=== PATIENT | female | born 1960 | race African-American/Black ===

== ENCOUNTER 2020-04-11 12:13 | Inpatient (IN) | payer MEDICAID ==
[~2020-04-11] VITALS: Ht 170.2 cm; Wt 136.1 kg
[~2020-04-11 12:13] MED LIST: AMLODIPINE BESY10 MG ORAL; ASPIR 8181 MG ORAL; ATORVASTATIN CA20 MG ORAL; BACTRIM-DS1 EA ORAL; CLOTRIMAZOLE10 GM MC; FLAGYL500 MG ORAL; LEVOFLOXACIN500 MG ORAL; LISINOPRIL10 MG ORAL; LUMIGAN2.5 ML BOTH EYES; MELOXICAM15 MG PO; MOBIC15 MG ORAL; NAPROXEN250 MG ORAL; NAPROXEN500 M2 ORAL; OMEPRAZOLE20 M3 ORAL; TIMOPTIC 0.25%1 DROP BOTH EYES
[2020-04-11 12:29] VITALS: BP 160/80
[2020-04-11 13:10] LABS: BASOPHILS % (AUTO) 0.7 % (0.0-2.0); EOSINOPHILS % (AUTO) 1.6 % (0.0-3.0); HEMATOCRIT 39.3 % (37.0-47.0); HEMOGLOBIN 13.3 G/DL (12.0-16.0); MEAN CORPUSCULAR VOLUME 78 FL (80-99); MONOCYTES % (AUTO) 6.1 % (1.0-10.0); NEUTROPHILS % (AUTO) 64.6 % (45.0-75.0); PLATELET COUNT 313 K/UL (150-450); RED BLOOD COUNT 5.05 M/UL (4.20-5.40); WHITE BLOOD COUNT 12.4 K/UL (4.8-10.8)
[2020-04-11 13:22] LABS: ANION GAP 12 mmol/L (5-15); BLOOD UREA NITROGEN 8 mg/dL (7-18); CALCIUM 9.3 MG/DL (8.5-10.1); CARBON DIOXIDE 26 MMOL/L (21-32); CHLORIDE 100 MMOL/L (98-107); CREATININE 0.9 MG/DL (0.55-1.30); POTASSIUM 4.7 MMOL/L (3.5-5.1); SODIUM 137 MMOL/L (136-145)
[2020-04-11 13:26] LABS: ALANINE AMINOTRANSFERASE 27 U/L (12-78); ALBUMIN 3.1 G/DL (3.4-5.0); ALBUMIN/GLOBULIN RATIO 0.6 (1.0-2.7); ALKALINE PHOSPHATASE 63 U/L (46-116); ASPARTATE AMINO TRANSFERASE 37 U/L (15-37); BILIRUBIN,TOTAL 0.5 MG/DL (0.2-1.0)
[2020-04-11] MEDS ORDERED: Omnipaque-300 100ml vial INJ PRN (13:30)
[2020-04-11 13:50] LABS: APPEARANCE,URINE SLIGHTLY CLOUDY; BILIRUBIN, URINE NEGATIVE (NEGATIVE); GLUCOSE, URINE (UA) NEGATIVE (NEGATIVE); KETONES,URINE NEGATIVE (NEGATIVE); LEUKOCYTE ESTERASE ,URINE NEGATIVE (NEGATIVE); NITRITE,URINE NEGATIVE (NEGATIVE); PH,URINE 6 (4.5-8.0); PROTEIN,URINE NEGATIVE (NEGATIVE); UROBILINOGEN,URINE NORMAL MG/DL (0.0-1.0)
[2020-04-11 13:59] LABS: COLOR,URINE YELLOW
[2020-04-11] MEDS ORDERED: Vancomycin 1.5gm/NS Premix 275 ML IVPB SCH (14:00)
--- NOTE | 2020-04-11 14:09 | Consultation ---
History of Present Illness General Date patient seen: April 11, 2020 Reason for Hospitalization: Skin Rash/Abscess Present Illness HPI This is a very pleasant 59-year-old female well-known to me from prior admission March of last year who presented initially last year with a right breast abscess that was concerning for potential malignancy as well at the time. Patient was taken to the operating room incision and drainage and debridement was done tissues were sent for the pathology. At that time pathology was negative patient tolerated incision and drainage well dressings well care well follow-up outpatient and recovered well since then. She has been well for the past year until proximately 2 weeks ago when she developed some pain and discomfort in her right breast again. Similar to prior and progressive over the past 2 weeks. Went to [facility] today where she was evaluated diagnosed with an abscess had a needle drainage and discharged. Patient did not improve so she came to [facility] for evaluation. She was going to get better I was called to evaluate her in the ED where she was noted to have a large right breast cellulitis, tenderness, discomfort. leukocytosis. Allergies: Coded Allergies: No Known Allergies (Unverified , 04/07/19) COVID-19 Screening Contact w/high risk pt: No Recent Travel to affected area: No Experienced COVID-19 symptoms?: No Medication History Scheduled Amlodipine Besylate* (Amlodipine Besylate*), 10 MG ORAL DAILY, (Reported) Aspirin* (Aspir 81*), 81 MG ORAL DAILY, (Reported) Atorvastatin Calcium* (Atorvastatin Calcium*), 10 MG ORAL BEDTIME, (Reported) Bimatoprost (Lumigan), 1 DROP BOTH EYES DAILY, (Reported) Levofloxacin (Levofloxacin*), 750 MG ORAL DAILY, (Reported) Lisinopril* (Lisinopril*), 10 MG ORAL DAILY, (Reported) Meloxicam* (Mobic*), 15 MG ORAL DAILY, (Reported) Meloxicam* (Meloxicam*), 15 MG PO DAILY, (Reported) Metronidazole* (Flagyl*), 500 MG ORAL EVERY 8 HOURS, (Reported) Naproxen* (Naproxen*), 500 MG ORAL TWICE A DAY, (Reported) Naproxen* (Naprosyn*), 500 MG ORAL TWICE A DAY, (Reported) Omeprazole (Omeprazole), 20 MG ORAL DAILY, (Reported) Timolol Maleate (Timolol Maleate), 1 DROP BOTH EYES TWICE A DAY, (Reported) Trimethoprim/Sulfamethoxazole (Bactrim Ds Tablet), 1 TAB ORAL TWICE A DAY, ( Reported) Miscellaneous Medications Clotrimazole (Clotrimazole), 10 GM MC, (Reported) Patient History History Provided By: Patient Healthcare decision maker Resuscitation status Advanced Directive on File Past Medical/Surgical History Past Medical/Surgical History: (1) Cellulitis of right breast (2) Abscess of right breast Review of Systems Review of Symptoms General ROS: no weight loss or fever Psychological ROS: no depression or mood changes, no memory loss Ophthalmic ROS: no visual changes or eye irritation ENT ROS: no nasal congestion, hearing loss, dizziness Allergy and Immunology ROS: no allergic symptoms or urticaria Hematological and Lymphatic ROS: no swollen glands, unusual bleeding or bruising Endocrine ROS: no polyuria, polydipsia, weight changes, temperature intolerance Respiratory ROS: no cough, shortness of breath, or wheezing Cardiovascular ROS: no chest pain or dyspnea on exertion Gastrointestinal ROS: denies abdominal pain, bright red blood in stool. Musculoskeletal ROS: no myalgias or arthralgias Neurological ROS: no TIA or stroke symptoms Dermatological ROS: no new or changing skin lesions, rashes or pruritis Physical Exam Physical Exam General appearance: alert, cooperative, no distress, appears stated age Head: Normocephalic, without obvious abnormality, atraumatic Eyes: conjunctivae/corneas clear. PERRL, EOM's intact. Fundi benign Throat: Lips, mucosa, and tongue normal. Teeth and gums normal Neck: supple, symmetrical, trachea midline, no adenopathy, thyroid: not enlarged, symmetric, no tenderness/mass/nodules, no carotid bruit and no JVD Lungs: clear to auscultation bilaterally Heart: regular rate and rhythm, S1, S2 normal, no murmur, click, rub or gallop Abdomen: soft, non-tender. Bowel sounds normal. No masses, no organomegaly Extremities: extremities normal, atraumatic, no cyanosis or edema Pulses: 2+ and symmetric Skin: Skin right breast cellulitis Neurologic: Grossly normal Last 24 Hour Vital Signs Date Time Temp Pulse Resp B/P (MAP) Pulse Ox O2 Delivery O2 Flow Rate FiO2 04/11/20 12:29 98.4 80 18 160/80 98 Room Air 04/11/20 12:23 98.4 91 18 165/80 (108) 98 Room Air Laboratory Tests Test 04/11/20 12:48 04/11/20 12:55 White Blood Count 12.4 K/UL (4.8-10.8) H Red Blood Count 5.05 M/UL (4.20-5.40) Hemoglobin 13.3 G/DL (12.0-16.0) Hematocrit 39.3 % (37.0-47.0) Mean Corpuscular Volume 78 FL (80-99) L Mean Corpuscular Hemoglobin 26.4 PG (27.0-31.0) L Mean Corpuscular Hemoglobin Concent 33.9 G/DL (32.0-36.0) Red Cell Distribution Width 12.0 % (11.6-14.8) Platelet Count 313 K/UL (150-450) Mean Platelet Volume 6.6 FL (6.5-10.1) Neutrophils (%) (Auto) 64.6 % (45.0-75.0) Lymphocytes (%) (Auto) 27.0 % (20.0-45.0) Monocytes (%) (Auto) 6.1 % (1.0-10.0) Eosinophils (%) (Auto) 1.6 % (0.0-3.0) Basophils (%) (Auto) 0.7 % (0.0-2.0) Prothrombin Time 11.3 SEC (9.30-11.50) Prothromb Time International Ratio 1.0 (0.9-1.1) Activated Partial Thromboplast Time 28 SEC (23-33) Sodium Level 137 MMOL/L (136-145) Potassium Level 4.7 MMOL/L (3.5-5.1) Chloride Level 100 MMOL/L (98-107) Carbon Dioxide Level 26 MMOL/L (21-32) Anion Gap 12 mmol/L (5-15) Blood Urea Nitrogen 8 mg/dL (7-18) Creatinine 0.9 MG/DL (0.55-1.30) Estimat Glomerular Filtration Rate > 60 mL/min (>60) Glucose Level 134 MG/DL (74-106) H Lactic Acid Level Pending Calcium Level 9.3 MG/DL (8.5-10.1) Total Bilirubin 0.5 MG/DL (0.2-1.0) Aspartate Amino Transf (AST/SGOT) 37 U/L (15-37) Alanine Aminotransferase (ALT/SGPT) 27 U/L (12-78) Alkaline Phosphatase 63 U/L (46-116) Total Protein 8.0 G/DL (6.4-8.2) Albumin 3.1 G/DL (3.4-5.0) L Globulin 4.9 g/dL Albumin/Globulin Ratio 0.6 (1.0-2.7) L Urine Color Yellow Urine Appearance Slightly cloudy Urine pH 6 (4.5-8.0) Urine Specific Jud 1.015 (1.005-1.035) Urine Protein Negative (NEGATIVE) Urine Glucose (UA) Negative (NEGATIVE) Urine Ketones Negative (NEGATIVE) Urine Blood Negative (NEGATIVE) Urine Nitrite Negative (NEGATIVE) Urine Bilirubin Negative (NEGATIVE) Urine Urobilinogen Normal MG/DL (0.0-1.0) Urine Leukocyte Esterase Negative (NEGATIVE) Urine RBC Pending Urine WBC Pending Urine Squamous Epithelial Cells Pending Urine Bacteria Pending Height (Feet): 5 Height (Inches): 7.00 Weight (Pounds): 300 Medications Current Medications Medications (Trade) Dose Ordered Sig/Yoan Route PRN Reason Start Time Stop Time Status Last Admin Dose Admin Iohexol (OMNIPAQUE-300 100ml) 100 ml NOW PRN INJ Radiology Procedure 04/11/20 13:30 04/13/20 13:30 Vancomycin/Sodium Chloride 275 ml @ 137.5 mls/ hr Q24H IVPB 04/11/20 14:00 04/16/20 13:59 Assessment/Plan Problem List: (1) Abscess of right breast Assessment & Plan: This is a 5-year-old female with history of right breast abscess a year ago status post I&D who presented to [facility] for evaluation of similar events approximately a year later. She went to [place] this morning complaining of 2 weeks of right breast pain and cellulitis which time states she had an ultrasound which identified some fluid had a needle drainage given antibiotics oral discharge but did not improve significantly with [facility]. Currently no nausea vomiting fever chills but feels unwell and pain in her right breast. Currently no drainage. Leukocytosis identified. On evaluation dense right breast cellulitis prior incision in the 12 o'clock position of the breast well-healed with keloid scar no abscess or fluctuance currently identifiable on examination. I know this patient will take care of a year ago when she had similar event. It was very difficult for her to heal her breast infection prior and cellulitis initially formed into phlegmon then larger fluid collection that required surgical intervention. High probability she will form a similar event. Will admit for IV antibiotics and close monitoring potential incision and drainage if necessary of phlegmon and abscess formed. Lung discussion with patient about these findings. Discussed with PCP for admission plan. Of note patient had her last mammogram prior to the last incision and drainage in March 2019. That mammogram per patient's report was completely benign and negative though she has not been able to provide me with the report nor tell me exactly where was performed so I can obtain the report. Intraoperative pathology taken from the abscess cavity prior with good samples identified no malignant cells or etiology of potential malignancy. Though there is a possibility of malignant etiology there is also likely that patient is just developed another abscess and cellulitis. I did have discussion with the patient and strongly recommend that once improved and recovered from this despite surgical mention or not her medical therapy that she does need to have very clear evaluation for outpatient mammogram as indicated and recommended. Okay for diet admit to medicine IV antibiotics We will follow with recommendations thank you for let me participate in patient' s care ICD Codes: N61.1 - Abscess of the breast and nipple SNOMED: [id number] (2) Cellulitis of right breast ICD Codes: N61.0 - Mastitis without abscess SNOMED: [id number] Eleno Giang April 11, 2020 14:09
[2020-04-11] MEDS ORDERED: Mylanta II UD 30ml ORAL PRN (14:15)
[2020-04-11] MEDS ORDERED: HYDROcodone/Acetamin 5/325 tab ORAL PRN (14:15)
[2020-04-11] MEDS ORDERED: DiphenhydrAMINE 25mg Tab ORAL PRN (14:15)
[2020-04-11] MEDS ORDERED: Milk of Magnesia 30ml Ud ORAL PRN (14:15)
[2020-04-11] MEDS ORDERED: LORazepam 1mg tab ORAL PRN (14:15)
--- NOTE | 2020-04-11 14:26 | Diagnostic Imaging Report ---
Indication: Chest pain Technique: XRAY Chest 1v Comparison: 04/07/2019 Findings: Heart size and mediastinal contours are within normal limits for AP technique and stable compared to the prior exam. There is no focal airspace consolidation, pneumothorax or pleural effusion. There are degenerative changes in the spine. Osseous structures demonstrate no acute abnormality. Impression: No radiographic evidence of acute cardiopulmonary disease.
--- NOTE | 2020-04-11 14:45 | History and Physical ---
History of Present Illness General Date patient seen: April 11, 2020 Time patient seen: 14:00 Reason for Hospitalization: Skin Rash/Abscess Present Illness HPI 59-year-old female with HTN, HLD, morbid obesity, right breast abscess s/p operating room incision and drainage and debridement by Dr. Giang . She has been well for the past year until proximately 2 weeks ago when she developed some pain and discomfort in her right breast again. Similar to prior and progressive over the past 2 weeks. Went to [facility] today where she was diagnosed with an abscess had a needle drainage and discharged. Patient did not improve so she came to [facility] for evaluation. Patient denies any fever, chills, myalgia, cough, dyspnea or chest pain. In ED she was diagnosed with right breast cellulitis with possible residual abscess, referred for admission. Social Hx: Current cigarette smoker, 0.5 PPD Family Hx: No premature cad Allergies: Coded Allergies: No Known Allergies (Unverified , 04/07/19) COVID-19 Screening Contact w/high risk pt: No Recent Travel to affected area: No Experienced COVID-19 symptoms?: No COVID-19 symptoms experienced: Fever (T>100.4F or >38C), Shortness of Breath, Cough Medication History Scheduled Amlodipine Besylate* (Amlodipine Besylate*), 10 MG ORAL DAILY, (Reported) Aspirin* (Aspir 81*), 81 MG ORAL DAILY, (Reported) Atorvastatin Calcium* (Atorvastatin Calcium*), 10 MG ORAL BEDTIME, (Reported) Bimatoprost (Lumigan), 1 DROP BOTH EYES DAILY, (Reported) Levofloxacin (Levofloxacin*), 750 MG ORAL DAILY, (Reported) Lisinopril* (Lisinopril*), 10 MG ORAL DAILY, (Reported) Meloxicam* (Mobic*), 15 MG ORAL DAILY, (Reported) Meloxicam* (Meloxicam*), 15 MG PO DAILY, (Reported) Metronidazole* (Flagyl*), 500 MG ORAL EVERY 8 HOURS, (Reported) Naproxen* (Naproxen*), 500 MG ORAL TWICE A DAY, (Reported) Naproxen* (Naprosyn*), 500 MG ORAL TWICE A DAY, (Reported) Omeprazole (Omeprazole), 20 MG ORAL DAILY, (Reported) Timolol Maleate (Timolol Maleate), 1 DROP BOTH EYES TWICE A DAY, (Reported) Trimethoprim/Sulfamethoxazole (Bactrim Ds Tablet), 1 TAB ORAL TWICE A DAY, ( Reported) Miscellaneous Medications Clotrimazole (Clotrimazole), 10 GM MC, (Reported) Patient History History Provided By: Patient, Medical Record Healthcare decision maker Resuscitation status Advanced Directive on File Review of Systems Constitutional: Denies: chills, sweats, fever Eye: Denies: eye pain ENT: Denies: ear pain Respiratory: Denies: cough Cardiovascular: Denies: chest pain Gastrointestinal: Denies: abdominal pain Genitourinary: Denies: discharge Musculoskeletal: Denies: back pain Skin: Reports: rash - Right breast redness Neurological: Denies: headache Physical Exam General Appearance: no apparent distress, alert Lines, tubes and drains: central line, PICC Neck: normal alignment, supple Respiratory/Chest: lungs clear, normal breath sounds, no respiratory distress Breasts: other - Rigth breast erythema and warmth with induration 11-12 o'clock Cardiovascular/Chest: normal rate, regular rhythm Abdomen: non tender, soft Extremities: non-tender, normal inspection Skin Exam: other Last 24 Hour Vital Signs Date Time Temp Pulse Resp B/P (MAP) Pulse Ox O2 Delivery O2 Flow Rate FiO2 04/11/20 12:29 98.4 80 18 160/80 98 Room Air 04/11/20 12:23 98.4 91 18 165/80 (108) 98 Room Air Laboratory Tests Test 04/11/20 12:48 04/11/20 12:55 White Blood Count 12.4 K/UL (4.8-10.8) H Red Blood Count 5.05 M/UL (4.20-5.40) Hemoglobin 13.3 G/DL (12.0-16.0) Hematocrit 39.3 % (37.0-47.0) Mean Corpuscular Volume 78 FL (80-99) L Mean Corpuscular Hemoglobin 26.4 PG (27.0-31.0) L Mean Corpuscular Hemoglobin Concent 33.9 G/DL (32.0-36.0) Red Cell Distribution Width 12.0 % (11.6-14.8) Platelet Count 313 K/UL (150-450) Mean Platelet Volume 6.6 FL (6.5-10.1) Neutrophils (%) (Auto) 64.6 % (45.0-75.0) Lymphocytes (%) (Auto) 27.0 % (20.0-45.0) Monocytes (%) (Auto) 6.1 % (1.0-10.0) Eosinophils (%) (Auto) 1.6 % (0.0-3.0) Basophils (%) (Auto) 0.7 % (0.0-2.0) Prothrombin Time 11.3 SEC (9.30-11.50) Prothromb Time International Ratio 1.0 (0.9-1.1) Activated Partial Thromboplast Time 28 SEC (23-33) Sodium Level 137 MMOL/L (136-145) Potassium Level 4.7 MMOL/L (3.5-5.1) Chloride Level 100 MMOL/L (98-107) Carbon Dioxide Level 26 MMOL/L (21-32) Anion Gap 12 mmol/L (5-15) Blood Urea Nitrogen 8 mg/dL (7-18) Creatinine 0.9 MG/DL (0.55-1.30) Estimat Glomerular Filtration Rate > 60 mL/min (>60) Glucose Level 134 MG/DL (74-106) H Lactic Acid Level Pending Calcium Level 9.3 MG/DL (8.5-10.1) Total Bilirubin 0.5 MG/DL (0.2-1.0) Aspartate Amino Transf (AST/SGOT) 37 U/L (15-37) Alanine Aminotransferase (ALT/SGPT) 27 U/L (12-78) Alkaline Phosphatase 63 U/L (46-116) Total Protein 8.0 G/DL (6.4-8.2) Albumin 3.1 G/DL (3.4-5.0) L Globulin 4.9 g/dL Albumin/Globulin Ratio 0.6 (1.0-2.7) L Urine Color Yellow Urine Appearance Slightly cloudy Urine pH 6 (4.5-8.0) Urine Specific [place] 1.015 (1.005-1.035) Urine Protein Negative (NEGATIVE) Urine Glucose (UA) Negative (NEGATIVE) Urine Ketones Negative (NEGATIVE) Urine Blood Negative (NEGATIVE) Urine Nitrite Negative (NEGATIVE) Urine Bilirubin Negative (NEGATIVE) Urine Urobilinogen Normal MG/DL (0.0-1.0) Urine Leukocyte Esterase Negative (NEGATIVE) Urine RBC 0-2 /HPF (0 - 2) Urine WBC 0-2 /HPF (0 - 2) Urine Squamous Epithelial Cells Many /LPF (NONE/OCC) H Urine Bacteria Few /HPF (NONE) Height (Feet): 5 Height (Inches): 7.00 Weight (Pounds): 300 Medications Current Medications Medications (Trade) Dose Ordered Sig/Yoan Route PRN Reason Start Time Stop Time Status Last Admin Dose Admin Acetaminophen (Tylenol) 650 mg Q4H PRN ORAL Temp >100.5 04/11/20 14:15 05/11/20 14:14 UNV Acetaminophen/ Hydrocodone Bitart ([place] 5/325) 1 tab Q4H PRN ORAL Moderate Pain (Pain Scale 4-6) 04/11/20 14:15 04/18/20 14:14 UNV Al Hydroxide/Mg Hydroxide (Mylanta II) 30 ml Q6H PRN ORAL dyspepsia 04/11/20 14:15 05/11/20 14:14 UNV Bisacodyl (Dulcolax) 10 mg HSPRN PRN RECTAL Constipation 04/11/20 14:15 07/10/20 14:14 UNV Dextrose (Dextrose 50%) 25 ml Q30M PRN IV Hypoglycemia 04/11/20 14:15 07/10/20 14:14 UNV Dextrose (Dextrose 50%) 50 ml Q30M PRN IV Hypoglycemia 04/11/20 14:15 07/10/20 14:14 UNV Dextrose/Sodium Chloride 1,000 ml @ 75 mls/hr [id number] IV 04/11/20 15:10 05/11/20 15:09 UNV Diphenhydramine HCl (Benadryl) 25 mg Q6H PRN ORAL Itching/Pruritis 04/11/20 14:15 05/11/20 14:14 UNV Docusate Sodium (Colace) 100 mg EVERY 12 HOURS ORAL 04/11/20 21:00 05/11/20 20:59 UNV Iohexol (OMNIPAQUE-300 100ml) 100 ml NOW PRN INJ Radiology Procedure 04/11/20 13:30 04/13/20 13:30 Lorazepam (Ativan) 1 mg Q4H PRN ORAL For Anxiety 04/11/20 14:15 04/18/20 14:14 UNV Magnesium Hydroxide (Mom) 30 ml HSPRN PRN ORAL Constipation 04/11/20 14:15 05/11/20 14:14 UNV Ondansetron HCl (Zofran) 4 mg Q6H PRN IVP Nausea & Vomiting 04/11/20 14:15 05/11/20 14:14 UNV Piperacillin Sod/ Tazobactam Sod 3.375 gm/Sodium Chloride 110 ml @ 27.5 mls/hr EVERY 8 HOURS IVPB 04/11/20 22:00 04/16/20 21:59 UNV Temazepam (Restoril) 15 mg HSPRN PRN ORAL Insomnia 04/11/20 14:15 04/18/20 14:14 UNV Vancomycin HCl 1 gm/Dextrose 275 ml @ 183.708 mls/hr Q24H IVPB 04/11/20 14:15 04/16/20 14:14 UNV Vancomycin/Sodium Chloride 275 ml @ 137.5 mls/ hr Q24H IVPB 04/11/20 14:00 04/16/20 13:59 04/11/20 14:21 Assessment/Plan Diagnosis [place] I: 59 year old woman with HTN, HLD, morbid obesity, active smoker who presented with right breast warmth, erythema and induration. #Sepsis #Right breast cellulitis and abscess -admit to inpatient -appreciate surgery recs -broad spectrum antibiotics with vancomycin and Zosyn -monitor CBC and vitals -follow up wound and blood cultures -IV fluids -CT chest pending #HTN #HLD #Morbid obesity -continue amlodipine and Lipitor -Hold ASA in case she requires surgery #Cigarette smoker -smoking cessation advised -Mili ruffin I spent 72 minutes on this patient's case, and 38 minutes was dedicated to counseling and/or care coordination with consulting MDs, PCP, RN Aayush Rhoades MD April 11, 2020 14:45
[2020-04-11] MEDS: D5NS 1,000 ML IV SCH (15:10)
[2020-04-11 15:41] VITALS: BP 117/70
--- NOTE | 2020-04-11 16:51 | Emergency Room Report ---
History of Present Illness General Chief Complaint: Skin Rash/Abscess Source: Patient, Medical Record Present Illness HPI 59-year-old female with history of breast abscess here complaining of swelling in right breast and drainage as well as has had pain for 2 weeks. Patient was seen [facility] 1 year ago for similar symptoms, breast biopsy, mammogram within normal limit, no cancerous mass was found. Patient went to [place] earlier today and was told that it needs to be operated on however was discharged. Also minimal pus was drained denies any fever chills, shortness of breath. Patient reports that she came here to see Dr. Giang as he took care of her last year when she had a similar condition. Patient is stable. Obvious swelling noted on right breast on the lateral side. Some retraction of the nipple noted. No nipple discharge noted. 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 Patient History Last Menstrual Period: na Now: No Immunizations: UTD Reviewed Nursing Documentation: PMH: Agreed; PSxH: Agreed Nursing Documentation-PMH Past Medical History: No History, Except For Hx Hypertension: Yes Review of Systems All Other Systems: negative except mentioned in HPI Physical Exam Vital Signs Date Time Temp Pulse Resp B/P (MAP) Pulse Ox O2 Delivery O2 Flow Rate FiO2 04/11/20 12:23 98.4 91 18 165/80 (108) 98 Room Air Sp02 EP Interpretation: reviewed, normal General Appearance: no apparent distress, alert, GCS 15, non-toxic Head: normocephalic, atraumatic Eyes: bilateral eye normal inspection, bilateral eye PERRL ENT: hearing grossly normal, normal pharynx, no angioedema, normal voice Neck: full range of motion, supple/symm/no masses Respiratory: chest non-tender, lungs clear, normal breath sounds, no rhonchi, no retraction, speaking full sentences Cardiovascular #1: regular rate, rhythm, no edema, no murmur Gastrointestinal: non tender, soft Genitourinary: no CVA tenderness Musculoskeletal: back normal, inflammation - Right breast on the lateral side action of the nipple, no calf tenderness Neurologic: alert, motor strength/tone normal, oriented x3, sensory intact, responsive, speech normal Psychiatric: judgement/insight normal, memory normal, mood/affect normal, no suicidal/homicidal ideation Skin: other - Cellulitis right breast Lymphatic: no adenopathy Medical Decision Making PA Attestation All my diagnosis and treatment plans were reviewed ad discussed with my supervising physician Dr. Deras Diagnostic Impression: Primary Impression: Abscess of right breast ER Course 59-year-old female with history of breast abscess here complaining of swelling in right breast and drainage as well as has had pain for 2 weeks. Patient was seen [facility] 1 year ago for similar symptoms, breast biopsy, mammogram within normal limit, no cancerous mass was found. Patient went to [place] earlier today and was told that it needs to be operated on however was discharged. Also minimal pus was drained denies any fever chills, shortness of breath. Patient reports that she came here to see Dr. Giang as he took care of her last year when she had a similar condition. Patient is stable. Obvious swelling noted on right breast on the lateral side. Some retraction of the nipple noted. No nipple discharge noted. Ddx considered but are not limited to : Cellulitis, breast cancer,, superficial infection, abscess Vital signs: are WNL, pt. is afebrile H&PE are most consistent with: Breast abscess and cellulitis ORDERS:, PT/PTT, CBC, CMP, UA, lactic acid, CT chest with contrast, ED INTERVENTIONS: Lilaluizacarine Patient was admitted with diagnosis of breast abscess cellulitis to Dr. Gutierrez under supervision of Dr.: Braeden Giang also examined accepted the patient pt stable at time of admission Patient was evaluated in the context of the global COVID-19 pandemic, which necessitated consideration that the patient might be at risk for infection with the SARS-COV-2 virus that causes COVID-19. Institutional protocols and algorithms that pertain to the evaluation of patients at risk for COVID-19 are in a state of rapid change based on information relieved by multiple regulatory bodies including the CDC and the federal and state organizations. These policies and algorithms were followed during the patient's care in the ED. Chest X-Ray Diagnostic Results Chest X-Ray Diagnostic Results : Chest X-Ray Ordered: Yes # of Views/Limited/Complete: 1 View Indication: Other EP Interpretation: Yes PA Xray: Interpretation reviewed, by supervising MD, and agrees with findings. Interpretation: no consolidation, no effusion, no pneumothorax Impression: No acute disease Electronically Signed by: Amaris Min PA-C CT/MRI/US Diagnostic Results CT/MRI/US Diagnostic Results : Imaging Test Ordered: CT chest with contrast Impression Inflammatory changes possible abscess right breast Last Vital Signs Date Time Temp Pulse Resp B/P (MAP) Pulse Ox O2 Delivery O2 Flow Rate FiO2 04/11/20 15:41 98.8 74 19 117/70 98 Room Air Disposition: ADMITTED INPATIENT Condition: Stable Referrals: NON PHYSICIAN (PCP) Amaris Sheehan April 11, 2020 16:51
--- NOTE | 2020-04-11 16:53 | Diagnostic Imaging Report ---
EXAM: CT CT Chest w Contrast CLINICAL HISTORY: Right chest/breast pain. Swelling and redness. TECHNIQUE: Axial images obtained through the chest with contrast. All CT scans at this facility are performed using dose modulation techniques as appropriate to a performed exam including the following: automated exposure control with adjustment of the mA and/or kV according to patient size. RADIATION DOSE: CTDIvol: 231.8 mGy DLP: 1719 mGy-cm Dose information generated by the CT scanner is available in PACS. COMPARISON: None FINDINGS: The lungs are clear bilaterally. Cardiac and mediastinal structures are within normal limits. Please note that due to patient body habitus, the breasts are not completely included in the [id number]. In particular, the right breast which is the site of interest is only partially included. The partially included portion shows skin thickening and subcutaneous induration possibly representing focal inflammatory/infectious process. The apparent breast mass is not included in the [id number]. Inflammatory breast cancer cannot be excluded. There are prominent lymph nodes in the right axilla. Limited images through the upper abdomen is unremarkable. IMPRESSION: NO ACUTE CARDIOPULMONARY DISEASE. THE RIGHT BREAST IS INCOMPLETELY VISUALIZED IN THIS EXAM OF THE CHEST. THE PARTIALLY INCLUDED PORTION SHOWS SKIN THICKENING AND SOFT TISSUE INDURATION. THIS COULD REPRESENT FOCAL INFECTIOUS/INFLAMMATORY PROCESS BUT INFLAMMATORY CARCINOMA OF THE BREAST MAY PRESENT SIMILARLY. CT EVALUATION IS NOT OPTIMAL FOR EVALUATION OF BREAST DISEASE. CONSIDER CORRELATION WITH MAMMOGRAM AND BREAST ULTRASOUND. SLIGHTLY PROMINENT RIGHT AXILLARY LYMPH NODES PERHAPS REACTIVE.
--- NOTE | 2020-04-11 17:33 | Emergency Room Report ---
Physical Exam Vital Signs Date Time Temp Pulse Resp B/P (MAP) Pulse Ox O2 Delivery O2 Flow Rate FiO2 04/11/20 12:23 98.4 91 18 165/80 (108) 98 Room Air Medical Decision Making Diagnostic Impression: Primary Impression: Abscess of right breast ER Course Patient seen in the emergency room and evaluated by ANASTASIIA Shi. Patient is seen here for breast abscess and seen by general surgery. Patient will be admitted for further treatment and evaluation. Last Vital Signs Date Time Temp Pulse Resp B/P (MAP) Pulse Ox O2 Delivery O2 Flow Rate FiO2 04/11/20 15:41 98.8 74 19 117/70 98 Room Air Disposition: ADMITTED INPATIENT Condition: Stable Referrals: NON PHYSICIAN (PCP) Thalia Burch M.D. April 11, 2020 17:33
[2020-04-11 18:05] VITALS: BP 141/47
[2020-04-11 20:00] VITALS: BP 96/57
[2020-04-11] MEDS ORDERED: Docusate 100mg cap ORAL SCH (21:00)
[2020-04-11] MEDS: Piperacillin/Tazobactam 3.375 GM in NS 110 ML IVPB SCH (21:50)
[2020-04-12] VITALS: BP 130/86
[2020-04-12] MEDS ORDERED: Vancomycin 1.5gm/NS Premix 275 ML IVPB SCH (02:00)
[2020-04-12 04:00] VITALS: BP 112/67
[2020-04-12] MEDS: D5NS 1,000 ML IV SCH (04:37)
[2020-04-12] MEDS: Piperacillin/Tazobactam 3.375 GM in NS 110 ML IVPB SCH (06:24)
[2020-04-12 07:29] LABS: BASOPHILS % (AUTO) 1.6 % (0.0-2.0); EOSINOPHILS % (AUTO) 2.8 % (0.0-3.0); HEMATOCRIT 37.9 % (37.0-47.0); HEMOGLOBIN 13.1 G/DL (12.0-16.0); LYMPHOCYTES % (AUTO) 31.1 % (20.0-45.0); MEAN CORPUSCULAR VOLUME 77 FL (80-99); NEUTROPHILS % (AUTO) 54.5 % (45.0-75.0); PLATELET COUNT 304 K/UL (150-450); RED CELL DISTRIBUTION WIDTH 11.7 % (11.6-14.8); WHITE BLOOD COUNT 8.4 K/UL (4.8-10.8)
[2020-04-12 08:10] LABS: ALANINE AMINOTRANSFERASE 27 U/L (12-78); ALBUMIN 3.1 G/DL (3.4-5.0); ALBUMIN/GLOBULIN RATIO 0.7 (1.0-2.7); ALKALINE PHOSPHATASE 63 U/L (46-116); ANION GAP 10 mmol/L (5-15); ASPARTATE AMINO TRANSFERASE 12 U/L (15-37); BILIRUBIN,TOTAL 0.4 MG/DL (0.2-1.0); BLOOD UREA NITROGEN 6 mg/dL (7-18); CALCIUM 9.1 MG/DL (8.5-10.1); CARBON DIOXIDE 27 MMOL/L (21-32); CHLORIDE 104 MMOL/L (98-107); CHOLESTEROL 154 MG/DL (< 200); HDL CHOLESTEROL 38 MG/DL (40-60); POTASSIUM 3.9 MMOL/L (3.5-5.1); SODIUM 141 MMOL/L (136-145); TRIGLYCERIDES 86 MG/DL (30-150)
--- NOTE | 2020-04-22 10:42 | Discharge Summary ---
Discharge Summary Hospital Course Date of Admission April 11, 2020 at 14:56 Date of Discharge April 12, 2020 at 07:45 Admitting Diagnosis BREAST ABCESS AND CELLULITIS HPI Araceli Craig is a 59 year old female who was admitted on April 11, 2020 at 14:56 for Breast Abcess And Cellulitis Consultations Surgery Procedures None Hospital Course Patient admitted on 04/11 with right breast cellulitis, possible abscess, started on broad spectrum antibiotics with possible need for I&D. Patient signed out AMA by RN on 04/12 at 7AM prior to my arrival to the hospital and my ability to discuss the risks of leaving when not cleared by the medical team Discharge Discharge Vital Signs As per EMR Discharge Disposition Patient left against medical advice Discharge Diagnoses: (1) Abscess of right breast Aayush Rhoades MD Apr 22, 2020 10:42
== END 2020-04-12 07:45 | disposition left against medical advice (07) | DRG 385 ==
LOC: EMR 12:47 → 4E 14:56 → EDBEDREQ 15:19
DX: N61.1 Abscess of the breast and nipple (principal); I10 Essential (primary) hypertension; E78.5 Hyperlipidemia, unspecified; E66.01 Morbid (severe) obesity due to excess calories; Z68.42 Body mass index [BMI] 45.0-49.9, adult; F17.200 Nicotine dependence, unspecified, uncomplicated; Z79.82 Long term (current) use of aspirin
CPT/HCPCS: 36415; 71045; 71260; 80053; 80061; 81001; 83036; 83605; 83880; 84443; 85025; 85610; 85730; 96365; 99285

== ENCOUNTER 2020-04-12 10:15 | Inpatient (IN) | payer MEDICAID ==
[~2020-04-12] VITALS: Ht 170.2 cm; Wt 136.1 kg
[2020-04-12 10:34] VITALS: BP 144/95
--- NOTE | 2020-04-12 10:40 | NUR ---
ED Nurse Note: Patient walked in to ER from home due to right breast tenderness and pain x 1 week. Denies breast discharge. Patient left AMA today morning from [facility] unit. Patient presented calm, cooperative, AAO x4, VSS at this time.
[2020-04-12] MEDS ORDERED: Vancomycin 1.5 GM in NS 275 ML IVPB ONE (10:45)
--- NOTE | 2020-04-12 10:51 | Emergency Room Report ---
History of Present Illness General Chief Complaint: Pain Source: Patient (Pedro Peña MD) Present Illness HPI 59-year-old female presents for abscess to right breast. States that she was seen here yesterday and was subsequently admitted. States that she left AMA but is now here to be admitted. Patient will not explain why she left AMA but agrees to be admitted at this time on will not leave again. Denies fevers or chills. Denies chest pain or shortness of breath. No other aggravating relieving factors. Denies any other associated symptoms (Pedro Peña MD) HPI This is a 59 yo F who presents to ER w/ right breast abscess; patient returns after just leaving AMA yesterday. Patient is not septic appearing and denies fever and chills. (Brenda Morales D.O.) Allergies: Coded Allergies: No Known Allergies (Unverified , 04/07/19) COVID-19 Screening Contact w/high risk pt: No Recent Travel to affected area: No Experienced COVID-19 symptoms?: No COVID-19 symptoms experienced: Fever (T>100.4F or >38C), Shortness of Breath, Cough COVID-19 Testing performed CLASSER: No (Pdero Peña MD) Patient History Past Medical History: HTN Past Surgical History: none Pertinent Family History: none Social History: Denies: smoking, alcohol use, drug use Now: No Immunizations: UTD Reviewed Nursing Documentation: PMH: Agreed; PSxH: Agreed (Pedro Peña MD) Nursing Documentation-PMH Past Medical History: No History, Except For Hx Cardiac Problems: Yes Hx Hypertension: Yes - high cholesterol Hx Cancer: No Hx Gastrointestinal Problems: No Hx Neurological Problems: No (Pedro Peña MD) Review of Systems All Other Systems: negative except mentioned in HPI (Pedro Peña MD) Physical Exam Vital Signs Date Time Temp Pulse Resp B/P (MAP) Pulse Ox O2 Delivery O2 Flow Rate FiO2 04/12/20 10:22 98.1 78 16 144/95 (111) 94 Room Air Sp02 EP Interpretation: reviewed, normal General Appearance: no apparent distress, alert, GCS 15, non-toxic, obese Head: normocephalic, atraumatic Eyes: bilateral eye normal inspection, bilateral eye PERRL ENT: hearing grossly normal, normal pharynx, no angioedema, normal voice Neck: full range of motion, supple/symm/no masses Respiratory: chest non-tender, lungs clear, normal breath sounds, speaking full sentences Cardiovascular #1: regular rate, rhythm, no edema Cardiovascular #2: 2+ carotid (R), 2+ carotid (L), 2+ radial (R), 2+ radial (L) , 2+ dorsalis pedis (R), 2+ dorsalis pedis (L) Gastrointestinal: normal bowel sounds, non tender, soft, non-distended, no guarding, no rebound Rectal: deferred Genitourinary: normal inspection, no CVA tenderness Musculoskeletal: back normal, normal range of motion, gait/station normal, non- tender Neurologic: alert, motor strength/tone normal, oriented x3, sensory intact, responsive, speech normal Psychiatric: judgement/insight normal, memory normal, mood/affect normal, no suicidal/homicidal ideation Reflexes: 3+ bicep (R), 3+ bicep (L), 3+ tricep (R), 3+ tricep (L), 3+ knee (R) , 3+ knee (L) Skin: other - erythema/induration R breast. no fluctuance or discharge Lymphatic: no adenopathy (Pedro Peña MD) Medical Decision Making Diagnostic Impression: Primary Impression: Cellulitis of right breast ER Course Hospital Course 59-year-old female presents to ED with pain R breast. admitted here yesterday and left AMA Differential diagnoses include: Cellulitis, abscess, rash. Clinical course Patient placed on stretcher. After initial history and physical I ordered labs , blood Cx labs reviewed - no leukocytosis, Hb/Hct stable, no electrolyte abnormalities. antibiotics given Dr Giang aware that patient has returned and he is at bedside to evaluate patient Case discussed with Dr Weber and he agreed to accept the patient to his service for further care and support Diagnosis - cellulitis of R breast Patient admitted to floor in serious condition Labs Test 04/12/20 11:15 White Blood Count 9.3 K/UL (4.8-10.8) Red Blood Count 4.99 M/UL (4.20-5.40) Hemoglobin 13.1 G/DL (12.0-16.0) Hematocrit 38.7 % (37.0-47.0) Mean Corpuscular Volume 78 FL (80-99) Mean Corpuscular Hemoglobin 26.3 PG (27.0-31.0) Mean Corpuscular Hemoglobin Concent 33.9 G/DL (32.0-36.0) Red Cell Distribution Width 11.8 % (11.6-14.8) Platelet Count 313 K/UL (150-450) Mean Platelet Volume 6.4 FL (6.5-10.1) Neutrophils (%) (Auto) 55.2 % (45.0-75.0) Lymphocytes (%) (Auto) 33.2 % (20.0-45.0) Monocytes (%) (Auto) 8.4 % (1.0-10.0) Eosinophils (%) (Auto) 2.2 % (0.0-3.0) Basophils (%) (Auto) 1.0 % (0.0-2.0) Urine Color Pale yellow Urine Appearance Clear Urine pH 6.5 (4.5-8.0) Urine Specific [place] 1.010 (1.005-1.035) Urine Protein Negative (NEGATIVE) Urine Glucose (UA) Negative (NEGATIVE) Urine Ketones Negative (NEGATIVE) Urine Blood Negative (NEGATIVE) Urine Nitrite Negative (NEGATIVE) Urine Bilirubin Negative (NEGATIVE) Urine Urobilinogen Normal MG/DL (0.0-1.0) Urine Leukocyte Esterase Negative (NEGATIVE) Sodium Level 140 MMOL/L (136-145) Potassium Level 4.2 MMOL/L (3.5-5.1) Chloride Level 103 MMOL/L (98-107) Carbon Dioxide Level 28 MMOL/L (21-32) Anion Gap 9 mmol/L (5-15) Blood Urea Nitrogen 9 mg/dL (7-18) Creatinine 0.8 MG/DL (0.55-1.30) Estimat Glomerular Filtration Rate > 60 mL/min (>60) Glucose Level 96 MG/DL (74-106) Lactic Acid Level 0.80 mmol/L (0.4-2.0) Calcium Level 9.3 MG/DL (8.5-10.1) Total Bilirubin 0.4 MG/DL (0.2-1.0) Aspartate Amino Transf (AST/SGOT) 18 U/L (15-37) Alanine Aminotransferase (ALT/SGPT) 22 U/L (12-78) Alkaline Phosphatase 65 U/L (46-116) Total Protein 7.9 G/DL (6.4-8.2) Albumin 3.2 G/DL (3.4-5.0) Globulin 4.7 g/dL Albumin/Globulin Ratio 0.7 (1.0-2.7) (Pedro Peña MD) Last Vital Signs Date Time Temp Pulse Resp B/P (MAP) Pulse Ox O2 Delivery O2 Flow Rate FiO2 04/12/20 10:34 98.1 16 144/95 94 Room Air 04/12/20 10:22 78 Status: improved (Pedro Peña MD) Disposition: ADMITTED INPATIENT Condition: Serious Referrals: NON PHYSICIAN (PCP) Pedro Peña MD April 12, 2020 10:51 Brenda Morales D.O. April 12, 2020 12:19
--- NOTE | 2020-04-12 11:10 | NUR ---
ED Nurse Note: IV access established on left wrist 20 ga, blood and urine specimen were collected, sent down
[2020-04-12 11:31] LABS: EOSINOPHILS % (AUTO) 2.2 % (0.0-3.0); HEMATOCRIT 38.7 % (37.0-47.0); HEMOGLOBIN 13.1 G/DL (12.0-16.0); LYMPHOCYTES % (AUTO) 33.2 % (20.0-45.0); MEAN CORPUSCULAR VOLUME 78 FL (80-99); MONOCYTES % (AUTO) 8.4 % (1.0-10.0); NEUTROPHILS % (AUTO) 55.2 % (45.0-75.0); PLATELET COUNT 313 K/UL (150-450); RED BLOOD COUNT 4.99 M/UL (4.20-5.40); RED CELL DISTRIBUTION WIDTH 11.8 % (11.6-14.8); WHITE BLOOD COUNT 9.3 K/UL (4.8-10.8)
[2020-04-12 11:35] LABS: APPEARANCE,URINE CLEAR; BILIRUBIN, URINE NEGATIVE (NEGATIVE); COLOR,URINE PALE YELLOW; GLUCOSE, URINE (UA) NEGATIVE (NEGATIVE); KETONES,URINE NEGATIVE (NEGATIVE); LEUKOCYTE ESTERASE ,URINE NEGATIVE (NEGATIVE); NITRITE,URINE NEGATIVE (NEGATIVE); PH,URINE 6.5 (4.5-8.0); PROTEIN,URINE NEGATIVE (NEGATIVE); UROBILINOGEN,URINE NORMAL MG/DL (0.0-1.0)
[2020-04-12 11:49] LABS: ANION GAP 9 mmol/L (5-15); BLOOD UREA NITROGEN 9 mg/dL (7-18); CALCIUM 9.3 MG/DL (8.5-10.1); CARBON DIOXIDE 28 MMOL/L (21-32); CHLORIDE 103 MMOL/L (98-107); CREATININE 0.8 MG/DL (0.55-1.30); POTASSIUM 4.2 MMOL/L (3.5-5.1); SODIUM 140 MMOL/L (136-145)
--- NOTE | 2020-04-12 11:50 | NUR ---
ED Nurse Note: sandwich and juice were provided
[2020-04-12 11:54] LABS: ALANINE AMINOTRANSFERASE 22 U/L (12-78); ALBUMIN 3.2 G/DL (3.4-5.0); ALBUMIN/GLOBULIN RATIO 0.7 (1.0-2.7); ALKALINE PHOSPHATASE 65 U/L (46-116); ASPARTATE AMINO TRANSFERASE 18 U/L (15-37); BILIRUBIN,TOTAL 0.4 MG/DL (0.2-1.0)
[2020-04-12 12:11] VITALS: BP 142/94
--- NOTE | 2020-04-12 12:25 | History & Physical ---
History of Present Illness General Reason for Hospitalization: Pain Present Illness HPI This is a 59 yo F who presents to ER, after leaving AMA just yesterday, w/ a CC of breast pain; previous imaging, both CT and US showed concern for right breast abscess vs carcinoma. However, patient has a hx of Breast Abscess, and states her last mammogram was a couple years ago prior to I &D and was told it was WNL. Patient will be evaluated by surgery. She is not septic appearing, Labs mostly unremarkable. PMH of HTN and HLD.She denies fevers and other complaints at this time, including shortness of breath and chest pain. Patient states symptoms have been present for 3-4 days. PMH: HTN, HLD, Right Breast Abscess PSH: S/P I & D of right breast SH: THC + FH: Autoimmune Dx Allergies: Coded Allergies: No Known Allergies (Unverified , 04/07/19) COVID-19 Screening Contact w/high risk pt: No Recent Travel to affected area: No Experienced COVID-19 symptoms?: No COVID-19 symptoms experienced: Fever (T>100.4F or >38C), Shortness of Breath, Cough Medication History Scheduled Amlodipine Besylate* (Amlodipine Besylate*), 10 MG ORAL DAILY, (Reported) Aspirin* (Aspir 81*), 81 MG ORAL DAILY, (Reported) Atorvastatin Calcium* (Atorvastatin Calcium*), 10 MG ORAL BEDTIME, (Reported) Bimatoprost (Lumigan), 1 DROP BOTH EYES DAILY, (Reported) Levofloxacin (Levofloxacin*), 750 MG ORAL DAILY, (Reported) Lisinopril* (Lisinopril*), 10 MG ORAL DAILY, (Reported) Meloxicam* (Mobic*), 15 MG ORAL DAILY, (Reported) Meloxicam* (Meloxicam*), 15 MG PO DAILY, (Reported) Metronidazole* (Flagyl*), 500 MG ORAL EVERY 8 HOURS, (Reported) Naproxen* (Naproxen*), 500 MG ORAL TWICE A DAY, (Reported) Naproxen* (Naprosyn*), 500 MG ORAL TWICE A DAY, (Reported) Omeprazole (Omeprazole), 20 MG ORAL DAILY, (Reported) Timolol Maleate (Timolol Maleate), 1 DROP BOTH EYES TWICE A DAY, (Reported) Trimethoprim/Sulfamethoxazole (Bactrim Ds Tablet), 1 TAB ORAL TWICE A DAY, ( Reported) Miscellaneous Medications Clotrimazole (Clotrimazole), 10 GM , (Reported) Patient History Healthcare decision maker Resuscitation status Advanced Directive on File Review of Systems Review of Symptoms General ROS: no weight loss or fever Psychological ROS: no depression or mood changes, no memory loss Ophthalmic ROS: no visual changes or eye irritation ENT ROS: no nasal congestion, hearing loss, dizziness Allergy and Immunology ROS: no allergic symptoms or urticaria Hematological and Lymphatic ROS: no swollen glands, unusual bleeding or bruising Endocrine ROS: no polyuria, polydipsia, weight changes, temperature intolerance Respiratory ROS: no cough, shortness of breath, or wheezing Cardiovascular ROS: no chest pain or dyspnea on exertion Gastrointestinal ROS: denies abdominal pain, bright red blood in stool. Musculoskeletal ROS: no myalgias or arthralgias Neurological ROS: no TIA or stroke symptoms Dermatological ROS: Right breast pain , induration, redness Physical Exam Physical Exam General appearance: alert, cooperative, no distress, appears stated age Head: Normocephalic, without obvious abnormality, atraumatic Eyes: conjunctivae/corneas clear. PERRL, EOM's intact. Fundi benign Throat: Lips, mucosa, and tongue normal. Teeth and gums normal Neck: supple, symmetrical, trachea midline, no adenopathy, thyroid: not enlarged, symmetric, no tenderness/mass/nodules, no carotid bruit and no JVD Lungs: clear to auscultation bilaterally Heart: regular rate and rhythm, S1, S2 normal, no murmur, click, rub or gallop Abdomen: soft, non-tender. Bowel sounds normal. No masses, no organomegaly Extremities: extremities normal, atraumatic, no cyanosis or edema Pulses: 2+ and symmetric Skin: Right breast induration w/ redness and erythema, no purulent drainage noted Neurologic: Grossly normal Last 24 Hour Vital Signs Date Time Temp Pulse Resp B/P (MAP) Pulse Ox O2 Delivery O2 Flow Rate FiO2 04/12/20 12:11 98.1 78 16 142/94 94 Room Air 04/12/20 10:34 98.1 16 144/95 94 Room Air 04/12/20 10:22 98.1 78 16 144/95 (111) 94 Room Air Laboratory Tests Test 04/12/20 11:15 White Blood Count 9.3 K/UL (4.8-10.8) Red Blood Count 4.99 M/UL (4.20-5.40) Hemoglobin 13.1 G/DL (12.0-16.0) Hematocrit 38.7 % (37.0-47.0) Mean Corpuscular Volume 78 FL (80-99) L Mean Corpuscular Hemoglobin 26.3 PG (27.0-31.0) L Mean Corpuscular Hemoglobin Concent 33.9 G/DL (32.0-36.0) Red Cell Distribution Width 11.8 % (11.6-14.8) Platelet Count 313 K/UL (150-450) Mean Platelet Volume 6.4 FL (6.5-10.1) L Neutrophils (%) (Auto) 55.2 % (45.0-75.0) Lymphocytes (%) (Auto) 33.2 % (20.0-45.0) Monocytes (%) (Auto) 8.4 % (1.0-10.0) Eosinophils (%) (Auto) 2.2 % (0.0-3.0) Basophils (%) (Auto) 1.0 % (0.0-2.0) Urine Color Pale yellow Urine Appearance Clear Urine pH 6.5 (4.5-8.0) Urine Specific [place] 1.010 (1.005-1.035) Urine Protein Negative (NEGATIVE) Urine Glucose (UA) Negative (NEGATIVE) Urine Ketones Negative (NEGATIVE) Urine Blood Negative (NEGATIVE) Urine Nitrite Negative (NEGATIVE) Urine Bilirubin Negative (NEGATIVE) Urine Urobilinogen Normal MG/DL (0.0-1.0) Urine Leukocyte Esterase Negative (NEGATIVE) Sodium Level 140 MMOL/L (136-145) Potassium Level 4.2 MMOL/L (3.5-5.1) Chloride Level 103 MMOL/L (98-107) Carbon Dioxide Level 28 MMOL/L (21-32) Anion Gap 9 mmol/L (5-15) Blood Urea Nitrogen 9 mg/dL (7-18) Creatinine 0.8 MG/DL (0.55-1.30) Estimat Glomerular Filtration Rate > 60 mL/min (>60) Glucose Level 96 MG/DL (74-106) Lactic Acid Level 0.80 mmol/L (0.4-2.0) Calcium Level 9.3 MG/DL (8.5-10.1) Total Bilirubin 0.4 MG/DL (0.2-1.0) Aspartate Amino Transf (AST/SGOT) 18 U/L (15-37) Alanine Aminotransferase (ALT/SGPT) 22 U/L (12-78) Alkaline Phosphatase 65 U/L (46-116) Total Protein 7.9 G/DL (6.4-8.2) Albumin 3.2 G/DL (3.4-5.0) L Globulin 4.7 g/dL Albumin/Globulin Ratio 0.7 (1.0-2.7) L Height (Feet): 5 Height (Inches): 7.00 Weight (Pounds): 300 Medications Current Medications Medications (Trade) Dose Ordered Sig/Yoan Route PRN Reason Start Time Stop Time Status Last Admin Dose Admin Vancomycin HCl 1.5 gm/Sodium Chloride 275 ml @ 137.5 mls/ hr ONCE ONCE IVPB 04/12/20 10:45 04/12/20 12:44 04/12/20 11:30 Assessment/Plan Assessment/Plan: Assessment #Breast Abscess; appreciate surgery, patient w/ hx of I&D from similar issues, states last mammogram a couple years ago, Breast US noted #HTN #HLD Plan Await surgery recs, anticipate conservative management Vancomycin IV empirically Resume home meds , norvasc and atorvastatin Pain control, supportive measures DVT ppx Diet MIPS Hospital declaration INPATIENT level of care is warranted for this patient because patient is a 89 year old with who presents with suspicion of . I have a high level of concern because . Patient is at high risk for . Plan of care/treatment include . Patient care is expected to be greater than 2 midnights. OBSERVATION level of care is warranted for this patient. Patient is a 89 year old with who presents with . Patient will be admitted for 1 midnight, but if additional night(s) is/are necessary, patient will be converted to inpatient status for the entire hospitalization Disposition: Once the patient is stable to leave the hospital, I anticipate the patient will likely be discharged to the following environment: Estimated discharge date: I spent 70 minutes on this patient's case, and minutes was dedicated to counseling and/or care coordination. MIPS ([employer]-based Incentive Payment System) Applicable CPT: 55695, 14989 CHECK ALL THAT ARE MET: Measure #5 (CHF): All ages. Prescribe DAVID/ARB upon discharge for patients with left ventricular systolic dysfunction. If not, the reason is clearly documented in the medical chart. Measure #8 (CHF): All ages. Prescribe a beta sofia upon discharge for patients with left ventricular systolic dysfunction. If not, the reason is clearly documented in the medical chart. Measure #47 Advance care plan or surrogate decision maker documented in the medical record. Measure #130 The provider has documented, updated, or reviewed the patients current medication list and has documented it in the patients note. Measure #374 (All): Send report to referring provider. Measure #407(Sepsis due to MSSA bacteremia): Age 18+ Patient treated with a beta-lactam antibiotic (Nafcillin, Oxacillin or Cefazolin) as definitive therapy. MEDICAL COMPLEXITY High complexity medical decision making (need 2/3 categories) Problem - need 4 points Acute/new problem with new plan for workup (4 points, 1 max) Acute/new problem without additional workup (3 points, 1 max) Unstable chronic problem actively being managed (2 point each, 2 max) Stable chronic problem actively being managed (1 point each, 2 max) Self-limited/transient process (constipation, muscle ache, etc) (1 point each , 2 max) Data - need 4 points Reviewed labs/imaging studies (1 points, 2 max) Independent review of imaging (EKG, xrays, etc) (2 points, 2 max) Discussed case with consult/other MD/RN (2 points, 2 max) High Risk - qualify if have one of the following: Severe exacerbation of acute problem, acute mental status change, IV narcotics , monitoring drug levels (vancomycin, INR, tacrolimus etc) Brenda Morales D.O. April 12, 2020 12:25
--- NOTE | 2020-04-12 12:30 | NUR ---
NURSE NOTES: Report received from ED Nurse Janae. Received patient in [facility] from ED. Pt is AAO x 4, ambulatory, with c/o tenderness and pain to R breast. Pt has L wrist 20g pIV placed in ED this AM. Pt is a re-admit as patient left unit this morning AMA. VSS. Pt with no apparent distress at this time on RA. Skin intact with discoloration to R lower and lateral breast. MD notified of admission. Admission orders received. Will continue to monitor pt and initiate POC.
--- NOTE | 2020-04-12 12:31 | NUR ---
NURSE NOTES: Patient refused RN to check her belongings. ER did belonging check and patient verbalized that she has everything. Will follow up later again.
--- NOTE | 2020-04-12 12:40 | NUR ---
ED Nurse Note: Patient was admited to [facility], due to right breast celullitis. Patient was transfered to the unit via gurney, with all belongings. Patient AAO x4, VSS at this time.
[2020-04-12 13:00] VITALS: BP 122/69
[2020-04-12] MEDS ORDERED: Morphine Sulfate 2mg/ml Inj(IV/IM USE ONLY) IVP PRN (13:15)
--- NOTE | 2020-04-12 14:40 | NUR ---
NURSE NOTES: Received urine drug test from Dr. Morales. Lab will add on to collected urine from earlier.
--- NOTE | 2020-04-12 15:00 | NUR ---
NURSE NOTES: Received report from [facility],Urine drug screen came back positive with THC with no new order. Per Dr. Andrew murcia to give morphine PRN.
--- NOTE | 2020-04-12 15:10 | NUR ---
NURSE NOTES: RN asked patient if RN and patient can check her belongings but patient refused stating " It is not gonna happen." Security was called and patient threw her bags on the floor stating " Put them back where they were." Patient refused x3.
[2020-04-12 16:00] VITALS: BP 117/57
[2020-04-12] MEDS: TIMOLOL MALEATE 0.25% BOTH EYES SCH (18:45)
--- NOTE | 2020-04-12 19:20 | NUR ---
NURSE NOTES: RECEIVED PATIENT FROM JACOBY NICOLE AND JACOBY MOORE. PATIENT IS AWAKE, AAOX4, ON ROOM AIR, DENIES PAIN, NO ACUTE DISTRESS NOTED. IV ON LEFT HAND INTACT AND PATENT. ERYTHEMA AND SWELLING NOTED ON RIGHT BREAST. PATIENT IS ABLE TO AMBULATE, STEADY GAIT. BED IS LOCKED AND LOW, BED ALARMS ACTIVE, SIDE RAILS UPX2, AND CALL LIGHT IS WITHIN REACH. WILL CONTINUE TO MONITOR.
--- NOTE | 2020-04-12 19:28 | NUR ---
HAND-OFF: Report given to Donna RN and endorsed plan of care.
[2020-04-12 20:00] VITALS: BP 148/71
[2020-04-12] MEDS: Latanoprost 0.005% Opth 2.5ml Soln BOTH EYES SCH (21:09)
[2020-04-12] MEDS: Vancomycin 1gm/D5W 275ml IVPB SCH ×2 (21:10)
[2020-04-13] VITALS: BP 130/77
[2020-04-13 04:00] VITALS: BP 124/70
[2020-04-13 06:40] LABS: BASOPHILS % (AUTO) 1.2 % (0.0-2.0); HEMATOCRIT 39.7 % (37.0-47.0); HEMOGLOBIN 13.6 G/DL (12.0-16.0); LYMPHOCYTES % (AUTO) 41.3 % (20.0-45.0); MEAN CORPUSCULAR VOLUME 78 FL (80-99); MONOCYTES % (AUTO) 8.4 % (1.0-10.0); NEUTROPHILS % (AUTO) 45.1 % (45.0-75.0); PLATELET COUNT 328 K/UL (150-450); RED BLOOD COUNT 5.08 M/UL (4.20-5.40); RED CELL DISTRIBUTION WIDTH 11.7 % (11.6-14.8)
[2020-04-13 06:52] LABS: ALANINE AMINOTRANSFERASE 27 U/L (12-78); ALBUMIN 3.2 G/DL (3.4-5.0); ALBUMIN/GLOBULIN RATIO 0.6 (1.0-2.7); ALKALINE PHOSPHATASE 66 U/L (46-116); ANION GAP 7 mmol/L (5-15); ASPARTATE AMINO TRANSFERASE 15 U/L (15-37); BILIRUBIN,TOTAL 0.4 MG/DL (0.2-1.0); BLOOD UREA NITROGEN 10 mg/dL (7-18); CALCIUM 9.5 MG/DL (8.5-10.1); CARBON DIOXIDE 31 MMOL/L (21-32); CHLORIDE 103 MMOL/L (98-107); PHOSPHORUS 4.2 MG/DL (2.5-4.9); POTASSIUM 4.2 MMOL/L (3.5-5.1); SODIUM 141 MMOL/L (136-145)
--- NOTE | 2020-04-13 07:51 | NUR ---
NURSE NOTES: Patient awake, alert x4; on room air, no sing of distress and shortness of breath; no sing of chest pain; IV Left-hand flushes well; Right Breast red and swollen; side rails up x2, breaks engaged, bed at lowest position; call light within reach; will keep monitoring.
[2020-04-13 08:00] VITALS: BP 169/110
--- NOTE | 2020-04-13 08:01 | NUR ---
HAND-OFF: Report given to JACOBY Brown.
[2020-04-13] MEDS: Aspirin EC 81mg tab ORAL SCH (08:50)
[2020-04-13] MEDS: Meloxicam 15 MG TAB ORAL SCH (08:53)
[2020-04-13] MEDS: Lisinopril 10mg tab ORAL SCH (08:53)
[2020-04-13] MEDS: TIMOLOL MALEATE 0.25% BOTH EYES SCH ×3 (08:54→17:05)
[2020-04-13] MEDS: Vancomycin 1gm/D5W 275ml IVPB SCH ×2 (09:51)
[2020-04-13 12:00] VITALS: BP 154/103
--- NOTE | 2020-04-13 12:10 | NUR ---
NURSE NOTES: After the Vancomycin antibiotic done, patient pulled her IV line out; patient doesn't let me try to get another IV line on her; patient said I will get another IV line when I hung her next antibiotic; Charge nurse, Du is aware;
--- NOTE | 2020-04-13 12:51 | Internal Med Progress Note ---
Subjective Date of Service: April 13, 2020 Physician Name Brenda Morales Attending Physician Jackie Gore MD Current Medications Medications (Trade) Dose Ordered Sig/Yoan Route PRN Reason Start Time Stop Time Status Last Admin Dose Admin Acetaminophen (Tylenol) 650 mg Q4H PRN ORAL Temp >100.5/Mild pain 1-3 04/12/20 13:15 05/12/20 13:14 04/13/20 08:52 Amlodipine Besylate (Norvasc) 10 mg DAILY ORAL 04/13/20 09:00 05/13/20 08:59 04/13/20 08:53 Aspirin (Ecotrin) 81 mg DAILY ORAL 04/13/20 09:00 05/28/20 08:59 04/13/20 08:50 Atorvastatin Calcium (Lipitor) 10 mg BEDTIME ORAL 04/12/20 21:00 07/11/20 20:59 04/12/20 21:09 Latanoprost (Xalatan) 1 drop BEDTIME BOTH EYES 04/12/20 21:00 05/12/20 20:59 04/12/20 21:09 Lisinopril (ZestriL) 10 mg DAILY ORAL 04/13/20 09:00 05/13/20 08:59 04/13/20 08:53 Meloxicam (Mobic) 15 mg DAILY ORAL 04/13/20 09:00 05/13/20 08:59 04/13/20 08:53 Morphine Sulfate (Morphine Sulfate) 1 mg Q4H PRN IVP For Pain 4-10 04/12/20 13:15 04/19/20 13:14 Ondansetron HCl (Zofran) 4 mg Q6H PRN IVP Nausea & Vomiting 04/12/20 13:15 05/12/20 13:14 Timolol Maleate (timoloL maleate 0.25% Op Soln) 1 drop TWICE A DAY BOTH EYES 04/12/20 18:00 05/12/20 17:59 04/13/20 08:54 Vancomycin HCl (Vanco rx to dose) 1 ea DAILY PRN MISC Per rx protocol 04/12/20 13:15 05/12/20 13:14 Vancomycin HCl 1 gm/Dextrose 275 ml @ 183.708 mls/hr Q12H IVPB 04/12/20 22:00 04/17/20 21:59 04/13/20 09:51 Allergies: Coded Allergies: No Known Allergies (Unverified , 04/07/19) Subjective Patient is doing well; states redness and induration are improving. Continue Vancomycin IV and f/u with Surgery Objective Last Vital Signs Date Time Temp Pulse Resp B/P (MAP) Pulse Ox O2 Delivery O2 Flow Rate FiO2 04/13/20 12:00 96.6 61 20 154/103 (120) 98 04/13/20 09:00 Room Air General Appearance: WD/WN, no apparent distress EENT: PERRL/EOMI Cardiovascular: normal rate, regular rhythm Respiratory/Chest: normal breath sounds, no respiratory distress, no accessory muscle use Abdomen: soft Neurologic: federal appellate clerk II-XII grossly normal Skin: other - right breast cellulitis improving Laboratory Tests Test 04/13/20 05:30 White Blood Count 7.0 K/UL (4.8-10.8) Red Blood Count 5.08 M/UL (4.20-5.40) Hemoglobin 13.6 G/DL (12.0-16.0) Hematocrit 39.7 % (37.0-47.0) Mean Corpuscular Volume 78 FL (80-99) L Mean Corpuscular Hemoglobin 26.8 PG (27.0-31.0) L Mean Corpuscular Hemoglobin Concent 34.3 G/DL (32.0-36.0) Red Cell Distribution Width 11.7 % (11.6-14.8) Platelet Count 328 K/UL (150-450) Mean Platelet Volume 5.9 FL (6.5-10.1) L Neutrophils (%) (Auto) 45.1 % (45.0-75.0) Lymphocytes (%) (Auto) 41.3 % (20.0-45.0) Monocytes (%) (Auto) 8.4 % (1.0-10.0) Eosinophils (%) (Auto) 4.0 % (0.0-3.0) H Basophils (%) (Auto) 1.2 % (0.0-2.0) Sodium Level 141 MMOL/L (136-145) Potassium Level 4.2 MMOL/L (3.5-5.1) Chloride Level 103 MMOL/L (98-107) Carbon Dioxide Level 31 MMOL/L (21-32) Anion Gap 7 mmol/L (5-15) Blood Urea Nitrogen 10 mg/dL (7-18) Creatinine 1.0 MG/DL (0.55-1.30) Estimat Glomerular Filtration Rate > 60 mL/min (>60) Glucose Level 102 MG/DL (74-106) Calcium Level 9.5 MG/DL (8.5-10.1) Phosphorus Level 4.2 MG/DL (2.5-4.9) Magnesium Level 1.9 MG/DL (1.8-2.4) Total Bilirubin 0.4 MG/DL (0.2-1.0) Aspartate Amino Transf (AST/SGOT) 15 U/L (15-37) Alanine Aminotransferase (ALT/SGPT) 27 U/L (12-78) Alkaline Phosphatase 66 U/L (46-116) Total Protein 8.2 G/DL (6.4-8.2) Albumin 3.2 G/DL (3.4-5.0) L Globulin 5.0 g/dL Albumin/Globulin Ratio 0.6 (1.0-2.7) L Intake and Output 04/12/20 04/13/20 19:00 07:00 Intake Total 675.0 ml 367.416 ml Balance 675.0 ml 367.416 ml Intake Oral 400 ml IV Total 275.0 ml 367.416 ml # Voids 1 3 # Bowel Movements 1 Assessment/Plan Assessment/Plan Assessment #Breast Abscess; appreciate surgery, patient w/ hx of I&D from similar issues, states last mammogram a couple years ago, Breast US noted #HTN #HLD Plan Await surgery recs, anticipate conservative management Vancomycin IV empirically Resume home meds , norvasc and atorvastatin Pain control, supportive measures DVT ppx Diet 04/14: Continue IV AB; anticipate d/c in next one to two days Brenda Morales D.O. April 13, 2020 12:51
--- NOTE | 2020-04-13 14:34 | Consultation ---
History of Present Illness General Date patient seen: April 13, 2020 Reason for Hospitalization: Pain Present Illness HPI 59-year-old female presents for cellulitis/abscess to right breast. She was just recently admitted but left AMA. States that she left AMA because she felt uncomfortable but is now back and wanted to be admitted given cellulitis not improving. Patient will not explain why she left AMA but agrees to be admitted at this time on will not leave again. Denies fevers or chills. Denies chest pain or shortness of breath. No other aggravating relieving factors. Denies any other associated symptoms continues to have cellulitis of right breast. See my prior consult's initial admission was evaluated asked to reevaluate upon readmission Allergies: Coded Allergies: No Known Allergies (Unverified , 04/07/19) COVID-19 Screening Contact w/high risk pt: No Recent Travel to affected area: No Experienced COVID-19 symptoms?: No COVID-19 symptoms experienced: Fever (T>100.4F or >38C), Shortness of Breath, Cough Medication History Scheduled Amlodipine Besylate* (Amlodipine Besylate*), 10 MG ORAL DAILY, (Reported) Aspirin* (Aspir 81*), 81 MG ORAL DAILY, (Reported) Atorvastatin Calcium* (Atorvastatin Calcium*), 10 MG ORAL BEDTIME, (Reported) Bimatoprost (Lumigan), 1 DROP BOTH EYES DAILY, (Reported) Levofloxacin (Levofloxacin*), 750 MG ORAL DAILY, (Reported) Lisinopril* (Lisinopril*), 10 MG ORAL DAILY, (Reported) Meloxicam* (Mobic*), 15 MG ORAL DAILY, (Reported) Meloxicam* (Meloxicam*), 15 MG PO DAILY, (Reported) Metronidazole* (Flagyl*), 500 MG ORAL EVERY 8 HOURS, (Reported) Naproxen* (Naproxen*), 500 MG ORAL TWICE A DAY, (Reported) Naproxen* (Naprosyn*), 500 MG ORAL TWICE A DAY, (Reported) Omeprazole (Omeprazole), 20 MG ORAL DAILY, (Reported) Timolol Maleate (Timolol Maleate), 1 DROP BOTH EYES TWICE A DAY, (Reported) Trimethoprim/Sulfamethoxazole (Bactrim Ds Tablet), 1 TAB ORAL TWICE A DAY, ( Reported) Miscellaneous Medications Clotrimazole (Clotrimazole), 10 GM , (Reported) Patient History History Provided By: Patient, Medical Record, PMD Healthcare decision maker Resuscitation status Advanced Directive on File Past Medical/Surgical History Past Medical/Surgical History: (1) Edema (2) Abscess of right breast (3) Cellulitis of right breast Review of Systems Review of Symptoms General ROS: no weight loss or fever Psychological ROS: no depression or mood changes, no memory loss Ophthalmic ROS: no visual changes or eye irritation ENT ROS: no nasal congestion, hearing loss, dizziness Allergy and Immunology ROS: no allergic symptoms or urticaria Hematological and Lymphatic ROS: no swollen glands, unusual bleeding or bruising Endocrine ROS: no polyuria, polydipsia, weight changes, temperature intolerance Respiratory ROS: no cough, shortness of breath, or wheezing Cardiovascular ROS: no chest pain or dyspnea on exertion Gastrointestinal ROS: denies abdominal pain, bright red blood in stool. Musculoskeletal ROS: no myalgias or arthralgias Neurological ROS: no TIA or stroke symptoms Dermatological ROS: no new or changing skin lesions, rashes or pruritis Physical Exam Physical Exam General appearance: alert, cooperative, no distress, appears stated age Head: Normocephalic, without obvious abnormality, atraumatic Eyes: conjunctivae/corneas clear. PERRL, EOM's intact. Fundi benign Throat: Lips, mucosa, and tongue normal. Teeth and gums normal Neck: supple, symmetrical, trachea midline, no adenopathy, thyroid: not enlarged, symmetric, no tenderness/mass/nodules, no carotid bruit and no JVD Lungs: clear to auscultation bilaterally Heart: regular rate and rhythm, S1, S2 normal, no murmur, click, rub or gallop Abdomen: soft, non-tender. Bowel sounds normal. No masses, no organomegaly Extremities: extremities normal, atraumatic, no cyanosis or edema Pulses: 2+ and symmetric Skin: Skin color, texture, turgor normal. No rashes or lesions Neurologic: Grossly normal Last 24 Hour Vital Signs Date Time Temp Pulse Resp B/P (MAP) Pulse Ox O2 Delivery O2 Flow Rate FiO2 04/13/20 12:00 96.6 61 20 154/103 (120) 98 04/13/20 09:22 97.8 04/13/20 09:00 Room Air 04/13/20 08:53 169/116 5/24/20 08:53 68 169/116 04/13/20 08:00 97.2 68 18 169/110 (129) 95 04/13/20 04:00 97.8 69 18 124/70 (88) 96 04/13/20 00:00 97.7 60 19 130/77 (94) 98 04/12/20 21:00 Room Air 04/12/20 20:00 97.8 72 20 148/71 (96) 95 04/12/20 16:00 98.1 78 18 117/57 (77) 100 Intake and Output 04/12/20 04/13/20 19:00 07:00 Intake Total 675.0 ml 367.416 ml Balance 675.0 ml 367.416 ml Intake Oral 400 ml IV Total 275.0 ml 367.416 ml # Voids 1 3 # Bowel Movements 1 Laboratory Tests Test 04/13/20 05:30 White Blood Count 7.0 K/UL (4.8-10.8) Red Blood Count 5.08 M/UL (4.20-5.40) Hemoglobin 13.6 G/DL (12.0-16.0) Hematocrit 39.7 % (37.0-47.0) Mean Corpuscular Volume 78 FL (80-99) L Mean Corpuscular Hemoglobin 26.8 PG (27.0-31.0) L Mean Corpuscular Hemoglobin Concent 34.3 G/DL (32.0-36.0) Red Cell Distribution Width 11.7 % (11.6-14.8) Platelet Count 328 K/UL (150-450) Mean Platelet Volume 5.9 FL (6.5-10.1) L Neutrophils (%) (Auto) 45.1 % (45.0-75.0) Lymphocytes (%) (Auto) 41.3 % (20.0-45.0) Monocytes (%) (Auto) 8.4 % (1.0-10.0) Eosinophils (%) (Auto) 4.0 % (0.0-3.0) H Basophils (%) (Auto) 1.2 % (0.0-2.0) Sodium Level 141 MMOL/L (136-145) Potassium Level 4.2 MMOL/L (3.5-5.1) Chloride Level 103 MMOL/L (98-107) Carbon Dioxide Level 31 MMOL/L (21-32) Anion Gap 7 mmol/L (5-15) Blood Urea Nitrogen 10 mg/dL (7-18) Creatinine 1.0 MG/DL (0.55-1.30) Estimat Glomerular Filtration Rate > 60 mL/min (>60) Glucose Level 102 MG/DL (74-106) Calcium Level 9.5 MG/DL (8.5-10.1) Phosphorus Level 4.2 MG/DL (2.5-4.9) Magnesium Level 1.9 MG/DL (1.8-2.4) Total Bilirubin 0.4 MG/DL (0.2-1.0) Aspartate Amino Transf (AST/SGOT) 15 U/L (15-37) Alanine Aminotransferase (ALT/SGPT) 27 U/L (12-78) Alkaline Phosphatase 66 U/L (46-116) Total Protein 8.2 G/DL (6.4-8.2) Albumin 3.2 G/DL (3.4-5.0) L Globulin 5.0 g/dL Albumin/Globulin Ratio 0.6 (1.0-2.7) L Height (Feet): 5 Height (Inches): 7.00 Weight (Pounds): 300 Medications Current Medications Medications (Trade) Dose Ordered Sig/Yoan Route PRN Reason Start Time Stop Time Status Last Admin Dose Admin Acetaminophen (Tylenol) 650 mg Q4H PRN ORAL Temp >100.5/Mild pain 1-3 04/12/20 13:15 05/12/20 13:14 04/13/20 08:52 Amlodipine Besylate (Norvasc) 10 mg DAILY ORAL 04/13/20 09:00 05/13/20 08:59 04/13/20 08:53 Aspirin (Ecotrin) 81 mg DAILY ORAL 04/13/20 09:00 05/28/20 08:59 04/13/20 08:50 Atorvastatin Calcium (Lipitor) 10 mg BEDTIME ORAL 04/12/20 21:00 07/11/20 20:59 04/12/20 21:09 Latanoprost (Xalatan) 1 drop BEDTIME BOTH EYES 04/12/20 21:00 05/12/20 20:59 04/12/20 21:09 Lisinopril (ZestriL) 10 mg DAILY ORAL 04/13/20 09:00 05/13/20 08:59 04/13/20 08:53 Meloxicam (Mobic) 15 mg DAILY ORAL 04/13/20 09:00 05/13/20 08:59 04/13/20 08:53 Morphine Sulfate (Morphine Sulfate) 1 mg Q4H PRN IVP For Pain 4-10 04/12/20 13:15 04/19/20 13:14 Ondansetron HCl (Zofran) 4 mg Q6H PRN IVP Nausea & Vomiting 04/12/20 13:15 05/12/20 13:14 Timolol Maleate (timoloL maleate 0.25% Op Soln) 1 drop TWICE A DAY BOTH EYES 04/12/20 18:00 05/12/20 17:59 04/13/20 08:54 Vancomycin HCl (Vanco rx to dose) 1 ea DAILY PRN MISC Per rx protocol 04/12/20 13:15 05/12/20 13:14 Vancomycin HCl 1 gm/Dextrose 275 ml @ 183.708 mls/hr Q12H IVPB 04/12/20 22:00 04/17/20 21:59 04/13/20 09:51 Assessment/Plan Problem List: (1) Edema ICD Codes: R60.9 - Edema, unspecified SNOMED: 231528210, 550874346 (2) Abscess of right breast ICD Codes: N61.1 - Abscess of the breast and nipple SNOMED: 66383383 (3) Cellulitis of right breast Assessment & Plan: Right breast cellulitis improving with IV antibiotics. Initial examination on prior admission concerning for phlegmon possible abscess formation currently cellulitis improving phlegmon decreased no fluctuance identified does not seem new forming abscess did prior have abscess that was drained at [place] [facility] now improving Recommend continue IV antibiotics until cellulitis slightly improved more and then transition to oral antibiotics for discharge Okay for diet We will follow with examination and recommendations thank you for let me participate in patient's care ICD Codes: N61.0 - Mastitis without abscess SNOMED: [id number] Eleno Giang April 13, 2020 14:34
[2020-04-13 16:00] VITALS: BP 147/74
--- NOTE | 2020-04-13 19:13 | NUR ---
HAND-OFF: Report given to JACOBY Mcarthur.
--- NOTE | 2020-04-13 19:27 | NUR ---
NURSE NOTES: RECEIVED PATIENT FROM JACOBY ALFORD. PATIENT IS AWAKE, AAOX4, ON ROOM AIR, DENIES PAIN, NO ACUTE DISTRESS NOTED. NO IV ACCESS, D/C PER PATIENT. WILL INSERT NEW IV. ERYTHEMA AND SWELLING NOTED ON RIGHT BREAST. PATIENT IS ABLE TO AMBULATE, STEADY GAIT. BED IS LOCKED AND LOW, BED ALARMS ACTIVE, SIDE RAILS UPX2, AND CALL LIGHT IS WITHIN REACH. WILL CONTINUE TO MONITOR.
[2020-04-13 20:00] VITALS: BP 147/98
[2020-04-13] MEDS: Latanoprost 0.005% Opth 2.5ml Soln BOTH EYES SCH (22:38)
[2020-04-13] MEDS ORDERED: Vancomycin 1.25gm/NS Premix IVPB SCH (23:00)
[2020-04-14] VITALS: BP 142/76
--- NOTE | 2020-04-14 02:04 | NUR ---
NURSE NOTES: PIV D/C PER PATIENT. REFUSED FOR RN TO REINSERT IV. RN REINFORCED TEACHING THE IMPORTANCE TO HAVING PIV ACCESS FOR EMERGENCY EVENTS, WELL FOR IV ANTIBIOTICS. GREENHOUSE TECHNICIAN ALSO SPOKE TO PATIENT. PATIENT STILL REFUSED. PATIENT INSISTED TO HAVE RN AND GREENHOUSE TECHNICIAN LEAVE HER ROOM AND "NOT TO COME BACK".
[2020-04-14 06:30] LABS: HEMATOCRIT 40.3 % (37.0-47.0); HEMOGLOBIN 13.5 G/DL (12.0-16.0); MEAN CORPUSCULAR VOLUME 78 FL (80-99); PLATELET COUNT 371 K/UL (150-450); RED BLOOD COUNT 5.17 M/UL (4.20-5.40); RED CELL DISTRIBUTION WIDTH 11.9 % (11.6-14.8); WHITE BLOOD COUNT 6.2 K/UL (4.8-10.8)
--- NOTE | 2020-04-14 06:50 | NUR ---
NURSE NOTES: REINSERTED IV ON RIGHT WRIST 24G.
[2020-04-14 07:02] LABS: ALANINE AMINOTRANSFERASE 28 U/L (12-78); ALBUMIN 3.1 G/DL (3.4-5.0); ALBUMIN/GLOBULIN RATIO 0.6 (1.0-2.7); ALKALINE PHOSPHATASE 62 U/L (46-116); ANION GAP 9 mmol/L (5-15); ASPARTATE AMINO TRANSFERASE 20 U/L (15-37); BILIRUBIN,TOTAL 0.3 MG/DL (0.2-1.0); BLOOD UREA NITROGEN 10 mg/dL (7-18); CALCIUM 9.5 MG/DL (8.5-10.1); CARBON DIOXIDE 28 MMOL/L (21-32); CHLORIDE 103 MMOL/L (98-107); CREATININE 0.8 MG/DL (0.55-1.30); PHOSPHORUS 4.6 MG/DL (2.5-4.9); POTASSIUM 4.4 MMOL/L (3.5-5.1); SODIUM 140 MMOL/L (136-145)
--- NOTE | 2020-04-14 07:08 | NUR ---
HAND-OFF: Report given to JACOBY Brown.
--- NOTE | 2020-04-14 07:28 | NUR ---
NURSE NOTES: Patient awake, alert x4; on room air, no sing of distress and shortness of breath; no sing of chest pain;IV Right-Wrist, Vanco running; side rails up x2, breaks engaged, bed at lowest position, call light within reach; patient is eating breakfast; patient gave RN more foods order; RN placed the order to dietary; waiting for food; will keep monitoring.
[2020-04-14 08:00] VITALS: BP 142/80
[2020-04-14] MEDS: TIMOLOL MALEATE 0.25% BOTH EYES SCH (08:41)
[2020-04-14] MEDS: Aspirin EC 81mg tab ORAL SCH (08:41)
[2020-04-14 08:42] VITALS: BP 142/80
[2020-04-14] MEDS: Meloxicam 15 MG TAB ORAL SCH (08:42)
[2020-04-14] MEDS: Lisinopril 10mg tab ORAL SCH (08:42)
--- NOTE | 2020-04-14 10:01 | NUR ---
NURSE NOTES: Patient wanna be discharge today; MD Giang cleared patient for discharge with oral antibiotics; I called MD Gore and left a message regarding this matter; waiting call back.
--- NOTE | 2020-04-14 11:08 | NUR ---
NURSE NOTES: PT WANTS TO LEAVE [facility], PAGED AND RECEIVED A CALL BACK FROM DR MICHELLE TUBBS , PER JUST PUT THE PREFERRED PHARMACY IN THE COMPUTER AND PT CAN LEAVE Addendum: 04/14/20 at 1113 by ANDI ARTHUR RN [facility] [phone]
--- NOTE | 2020-04-14 11:10 | NUR ---
NURSE NOTES: MD Morales came to the floor doing rounds; I communicated MD Morales that patient wanna be discharge today; MD Morales said get the preferred pharmacy of patient and will discharge patient this afternoon; patient insisted to leave at this time; Charge nurse Arias communicated MD Morales regarding the matter; patient refused to sign AMA and also doesn't wanna waiting the discharge from MD Morales. IV access removed; patient signed belonging lists and also patient given back her own medication which was kept at the pharmacy during her stay here in the hospital.
--- NOTE | 2020-04-14 11:20 | NUR ---
NURSE NOTES: PT REFUSED MULTIPLE TIMES TO WAIT FOR DC ORDER AND DC INSTRUCTIONS FROM PRIMARY RN , REFUSED TO SIGN AMA
--- NOTE | 2020-04-14 11:24 | Surgery Progress Note ---
Surgery Progress Note Subjective Symptoms: improved, tolerating diet, voiding well, passing flatus, pain decreased Objective Last 24 Hour Vital Signs Date Time Temp Pulse Resp B/P (MAP) Pulse Ox O2 Delivery O2 Flow Rate FiO2 04/14/20 09:00 Room Air 04/14/20 08:42 142/80 04/14/20 08:42 73 142/80 04/14/20 08:00 97.0 73 19 142/80 (100) 94 04/14/20 00:00 97.7 54 18 142/76 (98) 97 04/13/20 21:00 Room Air 04/13/20 20:00 97.0 70 16 147/98 (114) 96 04/13/20 16:00 97.0 71 18 147/74 (98) 98 04/13/20 12:00 96.6 61 20 154/103 (120) 98 I&O Intake and Output 04/13/20 04/14/20 19:00 07:00 Intake Total 767.416 ml 366.666 ml Balance 767.416 ml 366.666 ml Intake Oral 400 ml IV Total 367.416 ml 366.666 ml # Voids 2 1 # Bowel Movements 1 Dressing: dry Wound: clean, dry Cardiovascular: RSR Respiratory: clear Abdomen: soft, non-tender, present bowel sounds Extremities: no edema, no tenderness, no cyanosis Laboratory Tests Test 04/13/20 21:01 04/14/20 06:00 Vancomycin Level Trough 8.9 ug/mL (5.0-12.0) White Blood Count 6.2 K/UL (4.8-10.8) Red Blood Count 5.17 M/UL (4.20-5.40) Hemoglobin 13.5 G/DL (12.0-16.0) Hematocrit 40.3 % (37.0-47.0) Mean Corpuscular Volume 78 FL (80-99) L Mean Corpuscular Hemoglobin 26.2 PG (27.0-31.0) L Mean Corpuscular Hemoglobin Concent 33.6 G/DL (32.0-36.0) Red Cell Distribution Width 11.9 % (11.6-14.8) Platelet Count 371 K/UL (150-450) Mean Platelet Volume 6.6 FL (6.5-10.1) Neutrophils (%) (Auto) % (45.0-75.0) Lymphocytes (%) (Auto) % (20.0-45.0) Monocytes (%) (Auto) % (1.0-10.0) Eosinophils (%) (Auto) % (0.0-3.0) Basophils (%) (Auto) % (0.0-2.0) Differential Total Cells Counted 100 Neutrophils % (Manual) 30 % (45-75) L Lymphocytes % (Manual) 58 % (20-45) H Monocytes % (Manual) 7 % (1-10) Eosinophils % (Manual) 5 % (0-3) H Basophils % (Manual) 0 % (0-2) Band Neutrophils 0 % (0-8) Platelet Estimate Adequate Platelet Morphology Normal Microcytosis 1+ Sodium Level 140 MMOL/L (136-145) Potassium Level 4.4 MMOL/L (3.5-5.1) Chloride Level 103 MMOL/L (98-107) Carbon Dioxide Level 28 MMOL/L (21-32) Anion Gap 9 mmol/L (5-15) Blood Urea Nitrogen 10 mg/dL (7-18) Creatinine 0.8 MG/DL (0.55-1.30) Estimat Glomerular Filtration Rate > 60 mL/min (>60) Glucose Level 111 MG/DL (74-106) H Calcium Level 9.5 MG/DL (8.5-10.1) Phosphorus Level 4.6 MG/DL (2.5-4.9) Magnesium Level 1.8 MG/DL (1.8-2.4) Total Bilirubin 0.3 MG/DL (0.2-1.0) Aspartate Amino Transf (AST/SGOT) 20 U/L (15-37) Alanine Aminotransferase (ALT/SGPT) 28 U/L (12-78) Alkaline Phosphatase 62 U/L (46-116) Total Protein 8.0 G/DL (6.4-8.2) Albumin 3.1 G/DL (3.4-5.0) L Globulin 4.9 g/dL Albumin/Globulin Ratio 0.6 (1.0-2.7) L Plan Problems: (1) Edema (2) Abscess of right breast (3) Cellulitis of right breast Assessment & Plan: Right breast cellulitis improving with IV antibiotics. Initial examination on prior admission concerning for phlegmon possible abscess formation currently cellulitis improving phlegmon decreased no fluctuance identified does not seem new forming abscess did prior have abscess that was drained at [place] [facility] now improving Recommend continue IV antibiotics until cellulitis slightly improved more and then transition to oral antibiotics for discharge Okay for diet We will follow with examination and recommendations thank you for let me participate in patient's care improved no n/v/f/c comfortable cellulitis improved d/c plan on oral abx I do long discussion with the patient regards her findings care care plan. Patient cellulitis significantly improved on IV antibiotics and cannot be discharged safely on oral antibiotics. Patient instructed to return if worsening condition. No fluctuance identified. No abscess currently for drainage. Cellulitis improving. I explained to the patient that once cellulitis is improved recommend repeat mammogram if she is due for 1. Furthermore I expressed to her the necessity of establishing primary care physician for further follow-up and evaluation within her network to ensure resolution of the cellulitis. Patient expressed she will follow-up with her primary care physician and a surgeon outpatient in her network if necessary. Thank you thank you Eleno Giang April 14, 2020 11:24
--- NOTE | 2020-04-14 18:51 | Discharge Summary ---
Discharge Summary Hospital Course Date of Admission April 12, 2020 at 11:33 Date of Discharge April 14, 2020 at 11:22 Admitting Diagnosis breast abscess HPI Araceli Craig is a 59 year old female who was admitted on April 12, 2020 at 11:33 for Breast Abscess. She was given IV AB and monitored for a few days. This is an ongoing issue for patient. Hospital Course Assessment #Breast Abscess; appreciate surgery, patient w/ hx of I&D from similar issues, states last mammogram a couple years ago, Breast US noted #HTN #HLD Plan Await surgery recs, anticipate conservative management Vancomycin IV empirically Resume home meds , norvasc and atorvastatin Pain control, supportive measures DVT ppx Diet 04/14: Patient was cleared for discharged, but then left the hospital before scripts transmitted. Will attempt to call into pharmacy Discharge Discharge Vital Signs Last Vital Signs Date Time Temp Pulse Resp B/P (MAP) Pulse Ox O2 Delivery O2 Flow Rate FiO2 04/14/20 09:00 Room Air 04/14/20 08:42 142/80 04/14/20 08:42 73 04/14/20 08:00 97.0 19 94 Discharge Disposition Patient was discharged to Brenda Morales D.O. April 14, 2020 18:51
--- NOTE | 2020-04-15 16:36 | NUR ---
*-* INSURANCE*-* ALL CLINICALS HAVE BEEN FAXED TO: [employer] REF# [id number] F: [phone] Addendum: 04/16/20 at 1529 by CISCO MARTE CM *-* RE-FAXED FAX MACHINE HAS FAX CUED BUT DID NOT FAX IT DEPARTMENT CANCELLED ALL FAXES REFAXED 04/16
--- NOTE | 2020-04-16 15:27 | NUR ---
*-* INSURANCE*-* ALL CLINICALS HAVE BEEN FAXED TO: [employer] REF# [id number] F: [phone] *-* CLINICALS HAD TO BE RE-FAXED: FAX MACHINE HAD FAXED CUED BUT DID NOT SEND IT DEPARTMENT CANCELLED ALL FAXES RE-FAXED 04/16 *-*
== END 2020-04-14 11:22 | disposition left against medical advice (07) | DRG 385 ==
LOC: EMR 10:45 → 4E 11:33 → EDBEDREQ 11:54
DX: N61.1 Abscess of the breast and nipple (principal); I10 Essential (primary) hypertension; E78.5 Hyperlipidemia, unspecified; N61.0 Mastitis without abscess
CPT/HCPCS: 36415; 80053; 80202; 80307; 81003; 83605; 83735; 84100; 85007; 85025; 87040; 96365; 99285

== ENCOUNTER 2020-09-17 11:37 | Emergency (ER) | payer MEDICAID ==
[~2020-09-17] VITALS: Ht 170.2 cm; Wt 140.6 kg
[2020-09-17 11:55] VITALS: BP 195/99
[2020-09-17 12:44] LABS: BASOPHILS % (AUTO) 1.4 % (0.0-2.0); EOSINOPHILS % (AUTO) 1.5 % (0.0-3.0); HEMATOCRIT 44.4 % (37.0-47.0); HEMOGLOBIN 14.5 G/DL (12.0-16.0); MEAN CORPUSCULAR VOLUME 81 FL (80-99); PLATELET COUNT 326 K/UL (150-450); RED BLOOD COUNT 5.47 M/UL (4.20-5.40); RED CELL DISTRIBUTION WIDTH 14.2 % (11.6-14.8); WHITE BLOOD COUNT 7.7 K/UL (4.8-10.8)
[2020-09-17 12:49] LABS: ANION GAP 9 mmol/L (5-15); BLOOD UREA NITROGEN 12 mg/dL (7-18); CALCIUM 9.3 MG/DL (8.5-10.1); CARBON DIOXIDE 29 MMOL/L (21-32); CHLORIDE 100 MMOL/L (98-107); CREATININE 0.9 MG/DL (0.55-1.30); POTASSIUM 3.9 MMOL/L (3.5-5.1); SODIUM 138 MMOL/L (136-145)
[2020-09-17 12:54] LABS: ALANINE AMINOTRANSFERASE 23 U/L (12-78); ALBUMIN 3.6 G/DL (3.4-5.0); ALBUMIN/GLOBULIN RATIO 0.7 (1.0-2.7); ALKALINE PHOSPHATASE 78 U/L (46-116); ASPARTATE AMINO TRANSFERASE 13 U/L (15-37); BILIRUBIN,TOTAL 0.3 MG/DL (0.2-1.0)
[2020-09-17 13:31] VITALS: BP 186/96
--- NOTE | 2020-09-17 14:57 | Emergency Room Report ---
History of Present Illness General Chief Complaint: Hypertension Source: Patient Present Illness HPI 59-year-old female presents to ED for evaluation. States she checked her blood pressure today and it was high. States systolic was greater than 200. Denies chest pain or shortness of breath. States she felt somewhat lightheaded at the time. States she takes 2 BP meds and she is compliant with the medications. States that she normally does not check her blood pressure on a regular basis. Denies alcohol or drug use. No other aggravating relieving factors. 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 Patient History Past Medical History: HTN Past Surgical History: none Pertinent Family History: none Social History: Denies: smoking, alcohol use, drug use Now: No Immunizations: UTD Reviewed Nursing Documentation: PMH: Agreed; PSxH: Agreed Nursing Documentation-PMH Hx Cardiac Problems: Yes Hx Hypertension: Yes - high cholesterol Hx Cancer: No Hx Gastrointestinal Problems: No Hx Neurological Problems: No Review of Systems All Other Systems: negative except mentioned in HPI Physical Exam Vital Signs Date Time Temp Pulse Resp B/P (MAP) Pulse Ox O2 Delivery O2 Flow Rate FiO2 09/17/20 11:45 97.9 76 20 195/99 (131) 95 Room Air Sp02 EP Interpretation: reviewed, normal General Appearance: no apparent distress, alert, GCS 15, non-toxic, obese Head: normocephalic, atraumatic Eyes: bilateral eye normal inspection, bilateral eye PERRL ENT: hearing grossly normal, normal pharynx, no angioedema, normal voice Neck: full range of motion, supple/symm/no masses Respiratory: chest non-tender, lungs clear, normal breath sounds, speaking full sentences Cardiovascular #1: regular rate, rhythm, no edema Cardiovascular #2: 2+ carotid (R), 2+ carotid (L), 2+ radial (R), 2+ radial (L), 2+ dorsalis pedis (R), 2+ dorsalis pedis (L) Gastrointestinal: normal bowel sounds, non tender, soft, non-distended, no guarding, no rebound Rectal: deferred Genitourinary: normal inspection, no CVA tenderness Musculoskeletal: back normal, normal range of motion, gait/station normal, non- tender Neurologic: alert, motor strength/tone normal, oriented x3, sensory intact, responsive, speech normal Psychiatric: judgement/insight normal, memory normal, mood/affect normal, no suicidal/homicidal ideation Reflexes: 3+ bicep (R), 3+ bicep (L), 3+ tricep (R), 3+ tricep (L), 3+ knee (R), 3+ knee (L) Lymphatic: no adenopathy Procedures Critical Care Time Critical Care Time i. I feel this is a highly complex case requiring extensive working including EKG/Rhythm strip, Xray/CT/US, Blood/urine lab work, repeat exams while in ED, and administration of strong opiates/narcotics for pain control, admission to hospital or close patient follow up. Total time: 30 min bedside evaluation and treatment excludes procedures (EKG). Reason for critical care: Elevated hypertension Possible complications: hypotension, hypertension, CO, shock, arrhythmias, metabolic acidosis, end organ damage, respiratory failure. Interventions: Labs, EKG, chest x-ray, cardiac monitoring, clonidine, reassessment of vitals Course: Patient presenting for elevated BP. Labs unremarkable. EKG normal sinus rhythm. No focal deficits. Given clonidine with BP improved Consultations: nursing staff, EMS, family Performed by: Dr Peña Tolerated well condition = improved j. because of unstable vital signs this patient had a condition that could potentially threaten life or limb. I feel this is a critical patient who required my full attention while patient was considered critical. Total Critical Care Time excluding procedures was greater than 35 minutes Medical Decision Making Diagnostic Impression: Primary Impression: Hypertension Qualified Codes: I10 - Essential (primary) hypertension ER Course Hospital Course 59-year-old female presents ED complaining of elevated BP, c/o dizziness Differential diagnoses include: hypertensive urgency, hypertensive emergency, arrythmia, CO/ACS Clinical course Patient placed on stretcher. After initial history and physical I ordered labs, EKG, chest x-ray. labs reviewed- all electrolytes normal, troponins negative, no leukocytosis, hemoglobin/hematocrit stable EKG - NSR no acute ischemic changes interpreted by me Chest x-ray-no cardiomegaly, no rib fracture, no pneumothorax, no acute process patient has no focal deficits. No signs of endorgan damage. Discussed findings with patient. We gave clonidine in ED. States she has received this medication in the past. Safe for discharge with close outpatient follow-up. States she has a PMD I. I feel this is a highly complex case requiring extensive working including EKG/Rhythm strip, Xray/CT/US, Blood/urine lab work, repeat exams while in ED, and administration of strong opiates/narcotics for pain control, admission to hospital or close patient follow up. Diagnosis - hypertension Stable and discharged to home. Instructed to followup with PMD. Return to ED if symptoms recur or worsen Labs Test 09/17/20 12:20 White Blood Count 7.7 K/UL (4.8-10.8) Red Blood Count 5.47 M/UL (4.20-5.40) Hemoglobin 14.5 G/DL (12.0-16.0) Hematocrit 44.4 % (37.0-47.0) Mean Corpuscular Volume 81 FL (80-99) Mean Corpuscular Hemoglobin 26.6 PG (27.0-31.0) Mean Corpuscular Hemoglobin Concent 32.7 G/DL (32.0-36.0) Red Cell Distribution Width 14.2 % (11.6-14.8) Platelet Count 326 K/UL (150-450) Mean Platelet Volume 7.7 FL (6.5-10.1) Neutrophils (%) (Auto) 48.0 % (45.0-75.0) Lymphocytes (%) (Auto) 42.0 % (20.0-45.0) Monocytes (%) (Auto) 7.0 % (1.0-10.0) Eosinophils (%) (Auto) 1.5 % (0.0-3.0) Basophils (%) (Auto) 1.4 % (0.0-2.0) Sodium Level 138 MMOL/L (136-145) Potassium Level 3.9 MMOL/L (3.5-5.1) Chloride Level 100 MMOL/L (98-107) Carbon Dioxide Level 29 MMOL/L (21-32) Anion Gap 9 mmol/L (5-15) Blood Urea Nitrogen 12 mg/dL (7-18) Creatinine 0.9 MG/DL (0.55-1.30) Estimat Glomerular Filtration Rate > 60 mL/min (>60) Glucose Level 106 MG/DL (74-106) Calcium Level 9.3 MG/DL (8.5-10.1) Total Bilirubin 0.3 MG/DL (0.2-1.0) Aspartate Amino Transf (AST/SGOT) 13 U/L (15-37) Alanine Aminotransferase (ALT/SGPT) 23 U/L (12-78) Alkaline Phosphatase 78 U/L (46-116) Troponin I 0.000 ng/mL (0.000-0.056) Total Protein 8.5 G/DL (6.4-8.2) Albumin 3.6 G/DL (3.4-5.0) Globulin 4.9 g/dL Albumin/Globulin Ratio 0.7 (1.0-2.7) EKG Diagnostic Results Troponin ordered: Yes Rate: bradycardiac Rhythm: NSR ST Segments: no acute changes ASA given to the pt in ED: No Rhythm Strip Diag. Results EP Interpretation: yes Rhythm: NSR, no PVC's, no ectopy Chest X-Ray Diagnostic Results Chest X-Ray Diagnostic Results : Chest X-Ray Ordered: Yes # of Views/Limited/Complete: 1 View Indication: Other EP Interpretation: Yes Interpretation: no consolidation, no effusion, no pneumothorax, no acute cardiopulmonary disease Impression: No acute disease Electronically Signed by: Electronically signed by Pedro Peña MD Last Vital Signs Date Time Temp Pulse Resp B/P (MAP) Pulse Ox O2 Delivery O2 Flow Rate FiO2 09/17/20 13:31 97.9 20 186/96 95 Room Air 09/17/20 11:55 76 Status: improved Disposition: HOME, SELF-CARE Condition: Stable Referrals: [facility] (PCP) Patient Instructions: Hypertension, [id number] Additional Instructions: keep a record of your blood pressure daily. followup with your PMD if your blood pressure remains consistently elevated Pedro Peña MD Sep 17, 2020 14:57
--- NOTE | 2020-09-17 15:49 | Diagnostic Imaging Report ---
Indication: Chest pain Technique: One view of the chest Comparison: 04/11/2020 Findings: Lungs and pleural spaces are clear. Heart size is normal. No significant change Impression: No acute process
== END 2020-09-17 13:32 | disposition home or self-care (01) ==
LOC: EMR 12:20 → CANBEDREQ 13:09 → EMR 13:32
DX: I10 Essential (primary) hypertension (principal); R00.1 Bradycardia, unspecified; E78.00 Pure hypercholesterolemia, unspecified; R07.9 Chest pain, unspecified
CPT/HCPCS: 36415; 71045; 80053; 84484; 85025; 93005; 96360; J7030; Z7502; 99284

== ENCOUNTER 2020-09-29 06:45 | Emergency (ER) | payer MEDICAID ==
[~2020-09-29] VITALS: Ht 170.2 cm; Wt 136.1 kg
[2020-09-29 06:57] VITALS: BP 117/78
--- NOTE | 2020-09-29 06:58 | NUR ---
Note luis antonio in EDM - 09/29/20 at 0704 by [email or web address] Nurse Note: PT walked in c/o abscess on LT breast since few days. Pt stated abscess is warm, red, painful to touch. No drainage but noted puss.
--- NOTE | 2020-09-29 07:03 | NUR ---
Nurse Note: PT walked in c/o abscess on RT breast since few days. Pt stated abscess is warm, red, painful to touch. No drainage but noted puss.
[2020-09-29] MEDS ORDERED: AUGMENTIN 875-1 EAC1 ORAL (07:11)
[2020-09-29] MEDS ORDERED: Augmentin 875mg Tab ORAL ONE (07:15)
--- NOTE | 2020-09-29 07:22 | NUR ---
AMA: SEE AMA FORM. 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 RUIZD educated pt on risks and possible outcomes. Pt verbalized understanding. Pt is alert and orientedx4, ambulatory. AMA form completed. Pt took all belongings. No access.
--- NOTE | 2020-09-29 08:09 | Emergency Room Report ---
History of Present Illness General Chief Complaint: Skin Rash/Abscess Source: Patient Present Illness HPI 59-year-old female presents with redness pain to right breast for 2 days. States she has some cellulitis. Pain is dull, 5 out of 10, nonradiating. States she noticed some discharge. Denies fevers or chills. States she is had similar infection in the past which required surgery. No other aggravating relieving factors. Denies any other associated symptoms Allergies: Coded Allergies: No Known Allergies (Unverified , 04/07/19) COVID-19 Screening Contact w/high risk pt: No Recent Travel to affected area: No Experienced COVID-19 symptoms?: No COVID-19 symptoms experienced: Fever (T>100.4F or >38C), Shortness of Breath, Cough COVID-19 Testing performed FUR DESIGNER: No Patient History Past Medical History: CAD Past Surgical History: none Pertinent Family History: none Social History: Denies: smoking, alcohol use, drug use Now: No Immunizations: UTD Reviewed Nursing Documentation: PMH: Agreed; PSxH: Agreed Nursing Documentation-PMH Hx Cardiac Problems: Yes Hx Hypertension: Yes - high cholesterol Hx Cancer: No Hx Gastrointestinal Problems: No 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 Review of Systems All Other Systems: negative except mentioned in HPI Physical Exam Vital Signs Date Time Temp Pulse Resp B/P (MAP) Pulse Ox O2 Delivery O2 Flow Rate FiO2 09/29/20 06:50 98.4 83 16 117/78 (91) 98 Room Air Sp02 EP Interpretation: reviewed, normal General Appearance: no apparent distress, alert, GCS 15, non-toxic, obese Head: normocephalic, atraumatic Eyes: bilateral eye normal inspection, bilateral eye PERRL ENT: hearing grossly normal, normal pharynx, no angioedema, normal voice Neck: full range of motion, supple/symm/no masses Respiratory: chest non-tender, lungs clear, normal breath sounds, speaking full sentences Cardiovascular #1: regular rate, rhythm, no edema Cardiovascular #2: 2+ carotid (R), 2+ carotid (L), 2+ radial (R), 2+ radial (L), 2+ dorsalis pedis (R), 2+ dorsalis pedis (L) Gastrointestinal: normal bowel sounds, non tender, soft, non-distended, no guarding, no rebound Rectal: deferred Genitourinary: normal inspection, no CVA tenderness Musculoskeletal: back normal, normal range of motion, gait/station normal, non- tender Neurologic: alert, motor strength/tone normal, oriented x3, sensory intact, responsive, speech normal Psychiatric: judgement/insight normal, memory normal, mood/affect normal, no suicidal/homicidal ideation Reflexes: 3+ bicep (R), 3+ bicep (L), 3+ tricep (R), 3+ tricep (L), 3+ knee (R), 3+ knee (L) Skin: other - 5 x 3 cm area of induration and erythema to right breast. Discharge noted Lymphatic: no adenopathy Medical Decision Making Diagnostic Impression: Primary Impression: Cellulitis of right breast ER Course Hospital Course 59-year-old female presents to ED with redness, swelling to right breast Differential diagnoses include: Cellulitis, dermatitis, insect bite, abscess Clinical course Patient placed on stretcher. After initial history, physical exam reveals a female in no acute distress. On exam there is fluctuance/erythema to the right breast. There is discharge noted. Afebrile, nontoxic-appearing. I discussed findings with Dr. Giang and this presents similar to previous instance where patient required IV antibiotics and operative repair. I discussed this with the patient and she states she cannot stay in the hospital today. Patient states she wishes to go home. Understands the risks of leaving. Patient has competency to make her own decisions. Signed AMA form. States she will return tomorrow. Given Augmentin in ED. I will prescribe Augmentin. Diagnosis -cellulitis of right breast Patient left AMA Last Vital Signs Date Time Temp Pulse Resp B/P (MAP) Pulse Ox O2 Delivery O2 Flow Rate FiO2 09/29/20 06:57 98.4 83 16 117/78 98 Room Air Status: unchanged Disposition: AGAINST MEDICAL ADVICE Condition: Stable Scripts Amoxicillin/Potassium Clav 875-125* (AUGMENTIN 875-125 TABLET*) 1 Each Tablet 1 TAB ORAL TWICE A DAY, #14 TAB Prov: Pedro Peña MD 09/29/20 Referrals: [facility] (PCP) Patient Instructions: Abscess Pedro Peña MD Sep 29, 2020 08:09
[2020-09-30] MEDS ORDERED: HYDROCHLOROTH12.5 MG ORAL (08:05)
[2020-09-30] MEDS ORDERED: HYDROCHLOROTHIA50 MG ORAL (08:05)
[2020-09-30] MEDS ORDERED: LOSARTAN POTASS25 MG ORAL (08:05)
[2020-09-30] MEDS ORDERED: PAXIL20 MG ORAL (08:05)
== END 2020-09-29 07:22 | disposition left against medical advice (07) ==
LOC: EMR 07:10
DX: N61.0 Mastitis without abscess (principal); I25.10 Atherosclerotic heart disease of native coronary artery without angina pectoris; I10 Essential (primary) hypertension; E78.00 Pure hypercholesterolemia, unspecified
CPT/HCPCS: 99282

== ENCOUNTER 2020-09-30 07:45 | Inpatient (IN) | payer MEDICAID ==
[~2020-09-30] VITALS: Ht 170.2 cm; Wt 136.1 kg
[~2020-09-30 07:45] MED LIST changes: +AUGMENTIN 875-1 EAC1 ORAL
[2020-09-30 08:03] VITALS: BP 165/76
[2020-09-30] MEDS ORDERED: HYDROCHLOROTHIA50 MG ORAL (08:05)
[2020-09-30] MEDS ORDERED: LOSARTAN POTASS25 MG ORAL (08:05)
[2020-09-30] MEDS ORDERED: PAXIL20 MG ORAL (08:05)
[2020-09-30] MEDS ORDERED: HYDROCHLOROTH12.5 MG ORAL (08:05)
--- NOTE | 2020-09-30 08:05 | NUR ---
ED Nurse Note: Pt ambulated to ED from home d/t R breast abscess that has been going on for 2-3 days. Per pt, she had a recent surgery with dr ross on the same breast d/t to an abscess then another abscess showed up after a few days. Pt is AOx4, calm and cooperative to care, VSS, on RA, afebrile on triage.
[2020-09-30 08:43] LABS: APPEARANCE,URINE CLEAR; BILIRUBIN, URINE NEGATIVE (NEGATIVE); COLOR,URINE PALE YELLOW; GLUCOSE, URINE (UA) NEGATIVE (NEGATIVE); KETONES,URINE NEGATIVE (NEGATIVE); LEUKOCYTE ESTERASE ,URINE NEGATIVE (NEGATIVE); NITRITE,URINE NEGATIVE (NEGATIVE); PH,URINE 6.5 (4.5-8.0); PROTEIN,URINE NEGATIVE (NEGATIVE); UROBILINOGEN,URINE NORMAL MG/DL (0.0-1.0)
[2020-09-30 08:47] LABS: BASOPHILS % (AUTO) 1.5 % (0.0-2.0); EOSINOPHILS % (AUTO) 3.2 % (0.0-3.0); HEMATOCRIT 47.7 % (37.0-47.0); HEMOGLOBIN 15.3 G/DL (12.0-16.0); LYMPHOCYTES % (AUTO) 39.8 % (20.0-45.0); MEAN CORPUSCULAR VOLUME 84 FL (80-99); MONOCYTES % (AUTO) 9.5 % (1.0-10.0); PLATELET COUNT 285 K/UL (150-450); WHITE BLOOD COUNT 5.1 K/UL (4.8-10.8)
[2020-09-30 08:54] LABS: ANION GAP 9 mmol/L (5-15); BLOOD UREA NITROGEN 16 mg/dL (7-18); CALCIUM 9.4 MG/DL (8.5-10.1); CARBON DIOXIDE 25 MMOL/L (21-32); CHLORIDE 100 MMOL/L (98-107); CREATININE 0.9 MG/DL (0.55-1.30); SODIUM 134 MMOL/L (136-145)
[2020-09-30 08:59] LABS: ALANINE AMINOTRANSFERASE 35 U/L (12-78); ALBUMIN 3.6 G/DL (3.4-5.0); ALBUMIN/GLOBULIN RATIO 0.8 (1.0-2.7); ALKALINE PHOSPHATASE 75 U/L (46-116); ASPARTATE AMINO TRANSFERASE 21 U/L (15-37); BILIRUBIN,TOTAL 0.2 MG/DL (0.2-1.0)
[2020-09-30] MEDS ORDERED: Piperacillin/Tazobactam 3.375 GM in NS 110 ML IVPB ONE (09:30)
--- NOTE | 2020-09-30 10:20 | NUR ---
ED Nurse Note: Report given to JACOBY Roberts in Med Surg unit.
--- NOTE | 2020-09-30 10:28 | NUR ---
ED Nurse Note: Pt was transferred to med surg unit under the care of dr. capone. Pt was transferred on stable condition, all belongings was sent to pt. pt's family aware of pt mosesnsfer
--- NOTE | 2020-09-30 10:40 | NUR ---
NURSE NOTES: patient was admitted from ER placed to room 402-2 via urney under DX of right breast abscess. A&Ox4, verbally responsive. no respiratory distress noted on room air. pain on right breast only when being touched. IV on left hand patent and flushed. right breast swollen, yana, tender to touch. hx of cellulitis on right breast. no decubitus noted. peripheral pulse present all extremities. active bm sound. slightly wheezing lung sound. checked and counted belongings with patient. ambulatory steady gait. educated patient call for help. bed in the lowest position and locked. call light within reach.
--- NOTE | 2020-09-30 10:50 | NUR ---
NURSE NOTES: called office for admission orders.
--- NOTE | 2020-09-30 11:30 | NUR ---
NURSE NOTES: Dr. Giang saw the patient. I&D on the bedside. got wound cx x2 from right breast
--- NOTE | 2020-09-30 11:42 | Emergency Room Report ---
History of Present Illness General Chief Complaint: Skin Rash/Abscess Source: Patient Present Illness HPI 59-year-old female presents for cellulitis to the right breast. Started a few days ago. States she is noticed some discharge. Was seen here yesterday by myself. Patient was to be admitted but patient could not stay and left AGAINST MEDICAL ADVICE. Patient came back today stating that she is now able to be admitted. Patient had this similar infection previously and required IV antibiotics and surgical repair. Denies fevers or chills. Denies pain. No other aggravating relieving factors. 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 Patient History Past Medical History: HTN Past Surgical History: other - Right breast surgery Pertinent Family History: none Social History: Denies: smoking, alcohol use, drug use Last Menstrual Period: na Now: No Immunizations: UTD Reviewed Nursing Documentation: PMH: Agreed; PSxH: Agreed Nursing Documentation-PMH Past Medical History: No History, Except For Hx Cardiac Problems: Yes - right breast surgery D/T cellulitis Hx Hypertension: Yes - high cholesterol Hx Cancer: No Hx Gastrointestinal Problems: No 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 Review of Systems All Other Systems: negative except mentioned in HPI Physical Exam Vital Signs Date Time Temp Pulse Resp B/P (MAP) Pulse Ox O2 Delivery O2 Flow Rate FiO2 09/30/20 07:53 98.2 79 20 165/76 (105) 94 Room Air Sp02 EP Interpretation: reviewed, normal General Appearance: no apparent distress, alert, GCS 15, non-toxic Head: normocephalic, atraumatic Eyes: bilateral eye normal inspection, bilateral eye PERRL ENT: hearing grossly normal, normal pharynx, no angioedema, normal voice Neck: full range of motion, supple/symm/no masses Respiratory: chest non-tender, lungs clear, normal breath sounds, speaking full sentences Cardiovascular #1: regular rate, rhythm, no edema Cardiovascular #2: 2+ carotid (R), 2+ carotid (L), 2+ radial (R), 2+ radial (L), 2+ dorsalis pedis (R), 2+ dorsalis pedis (L) Gastrointestinal: normal bowel sounds, non tender, soft, non-distended, no guarding, no rebound Rectal: deferred Genitourinary: normal inspection, no CVA tenderness Musculoskeletal: back normal, normal range of motion, gait/station normal, non- tender Neurologic: alert, motor strength/tone normal, oriented x3, sensory intact, responsive, speech normal Psychiatric: judgement/insight normal, memory normal, mood/affect normal, no suicidal/homicidal ideation Reflexes: 3+ bicep (R), 3+ bicep (L), 3+ tricep (R), 3+ tricep (L), 3+ knee (R), 3+ knee (L) Skin: other - Erythema and induration to right breast. Fluctuance noted Lymphatic: no adenopathy Medical Decision Making Diagnostic Impression: Primary Impression: Abscess of right breast Additional Impression: Cellulitis of right breast ER Course Hospital Course 59-year-old female presents to ED with redness, swelling to right breast Differential diagnoses include: Cellulitis, abscess, rash. Clinical course Patient placed on stretcher. After initial history and physical I ordered labs, blood Cx, chest x-ray labs reviewed - no leukocytosis, Hb/Hct stable, no electrolyte abnormalities. X-ray no acute process Surgery consulted antibiotics given. Case discussed with Dr Weber and he agreed to accept the patient to his service for further care and support Diagnosis -abscess of right breast, cellulitis of right breast Patient admitted to floor in serious condition Laboratory Tests Test 09/30/20 08:20 White Blood Count 5.1 K/UL (4.8-10.8) Red Blood Count 5.70 M/UL (4.20-5.40) H Hemoglobin 15.3 G/DL (12.0-16.0) Hematocrit 47.7 % (37.0-47.0) H Mean Corpuscular Volume 84 FL (80-99) Mean Corpuscular Hemoglobin 26.8 PG (27.0-31.0) L Mean Corpuscular Hemoglobin Concent 32.0 G/DL (32.0-36.0) Red Cell Distribution Width 14.0 % (11.6-14.8) Platelet Count 285 K/UL (150-450) Mean Platelet Volume 8.5 FL (6.5-10.1) Neutrophils (%) (Auto) 46.0 % (45.0-75.0) Lymphocytes (%) (Auto) 39.8 % (20.0-45.0) Monocytes (%) (Auto) 9.5 % (1.0-10.0) Eosinophils (%) (Auto) 3.2 % (0.0-3.0) H Basophils (%) (Auto) 1.5 % (0.0-2.0) Prothrombin Time 10.9 SEC (9.30-11.50) Prothromb Time International Ratio 1.0 (0.9-1.1) Activated Partial Thromboplast Time 26 SEC (23-33) Urine Color Pale yellow Urine Appearance Clear Urine pH 6.5 (4.5-8.0) Urine Specific [place] 1.010 (1.005-1.035) Urine Protein Negative (NEGATIVE) Urine Glucose (UA) Negative (NEGATIVE) Urine Ketones Negative (NEGATIVE) Urine Blood Negative (NEGATIVE) Urine Nitrite Negative (NEGATIVE) Urine Bilirubin Negative (NEGATIVE) Urine Urobilinogen Normal MG/DL (0.0-1.0) Urine Leukocyte Esterase Negative (NEGATIVE) Sodium Level 134 MMOL/L (136-145) L Potassium Level 4.0 MMOL/L (3.5-5.1) Chloride Level 100 MMOL/L (98-107) Carbon Dioxide Level 25 MMOL/L (21-32) Anion Gap 9 mmol/L (5-15) Blood Urea Nitrogen 16 mg/dL (7-18) Creatinine 0.9 MG/DL (0.55-1.30) Estimat Glomerular Filtration Rate > 60 mL/min (>60) Glucose Level 137 MG/DL (74-106) H Lactic Acid Level 1.70 mmol/L (0.4-2.0) Calcium Level 9.4 MG/DL (8.5-10.1) Total Bilirubin 0.2 MG/DL (0.2-1.0) Aspartate Amino Transf (AST/SGOT) 21 U/L (15-37) Alanine Aminotransferase (ALT/SGPT) 35 U/L (12-78) Alkaline Phosphatase 75 U/L (46-116) Total Protein 8.3 G/DL (6.4-8.2) H Albumin 3.6 G/DL (3.4-5.0) Globulin 4.7 g/dL Albumin/Globulin Ratio 0.8 (1.0-2.7) L Chest X-Ray Diagnostic Results Chest X-Ray Diagnostic Results : Chest X-Ray Ordered: Yes # of Views/Limited/Complete: 1 View Indication: Other - Preoperative EP Interpretation: Yes Interpretation: no consolidation, no effusion, no pneumothorax, no acute cardiopulmonary disease Impression: No acute disease Electronically Signed by: Electronically signed by Pedro Peña MD Last Vital Signs Date Time Temp Pulse Resp B/P (MAP) Pulse Ox O2 Delivery O2 Flow Rate FiO2 09/30/20 10:27 98.2 82 21 158/72 99 Room Air Status: improved Disposition: ADMITTED INPATIENT Condition: Serious Referrals: [facility] (PCP) Pedro Peña MD Sep 30, 2020 11:42
--- NOTE | 2020-09-30 11:47 | Consultation ---
History of Present Illness General Date patient seen: Sep 30, 2020 Reason for Hospitalization: Skin Rash/Abscess Present Illness HPI This is a very pleasant 59-year-old female well-known to me from prior admissions and surgery where initially presented with a breast abscess status po st I&D March 2019 with debridement and biopsy given concerns for potential inflammatory breast cancer at that time. Biopsies were negative for malignancy abscess was treated with local wound care after I&D and she is recovered well since. Occasionally presents with cellulitis or abscess in a different portion of the right breast. Presented to [facility] complaining of acutely worsening right breast abscess without drainage and a dark black spot. Given her history she was admitted for further care and management as well as IV antibiotics. Surgery called to eval and assist with care. Patient seen, patient evaluated chart reviewed. Case was discussed with the ED physician. Given her history and recommended patient be admitted for antibiotic therapy until cultures can result as she is high risk for resistant bacteria. Furthermore patient does have a primary care physician in the [place] outpatient clinic Dr. Queen where she had received a mammogram in 2019 and states that her physician told her no concerning lesions identified. Allergies: Coded Allergies: No Known Allergies (Unverified , 04/07/19) COVID-19 Screening Contact w/high risk pt: No Recent Travel to affected area: No Experienced COVID-19 symptoms?: No Medication History Scheduled Amlodipine Besylate* (Amlodipine Besylate*), 10 MG ORAL DAILY, (Reported) Amoxicillin/Potassium Clav 875-125* (Augmentin 875-125 Tablet*), 1 TAB ORAL TWICE A DAY Aspirin* (Aspir 81*), 81 MG ORAL DAILY, (Reported) Atorvastatin Calcium* (Atorvastatin Calcium*), 10 MG ORAL BEDTIME, (Reported) Bimatoprost (Lumigan), 1 DROP BOTH EYES DAILY, (Reported) Hydrochlorothiazide* (Hydrochlorothiazide*), 12.5 MG ORAL DAILY, (Reported) Hydrochlorothiazide* (Hydrochlorothiazide*), 50 MG ORAL DAILY, (Reported) Levofloxacin (Levofloxacin*), 750 MG ORAL DAILY, (Reported) Lisinopril* (Lisinopril*), 10 MG ORAL DAILY, (Reported) Losartan Potassium* (Losartan Potassium*), MG ORAL DAILY, (Reported) Meloxicam* (Mobic*), 15 MG ORAL DAILY, (Reported) Meloxicam* (Meloxicam*), 15 MG PO DAILY, (Reported) Metronidazole* (Flagyl*), 500 MG ORAL EVERY 8 HOURS, (Reported) Naproxen* (Naproxen*), 500 MG ORAL TWICE A DAY, (Reported) Naproxen* (Naprosyn*), 500 MG ORAL TWICE A DAY, (Reported) Omeprazole (Omeprazole), 20 MG ORAL DAILY, (Reported) Paroxetine Hcl* (Paxil*), 20 MG ORAL DAILY, (Reported) Timolol Maleate (Timolol Maleate), 1 DROP BOTH EYES TWICE A DAY, (Reported) Trimethoprim/Sulfamethoxazole (Bactrim Ds Tablet), 1 TAB ORAL TWICE A DAY, (Reported) Miscellaneous Medications Clotrimazole (Clotrimazole), 10 GM MC, (Reported) Patient History History Provided By: Patient, Medical Record, PMD Healthcare decision maker Resuscitation status Advanced Directive on File Past Medical/Surgical History Past Medical/Surgical History: (1) Edema (2) Hypertension (3) Abscess of right breast (4) Cellulitis of right breast Review of Systems Review of Symptoms General ROS: no weight loss or fever Psychological ROS: no depression or mood changes, no memory loss Ophthalmic ROS: no visual changes or eye irritation ENT ROS: no nasal congestion, hearing loss, dizziness Allergy and Immunology ROS: no allergic symptoms or urticaria Hematological and Lymphatic ROS: no swollen glands, unusual bleeding or bruising Endocrine ROS: no polyuria, polydipsia, weight changes, temperature intolerance Respiratory ROS: no cough, shortness of breath, or wheezing Cardiovascular ROS: no chest pain or dyspnea on exertion Gastrointestinal ROS: denies abdominal pain, bright red blood in stool. Musculoskeletal ROS: no myalgias or arthralgias Neurological ROS: no TIA or stroke symptoms Dermatological ROS: no new or changing skin lesions, rashes or pruritis Physical Exam Physical Exam General appearance: alert, cooperative, no distress, appears stated age Head: Normocephalic, without obvious abnormality, atraumatic Eyes: conjunctivae/corneas clear. PERRL, EOM's intact. Fundi benign Throat: Lips, mucosa, and tongue normal. Teeth and gums normal Neck: supple, symmetrical, trachea midline, no adenopathy, thyroid: not enlarged, symmetric, no tenderness/mass/nodules, no carotid bruit and no JVD Lungs: clear to auscultation bilaterally Heart: regular rate and rhythm, S1, S2 normal, no murmur, click, rub or gallop Abdomen: soft, non-tender. Bowel sounds normal. No masses, no organomegaly Extremities: extremities normal, atraumatic, no cyanosis or edema Pulses: 2+ and symmetric Skin: Skin right breast with 2 abscess Neurologic: Grossly normal Last 24 Hour Vital Signs Date Time Temp Pulse Resp B/P (MAP) Pulse Ox O2 Delivery O2 Flow Rate FiO2 09/30/20 10:27 98.2 82 21 158/72 99 Room Air 09/30/20 08:03 98.2 20 165/76 94 Room Air 09/30/20 07:53 98.2 79 20 165/76 (105) 94 Room Air Laboratory Tests Test 09/30/20 08:20 White Blood Count 5.1 K/UL (4.8-10.8) Red Blood Count 5.70 M/UL (4.20-5.40) H Hemoglobin 15.3 G/DL (12.0-16.0) Hematocrit 47.7 % (37.0-47.0) H Mean Corpuscular Volume 84 FL (80-99) Mean Corpuscular Hemoglobin 26.8 PG (27.0-31.0) L Mean Corpuscular Hemoglobin Concent 32.0 G/DL (32.0-36.0) Red Cell Distribution Width 14.0 % (11.6-14.8) Platelet Count 285 K/UL (150-450) Mean Platelet Volume 8.5 FL (6.5-10.1) Neutrophils (%) (Auto) 46.0 % (45.0-75.0) Lymphocytes (%) (Auto) 39.8 % (20.0-45.0) Monocytes (%) (Auto) 9.5 % (1.0-10.0) Eosinophils (%) (Auto) 3.2 % (0.0-3.0) H Basophils (%) (Auto) 1.5 % (0.0-2.0) Prothrombin Time 10.9 SEC (9.30-11.50) Prothromb Time International Ratio 1.0 (0.9-1.1) Activated Partial Thromboplast Time 26 SEC (23-33) Urine Color Pale yellow Urine Appearance Clear Urine pH 6.5 (4.5-8.0) Urine Specific [place] 1.010 (1.005-1.035) Urine Protein Negative (NEGATIVE) Urine Glucose (UA) Negative (NEGATIVE) Urine Ketones Negative (NEGATIVE) Urine Blood Negative (NEGATIVE) Urine Nitrite Negative (NEGATIVE) Urine Bilirubin Negative (NEGATIVE) Urine Urobilinogen Normal MG/DL (0.0-1.0) Urine Leukocyte Esterase Negative (NEGATIVE) Sodium Level 134 MMOL/L (136-145) L Potassium Level 4.0 MMOL/L (3.5-5.1) Chloride Level 100 MMOL/L (98-107) Carbon Dioxide Level 25 MMOL/L (21-32) Anion Gap 9 mmol/L (5-15) Blood Urea Nitrogen 16 mg/dL (7-18) Creatinine 0.9 MG/DL (0.55-1.30) Estimat Glomerular Filtration Rate > 60 mL/min (>60) Glucose Level 137 MG/DL (74-106) H Lactic Acid Level 1.70 mmol/L (0.4-2.0) Calcium Level 9.4 MG/DL (8.5-10.1) Total Bilirubin 0.2 MG/DL (0.2-1.0) Aspartate Amino Transf (AST/SGOT) 21 U/L (15-37) Alanine Aminotransferase (ALT/SGPT) 35 U/L (12-78) Alkaline Phosphatase 75 U/L (46-116) Total Protein 8.3 G/DL (6.4-8.2) H Albumin 3.6 G/DL (3.4-5.0) Globulin 4.7 g/dL Albumin/Globulin Ratio 0.8 (1.0-2.7) L Height (Feet): 5 Height (Inches): 7.00 Weight (Pounds): 300 Assessment/Plan Problem List: (1) Abscess of right breast Assessment & Plan: 59-year-old female with 2 right breast abscess identified on examination. States began a few days ago now worsening. On the right breast approximately 3:00 there is a 4 cm x 3 cm fluctuant area with a 2 mm necrotic apex. Furthermore at the 6 to 7 o'clock position there is a 2 cm x 2 cm fluctuant area as well. Both areas of erythema tender but without current drainage. Consent was obtained with the patient and with her permission the right breast was cleansed prepped and draped. Using surgical instruments both abscesses were drained. Cultures were taken. Approximately 20 cc of purulent serosanguineous fluid was evacuated. Wound was irrigated with normal saline. Packing dressings were applied. Patient taught procedure well. IV antibiotics until cultures resulted and will transition to oral for discharge Local wound care with gauze packing and dressing. I will change first dressing myself tomorrow Okay for diet Pain medication ID consult Cardiology consult to ensure right sided chest pain is non cardiac and related to breast abscess Thank you will follow recommendations ICD Codes: N61.1 - Abscess of the breast and nipple SNOMED: 71826028 (2) Cellulitis of right breast ICD Codes: N61.0 - Mastitis without abscess SNOMED: 71556597 (3) Edema ICD Codes: R60.9 - Edema, unspecified SNOMED: 534382550, 303254320 (4) Hypertension ICD Codes: I10 - Essential (primary) hypertension SNOMED: 32733122 Eleno Giang Sep 30, 2020 11:47
--- NOTE | 2020-09-30 11:54 | Operative Note - PDOC ---
Operative Note Operative Note Date of Operation/Procedure: Sep 30, 2020 Pre-op Diagnosis: Right breast abscess x2 Procedure: Incision and drainage of right breast abscess x2 Post-op Diagnosis: Right breast abscess 3 o'clock position 4 cm x 3 cm x 2 cm deep Right breast abscess 6 o'clock position 2 cm x 2 cm x 1 cm deep Surgeon: Eleno Giang MD Specimen: yes Complications: none Condition: stable Estimated Blood Loss: minimal Drains: none Implant(s) used?: No Indications for Procedure 59-year-old female with breast abscess draining. Incision and drainage indicated recommended. 2 abscesses identified on examination. Please refer to consult note. Consent obtained. Description of Procedure Patient was made comfortable the bedside. The right breast was prepped draped and sent surgical fashion. Both abscesses were identified. Using surgical instruments incision was made and the abscess was drained. Purulent serosanguineous fluid was evacuated from both and sent for microbiology. Normal saline sterile irrigation performed packing and dressings applied patient taught procedure well. Eleno Giang Sep 30, 2020 11:54
[2020-09-30] MEDS ORDERED: Milk of Magnesia 30ml Ud ORAL PRN (12:00)
[2020-09-30] MEDS ORDERED: Mylanta II UD 30ml ORAL PRN (12:00)
[2020-09-30] MEDS ORDERED: LORazepam 1mg tab ORAL PRN (12:00)
--- NOTE | 2020-09-30 12:17 | Cardiac Electrophysiology PN ---
Subjective Subjective [id number] Objective Last 24 Hour Vital Signs Date Time Temp Pulse Resp B/P (MAP) Pulse Ox O2 Delivery O2 Flow Rate FiO2 09/30/20 10:27 98.2 82 21 158/72 99 Room Air 09/30/20 08:03 98.2 20 165/76 94 Room Air 09/30/20 07:53 98.2 79 20 165/76 (105) 94 Room Air Laboratory Tests Test 09/30/20 08:20 White Blood Count 5.1 K/UL (4.8-10.8) Red Blood Count 5.70 M/UL (4.20-5.40) H Hemoglobin 15.3 G/DL (12.0-16.0) Hematocrit 47.7 % (37.0-47.0) H Mean Corpuscular Volume 84 FL (80-99) Mean Corpuscular Hemoglobin 26.8 PG (27.0-31.0) L Mean Corpuscular Hemoglobin Concent 32.0 G/DL (32.0-36.0) Red Cell Distribution Width 14.0 % (11.6-14.8) Platelet Count 285 K/UL (150-450) Mean Platelet Volume 8.5 FL (6.5-10.1) Neutrophils (%) (Auto) 46.0 % (45.0-75.0) Lymphocytes (%) (Auto) 39.8 % (20.0-45.0) Monocytes (%) (Auto) 9.5 % (1.0-10.0) Eosinophils (%) (Auto) 3.2 % (0.0-3.0) H Basophils (%) (Auto) 1.5 % (0.0-2.0) Prothrombin Time 10.9 SEC (9.30-11.50) Prothromb Time International Ratio 1.0 (0.9-1.1) Activated Partial Thromboplast Time 26 SEC (23-33) Urine Color Pale yellow Urine Appearance Clear Urine pH 6.5 (4.5-8.0) Urine Specific [place] 1.010 (1.005-1.035) Urine Protein Negative (NEGATIVE) Urine Glucose (UA) Negative (NEGATIVE) Urine Ketones Negative (NEGATIVE) Urine Blood Negative (NEGATIVE) Urine Nitrite Negative (NEGATIVE) Urine Bilirubin Negative (NEGATIVE) Urine Urobilinogen Normal MG/DL (0.0-1.0) Urine Leukocyte Esterase Negative (NEGATIVE) Sodium Level 134 MMOL/L (136-145) L Potassium Level 4.0 MMOL/L (3.5-5.1) Chloride Level 100 MMOL/L (98-107) Carbon Dioxide Level 25 MMOL/L (21-32) Anion Gap 9 mmol/L (5-15) Blood Urea Nitrogen 16 mg/dL (7-18) Creatinine 0.9 MG/DL (0.55-1.30) Estimat Glomerular Filtration Rate > 60 mL/min (>60) Glucose Level 137 MG/DL (74-106) H Lactic Acid Level 1.70 mmol/L (0.4-2.0) Calcium Level 9.4 MG/DL (8.5-10.1) Total Bilirubin 0.2 MG/DL (0.2-1.0) Aspartate Amino Transf (AST/SGOT) 21 U/L (15-37) Alanine Aminotransferase (ALT/SGPT) 35 U/L (12-78) Alkaline Phosphatase 75 U/L (46-116) Total Protein 8.3 G/DL (6.4-8.2) H Albumin 3.6 G/DL (3.4-5.0) Globulin 4.7 g/dL Albumin/Globulin Ratio 0.8 (1.0-2.7) Abhilash Horan MD Sep 30, 2020 12:17
[2020-09-30] MEDS ORDERED: Piperacillin/Tazobactam 3.375 GM in NS 110 ML IVPB SCH (14:00)
--- NOTE | 2020-09-30 14:02 | Diagnostic Imaging Report ---
Indication: Cough Technique: One view of the chest Comparison: 09/17/2020 Findings: Lungs and pleural spaces are clear. Heart size is normal. No significant change Impression: No acute process
[2020-09-30 16:00] VITALS: BP 126/80
--- NOTE | 2020-09-30 16:00 | Consultation ---
DATE OF CONSULTATION: 09/30/2020 CARDIOLOGY CONSULTATION REFERRING PHYSICIAN: Eleno Giang M.D. REASON FOR CONSULTATION: Management of hypertension and chest pain. HISTORY OF PRESENT ILLNESS: The patient is a 59-year-old lady with a history of hypertension and morbid obesity, with history of breast abscess, status post I and D in March 2019, debridement and biopsy that was suggestive of potential inflammatory breast cancer at that time, even though the biopsies eventually were negative for malignancy. The patient presented to the emergency room with right-sided breast pain and cellulitis that started a few days earlier and noticed some drainage. The patient was evaluated by Dr. Giang today and underwent incision and drainage of right breast abscess that showed 2 abscesses at 3 o'clock as well as at 6 o'clock. Cardiology consultation was obtained for postoperative blood pressure management as well as chest pain. REVIEW OF SYSTEMS: Review of systems was negative other than what was mentioned in history of present illness. PAST MEDICAL HISTORY: As mentioned above. FAMILY HISTORY: Noncontributory. SOCIAL HISTORY: Lives at home. Does not smoke or drink alcohol. PHYSICAL EXAMINATION: VITAL SIGNS: Blood pressure of 158/72, was 165/76, pulse 82, respirations 18, and temperature 98.2. HEAD AND NECK: No JVD. LUNGS: Clear. CARDIOVASCULAR: Regular S1 and S2 with no gallop or murmur. ABDOMEN: Soft and obese. EXTREMITIES: No pitting edema. BREASTS: The right breast is covered with dressing. LABORATORY AND DIAGNOSTIC DATA: Her labs show white count 5.5, hemoglobin 15.2, hematocrit 47.7, platelet count 285. Sodium 134, potassium 4.0, BUN 6, and creatinine 0.6. INR is 1. ASSESSMENT AND PLAN: 1. History of hypertension. I will add p.r.n. clonidine to her medical regimen. Also add lisinopril 10 mg daily as her creatinine is normal. 2. Chest pain. We will completely rule out NH protocol, likely due to breast abscess. We will get an echocardiogram for further evaluation and management as well. 3. Right breast abscess, status post I and D by Dr. Giang. Biopsy result is pending. Thank you very much for allowing me to participate in the care of this patient. Please do not hesitate to contact me for any questions regarding my evaluation. Abhilash Tilley M.D. DR: JOSH JOB#: [id number] CC:
[2020-09-30] MEDS: HYDROcodone/Acetamin 5/325 tab ORAL PRN (16:40)
--- NOTE | 2020-09-30 17:41 | Cardiology Report ---
APPROVED REPORT EXAM: Two-dimensional and M-mode echocardiogram with Doppler and color Doppler. INDICATION Chest Pain M-Mode DIMENSIONS IVSd1.3 (0.7-1.1cm)Left Atrium (MM)4.3 (1.6-4.0cm) LVDd4.6 (3.5-5.6cm)Aortic Root2.8 (2.0-3.7cm) PWd1.4 (0.7-1.1cm)Aortic Cusp Exc.2.2 (1.5-2.0cm) IVSs1.3 cm LVDs2.5 (2.5-4.0cm) PWs1.6 cm <Conclusion> Technically difficult study due to pts body habitus Normal left ventricular chamber size, systolic function and wall motion to extent visualized. Left ventricular ejection fraction estimated to be 60-65 %. Mild left ventricular hypertrophy by 2-D. No evidence of pericardial effusion. All other cardiac chamber sizes are within normal limits. Calcification of aortic valve with normal cusp excursion. Thickened mitral valve leaflets with normal excursion. Mitral annulus and aortic root calcification. Pulmonic valve not well visualized. Normal tricuspid valve structure. IVC measured at size 2.2 without physiologic collapse suggestive of increased RA pressure. Atrial seeptla aneurysm noted A color flow and spectral Doppler study was performed and revealed: No aortic insufficiency. Trace mitral regurgitation. Mitral diastolic velocities suggest reduced left ventricular relaxation c/w mild LV diastolic dysfunction (Grade I ). Trace tricuspid regurgitation. Tricuspid systolic velocities suggests peak right ventricular systolic pressure of 15 mmHg.
--- NOTE | 2020-09-30 19:00 | NUR ---
NURSE NOTES: Received report from JACOBY Sharif. AAO x 4, on room air, ambulatory. Dressing on R breast d/c/i. IV site intact and patent. Denies pain at this time. No acute distress noted. Bed locked, lowest position, alarm on, side rails up, call light within reach. Will continue to monitor.
--- NOTE | 2020-09-30 19:07 | Infectious Diseases Prog Note ---
Assessment/Plan Assessment/Plan Full consult dictated: A) 1) right breast abscess/cellulitis 2) s/p I/D 3) pmh noted P) 1) vancomycin and cefepime 2) f/u on cultures 3) thank you Subjective Allergies: Coded Allergies: No Known Allergies (Unverified , 04/07/19) Objective Last 24 Hour Vital Signs Date Time Temp Pulse Resp B/P (MAP) Pulse Ox O2 Delivery O2 Flow Rate FiO2 09/30/20 16:00 98.1 51 18 126/80 (95) 96 09/30/20 11:12 Room Air 09/30/20 10:27 98.2 82 21 158/72 99 Room Air 09/30/20 08:03 98.2 20 165/76 94 Room Air 09/30/20 07:53 98.2 79 20 165/76 (105) 94 Room Air Height (Feet): 5 Height (Inches): 7.00 Weight (Pounds): 300 Laboratory Tests Test 09/30/20 08:20 White Blood Count 5.1 K/UL (4.8-10.8) Red Blood Count 5.70 M/UL (4.20-5.40) H Hemoglobin 15.3 G/DL (12.0-16.0) Hematocrit 47.7 % (37.0-47.0) H Mean Corpuscular Volume 84 FL (80-99) Mean Corpuscular Hemoglobin 26.8 PG (27.0-31.0) L Mean Corpuscular Hemoglobin Concent 32.0 G/DL (32.0-36.0) Red Cell Distribution Width 14.0 % (11.6-14.8) Platelet Count 285 K/UL (150-450) Mean Platelet Volume 8.5 FL (6.5-10.1) Neutrophils (%) (Auto) 46.0 % (45.0-75.0) Lymphocytes (%) (Auto) 39.8 % (20.0-45.0) Monocytes (%) (Auto) 9.5 % (1.0-10.0) Eosinophils (%) (Auto) 3.2 % (0.0-3.0) H Basophils (%) (Auto) 1.5 % (0.0-2.0) Prothrombin Time 10.9 SEC (9.30-11.50) Prothromb Time International Ratio 1.0 (0.9-1.1) Activated Partial Thromboplast Time 26 SEC (23-33) Urine Color Pale yellow Urine Appearance Clear Urine pH 6.5 (4.5-8.0) Urine Specific [place] 1.010 (1.005-1.035) Urine Protein Negative (NEGATIVE) Urine Glucose (UA) Negative (NEGATIVE) Urine Ketones Negative (NEGATIVE) Urine Blood Negative (NEGATIVE) Urine Nitrite Negative (NEGATIVE) Urine Bilirubin Negative (NEGATIVE) Urine Urobilinogen Normal MG/DL (0.0-1.0) Urine Leukocyte Esterase Negative (NEGATIVE) Sodium Level 134 MMOL/L (136-145) L Potassium Level 4.0 MMOL/L (3.5-5.1) Chloride Level 100 MMOL/L (98-107) Carbon Dioxide Level 25 MMOL/L (21-32) Anion Gap 9 mmol/L (5-15) Blood Urea Nitrogen 16 mg/dL (7-18) Creatinine 0.9 MG/DL (0.55-1.30) Estimat Glomerular Filtration Rate > 60 mL/min (>60) Glucose Level 137 MG/DL (74-106) H Lactic Acid Level 1.70 mmol/L (0.4-2.0) Calcium Level 9.4 MG/DL (8.5-10.1) Total Bilirubin 0.2 MG/DL (0.2-1.0) Aspartate Amino Transf (AST/SGOT) 21 U/L (15-37) Alanine Aminotransferase (ALT/SGPT) 35 U/L (12-78) Alkaline Phosphatase 75 U/L (46-116) Total Protein 8.3 G/DL (6.4-8.2) H Albumin 3.6 G/DL (3.4-5.0) Globulin 4.7 g/dL Albumin/Globulin Ratio 0.8 (1.0-2.7) L Current Medications Medications (Trade) Dose Ordered Sig/Yoan Route PRN Reason Start Time Stop Time Status Last Admin Dose Admin Acetaminophen (Tylenol) 650 mg Q4H PRN ORAL Temp >100.5 09/30/20 12:00 10/30/20 11:59 Acetaminophen/ Hydrocodone Bitart ([place] 5/325) 1 tab Q4H PRN ORAL Moderate Pain (Pain Scale 4-6) 09/30/20 12:00 10/07/20 11:59 09/30/20 16:40 Al Hydroxide/Mg Hydroxide (Mylanta II) 30 ml Q6H PRN ORAL dyspepsia 09/30/20 12:00 10/30/20 11:59 Bisacodyl (Dulcolax) 10 mg HSPRN PRN RECTAL Constipation 09/30/20 12:00 12/29/20 11:59 Clonidine HCl (Catapres Tab) 0.1 mg Q4H PRN ORAL sbp>170 mmHg 09/30/20 12:30 12/29/20 12:29 Dextrose (Dextrose 50%) 25 ml Q30M PRN IV Hypoglycemia 09/30/20 12:00 12/29/20 11:59 Dextrose (Dextrose 50%) 50 ml Q30M PRN IV Hypoglycemia 09/30/20 12:00 12/29/20 11:59 Diphenhydramine HCl (Benadryl) 25 mg Q6H PRN ORAL Itching/Pruritis 09/30/20 12:00 10/30/20 11:59 Docusate Sodium (Colace) 100 mg EVERY 12 HOURS ORAL 09/30/20 21:00 10/30/20 20:59 Famotidine (Pepcid) 40 mg DAILY ORAL 10/01/20 09:00 12/30/20 08:59 Heparin Sodium (Porcine) (Heparin 5000 units/ml) 5,000 units EVERY 12 HOURS SUBQ 09/30/20 21:00 11/14/20 20:59 Lisinopril (ZestriL) 10 mg DAILY ORAL 10/01/20 09:00 10/31/20 08:59 Lorazepam (Ativan) 1 mg Q4H PRN ORAL For Anxiety 09/30/20 12:00 10/07/20 11:59 Magnesium Hydroxide (Mom) 30 ml HSPRN PRN ORAL Constipation 09/30/20 12:00 10/30/20 11:59 Ondansetron HCl (Zofran) 4 mg Q6H PRN IVP Nausea & Vomiting 09/30/20 12:00 10/30/20 11:59 Piperacillin Sod/ Tazobactam Sod 3.375 gm/Sodium Chloride 110 ml @ 27.5 mls/hr EVERY 8 HOURS IVPB 09/30/20 14:00 10/05/20 13:59 09/30/20 15:19 Sodium Chloride 1,000 ml @ 75 mls/hr [id number] IVLG 09/30/20 13:00 10/30/20 12:59 09/30/20 15:19 Temazepam (Restoril) 15 mg HSPRN PRN ORAL Insomnia 09/30/20 21:00 10/07/20 20:59 Jimmie Rider MD Sep 30, 2020 19:07
--- NOTE | 2020-09-30 19:16 | NUR ---
NURSE HAND-OFF: Important Events on Shift:new admission. started IV ATB for abscess on right breast. Patient Status: stable Diet: regular Pending Orders: n/a Pending Results/Labs:cx wound gram stain Pending MD notification:n/a Latest Vital Signs: Temperature 98.1 , Pulse 51 , B/P 126 /80 , Respiratory Rate 18 , O2 SAT 96 , Room Air, O2 Flow Rate . Vital Sign Comment: stable Latest Jackson Fall Score: 35 Fall Risk: Medium Risk Safety Measures: Call light Within Reach, Bed Alarm , Side Rails Side Rails x2, Bed position Low and Locked. Fall Precautions: Yellow Socks Report given to JACOBY Faustin.
[2020-09-30 20:00] VITALS: BP 124/75
[2020-09-30] MEDS: Docusate 100mg cap ORAL SCH (20:13)
[2020-09-30] MEDS: Heparin 5000 units/ml inj SUBQ SCH (20:14)
[2020-09-30] MEDS: Vancomycin 1 GM in NS 275 ML IVPB SCH (21:15)
--- NOTE | 2020-09-30 21:45 | Consultation ---
DATE OF CONSULTATION: 09/30/2020 INFECTIOUS DISEASE CONSULTATION CONSULTING PHYSICIAN: Jimmie Rider M.D. ATTENDING PHYSICIAN: Jackie Gore M.D. REFERRING PHYSICIAN: Jackie Gore M.D. and Eleno Giang M.D. REASON FOR CONSULTATION: Right breast abscess, cellulitis. REASON FOR ADMISSION: Right breast abscess, cellulitis. HISTORY OF PRESENT ILLNESS: This is a very pleasant 59-year-old female who comes in to [facility] with right breast abscess and cellulitis. The patient is status post I and D done by Surgery today. The patient's cultures are pending. The patient has had symptoms of the right breast since last week. Infectious Disease consultation was requested for antibiotic management. The patient was placed on vancomycin and cefepime. Case was discussed with Dr. Giang. The patient is again status post I and D of the right breast abscess, cellulitis and cultures are pending. REVIEW OF SYSTEMS: Main issue is right breast pain. She denies any fever, chills. CARDIAC: No chest pain. GASTROINTESTINAL: No nausea, vomiting, or diarrhea. GENITOURINARY: No urinary frequency. There is no dysuria. PULMONARY: No shortness of breath or cough. SKIN: No rash. No headache or neck stiffness as mentioned. PAST MEDICAL HISTORY: The patient has a past medical history of following. The patient has a past medical history of hypertension and also edema. I think she looks like she had right breast abscess in 2019. She had history of right breast surgery also. ALLERGIES: No known drug allergies. No antibiotic allergies. SOCIAL HISTORY: Negative for smoking, alcohol, or drug abuse. FAMILY HISTORY: Noncontributory. MEDICATIONS: Upon reviewing the MAR, she is on the following medications. She is on lisinopril, famotidine, vancomycin, cefepime, temazepam, docusate, heparin. She was on Zosyn, I discontinued. She is on clonidine. She is on hydrocodone. She is on diphenhydramine, lorazepam, Zofran, magnesium hydroxide, and acetaminophen. Outside medications noted and reconciliated. PHYSICAL EXAMINATION: VITAL SIGNS: Temperature is 98.1, pulse rate 51, respiratory rate 18, blood pressure 126/80, saturation 96% on room air. GENERAL: Alert and responsive, in no acute distress. HEAD AND NECK: Oral exam, no thrush. Eye exam, no icterus. Normocephalic. Neck is supple. No JVD. She is oriented x3. HEART: Regular. No gallop or murmur. ABDOMEN: Soft. Positive bowel sounds. Nontender. LUNGS: Clear bilaterally. No rhonchi or rales. SKIN: No rash. MUSCULOSKELETAL: No effusions. Legs are without cellulitis. PERIPHERAL VASCULAR: No cyanosis or gangrene. LINES: Line sites without phlebitis. : No [place]. BREASTS: Right breast exam was done with the RN at the bedside. She has drainage in 2 sites of the right breast and one larger sites was packed after the I and D. She has surrounding cellulitis also. NEUROLOGIC: Intact. Alert and oriented. LABORATORY AND DIAGNOSTIC DATA: Laboratory data as follows. Creatinine 0.9. White count 5.1, hemoglobin 15.3. UA is negative. Right breast drainage culture is pending. Chest x-ray showed no acute process. ASSESSMENT AND PLAN: 1. The patient has right breast abscess and cellulitis. The patient is status post incision and drainage done by Surgery, Dr. Giang today. Cultures are pending. Most likely, pathogens would be Staph aureus including MRSA and Streptococcus species. Rule out Gram-negative. The patient's antibiotics, we will continue with vanco and cefepime. Vanco for MRSA and Staph aureus coverage and Streptococcus coverage and cefepime for Gram-negative coverage. Continue vanco and cefepime for right breast abscess, status post I and D right breast cellulitis. 2. Hypertension. Blood pressure treatment per primary care team. 3. History of right breast surgery. 4. Edema. 5. No known allergies. 6. Social history is negative. 7. Family history is noncontributory. 8. MAR is noted. 9. Case was discussed with RN. 10. Continue treatment per primary consultants. 11. Case was discussed with Dr. Giang and the patient and the RN. Jimmie Rider M.D. DR: AMIE JOB#: [id number] CC:
[2020-10-01] VITALS: BP 132/76
--- NOTE | 2020-10-01 00:12 | History and Physical ---
History of Present Illness General Date patient seen: Sep 30, 2020 Time patient seen: 12:35 Reason for Hospitalization: Skin Rash/Abscess Present Illness HPI Araceli Craig is a pleasant 59 yo F with history of cellulitis of right breast, HTN, history of breast abscess status post I&D March 2019 with debridement and biopsy given concerns for potential inflammatory breast cancer at that time. Biopsies were negative for malignancy at the time. Today patient comes again with apparent infection of right breast causing pain. No other rashes or painful areas per patient. Surgery Dr. Giang performed bedside I&D today, drained 2 abscesses. Patient is currently on antibiotics. She was admitted for concern for resistant organisms causing infection so cultures can be monitored. Allergies: Coded Allergies: No Known Allergies (Unverified , 04/07/19) COVID-19 Screening Contact w/high risk pt: No Recent Travel to affected area: No Experienced COVID-19 symptoms?: No Medication History Scheduled Amlodipine Besylate* (Amlodipine Besylate*), 10 MG ORAL DAILY, (Reported) Amoxicillin/Potassium Clav 875-125* (Augmentin 875-125 Tablet*), 1 TAB ORAL TWICE A DAY Aspirin* (Aspir 81*), 81 MG ORAL DAILY, (Reported) Atorvastatin Calcium* (Atorvastatin Calcium*), 10 MG ORAL BEDTIME, (Reported) Bimatoprost (Lumigan), 1 DROP BOTH EYES DAILY, (Reported) Hydrochlorothiazide* (Hydrochlorothiazide*), 12.5 MG ORAL DAILY, (Reported) Hydrochlorothiazide* (Hydrochlorothiazide*), 50 MG ORAL DAILY, (Reported) Levofloxacin (Levofloxacin*), 750 MG ORAL DAILY, (Reported) Lisinopril* (Lisinopril*), 10 MG ORAL DAILY, (Reported) Losartan Potassium* (Losartan Potassium*), MG ORAL DAILY, (Reported) Meloxicam* (Mobic*), 15 MG ORAL DAILY, (Reported) Meloxicam* (Meloxicam*), 15 MG PO DAILY, (Reported) Metronidazole* (Flagyl*), 500 MG ORAL EVERY 8 HOURS, (Reported) Naproxen* (Naproxen*), 500 MG ORAL TWICE A DAY, (Reported) Naproxen* (Naprosyn*), 500 MG ORAL TWICE A DAY, (Reported) Omeprazole (Omeprazole), 20 MG ORAL DAILY, (Reported) Paroxetine Hcl* (Paxil*), 20 MG ORAL DAILY, (Reported) Timolol Maleate (Timolol Maleate), 1 DROP BOTH EYES TWICE A DAY, (Reported) Trimethoprim/Sulfamethoxazole (Bactrim Ds Tablet), 1 TAB ORAL TWICE A DAY, (Reported) Miscellaneous Medications Clotrimazole (Clotrimazole), 10 GM MC, (Reported) Patient History History Provided By: Patient Healthcare decision maker Resuscitation status Advanced Directive on File Past Medical/Surgical History Past Medical/Surgical History: (1) Abscess of right breast (2) Cellulitis of right breast (3) Edema (4) Hypertension Family History Family History: FH: VT (myocardial infarction) Social History Social History: (1) Marijuana use (2) Smoker Review of Systems Constitutional: Denies: chills, fever Eye: Denies: eye pain, blurred vision, double vision, nose congestion ENT: Denies: ear pain, nose pain, throat pain, throat swelling, mouth pain Respiratory: Denies: cough, orthopnea, shortness of breath Cardiovascular: Denies: chest pain, edema, palpitations Gastrointestinal: Denies: abdominal pain, constipation, diarrhea, nausea, vomiting Genitourinary: Denies: frequency, hematuria Musculoskeletal: Denies: muscle pain, muscle stiffness Skin: Reports: rash Psychiatric: Denies: anxiety, hallucinations Neurological: Denies: headache, numbness, paresthesia Endocrine: Denies: excessive sweating, flushing, intolerance to temperature Hematologic/Lymphatic: Denies: anemia, blood clots, easy bleeding Physical Exam General Appearance: WD/WN, no apparent distress, alert HEENT: normocephalic, atraumatic, anicteric, mucous membranes moist, PERRL, EOMI, pharynx normal, supple, no JVD Neck: non-tender, normal alignment, supple, normal inspection Respiratory/Chest: chest wall non-tender, lungs clear, normal breath sounds, no respiratory distress, no accessory muscle use Breasts: other - right breast abscesses s/p drainage, bandaged Cardiovascular/Chest: normal rate, regular rhythm, no gallop/murmur Abdomen: normal bowel sounds, non tender, soft, no organomegaly, no mass Skin Exam: normal pigmentation, warm/dry 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, alert, oriented x 3, responsive, normal mood/affect Musculoskeletal: normal muscle bulk Last 24 Hour Vital Signs Date Time Temp Pulse Resp B/P (MAP) Pulse Ox O2 Delivery O2 Flow Rate FiO2 09/30/20 21:00 Room Air 09/30/20 20:00 97.8 65 18 124/75 (91) 97 09/30/20 16:00 98.1 51 18 126/80 (95) 96 09/30/20 11:12 Room Air 09/30/20 10:27 98.2 82 21 158/72 99 Room Air 09/30/20 08:03 98.2 20 165/76 94 Room Air 09/30/20 07:53 98.2 79 20 165/76 (105) 94 Room Air Laboratory Tests Test 09/30/20 08:20 White Blood Count 5.1 K/UL (4.8-10.8) Red Blood Count 5.70 M/UL (4.20-5.40) H Hemoglobin 15.3 G/DL (12.0-16.0) Hematocrit 47.7 % (37.0-47.0) H Mean Corpuscular Volume 84 FL (80-99) Mean Corpuscular Hemoglobin 26.8 PG (27.0-31.0) L Mean Corpuscular Hemoglobin Concent 32.0 G/DL (32.0-36.0) Red Cell Distribution Width 14.0 % (11.6-14.8) Platelet Count 285 K/UL (150-450) Mean Platelet Volume 8.5 FL (6.5-10.1) Neutrophils (%) (Auto) 46.0 % (45.0-75.0) Lymphocytes (%) (Auto) 39.8 % (20.0-45.0) Monocytes (%) (Auto) 9.5 % (1.0-10.0) Eosinophils (%) (Auto) 3.2 % (0.0-3.0) H Basophils (%) (Auto) 1.5 % (0.0-2.0) Prothrombin Time 10.9 SEC (9.30-11.50) Prothromb Time International Ratio 1.0 (0.9-1.1) Activated Partial Thromboplast Time 26 SEC (23-33) Urine Color Pale yellow Urine Appearance Clear Urine pH 6.5 (4.5-8.0) Urine Specific [place] 1.010 (1.005-1.035) Urine Protein Negative (NEGATIVE) Urine Glucose (UA) Negative (NEGATIVE) Urine Ketones Negative (NEGATIVE) Urine Blood Negative (NEGATIVE) Urine Nitrite Negative (NEGATIVE) Urine Bilirubin Negative (NEGATIVE) Urine Urobilinogen Normal MG/DL (0.0-1.0) Urine Leukocyte Esterase Negative (NEGATIVE) Sodium Level 134 MMOL/L (136-145) L Potassium Level 4.0 MMOL/L (3.5-5.1) Chloride Level 100 MMOL/L (98-107) Carbon Dioxide Level 25 MMOL/L (21-32) Anion Gap 9 mmol/L (5-15) Blood Urea Nitrogen 16 mg/dL (7-18) Creatinine 0.9 MG/DL (0.55-1.30) Estimat Glomerular Filtration Rate > 60 mL/min (>60) Glucose Level 137 MG/DL (74-106) H Lactic Acid Level 1.70 mmol/L (0.4-2.0) Calcium Level 9.4 MG/DL (8.5-10.1) Total Bilirubin 0.2 MG/DL (0.2-1.0) Aspartate Amino Transf (AST/SGOT) 21 U/L (15-37) Alanine Aminotransferase (ALT/SGPT) 35 U/L (12-78) Alkaline Phosphatase 75 U/L (46-116) Total Protein 8.3 G/DL (6.4-8.2) H Albumin 3.6 G/DL (3.4-5.0) Globulin 4.7 g/dL Albumin/Globulin Ratio 0.8 (1.0-2.7) L Height (Feet): 5 Height (Inches): 7.00 Weight (Pounds): 300 Medications Current Medications Medications (Trade) Dose Ordered Sig/Yoan Route PRN Reason Start Time Stop Time Status Last Admin Dose Admin Acetaminophen (Tylenol) 650 mg Q4H PRN ORAL Temp >100.5 09/30/20 12:00 10/30/20 11:59 Acetaminophen/ Hydrocodone Bitart ([place] 5/325) 1 tab Q4H PRN ORAL Moderate Pain (Pain Scale 4-6) 09/30/20 12:00 10/07/20 11:59 09/30/20 16:40 Al Hydroxide/Mg Hydroxide (Mylanta II) 30 ml Q6H PRN ORAL dyspepsia 09/30/20 12:00 10/30/20 11:59 Bisacodyl (Dulcolax) 10 mg HSPRN PRN RECTAL Constipation 09/30/20 12:00 12/29/20 11:59 Cefepime HCl 2 gm/ Dextrose 100 ml @ 200 mls/hr Q12HR IVPB 09/30/20 21:00 10/07/20 20:59 09/30/20 20:13 Clonidine HCl (Catapres Tab) 0.1 mg Q4H PRN ORAL sbp>170 mmHg 09/30/20 12:30 12/29/20 12:29 Dextrose (Dextrose 50%) 25 ml Q30M PRN IV Hypoglycemia 09/30/20 12:00 12/29/20 11:59 Dextrose (Dextrose 50%) 50 ml Q30M PRN IV Hypoglycemia 09/30/20 12:00 12/29/20 11:59 Diphenhydramine HCl (Benadryl) 25 mg Q6H PRN ORAL Itching/Pruritis 09/30/20 12:00 10/30/20 11:59 Docusate Sodium (Colace) 100 mg EVERY 12 HOURS ORAL 09/30/20 21:00 10/30/20 20:59 09/30/20 20:13 Famotidine (Pepcid) 40 mg DAILY ORAL 10/01/20 09:00 12/30/20 08:59 Heparin Sodium (Porcine) (Heparin 5000 units/ml) 5,000 units EVERY 12 HOURS SUBQ 09/30/20 21:00 11/14/20 20:59 09/30/20 20:14 Lisinopril (ZestriL) 10 mg DAILY ORAL 10/01/20 09:00 10/31/20 08:59 Lorazepam (Ativan) 1 mg Q4H PRN ORAL For Anxiety 09/30/20 12:00 10/07/20 11:59 Magnesium Hydroxide (Mom) 30 ml HSPRN PRN ORAL Constipation 09/30/20 12:00 10/30/20 11:59 Ondansetron HCl (Zofran) 4 mg Q6H PRN IVP Nausea & Vomiting 09/30/20 12:00 10/30/20 11:59 Sodium Chloride 1,000 ml @ 75 mls/hr [id number] IVLG 09/30/20 13:00 10/30/20 12:59 09/30/20 15:19 Temazepam (Restoril) 15 mg HSPRN PRN ORAL Insomnia 09/30/20 21:00 10/07/20 20:59 09/30/20 21:12 Vancomycin HCl (Vanco pharmacy to dose) 1 ea DAILY PRN MISC Per rx protocol 09/30/20 19:15 10/30/20 19:14 Vancomycin HCl 1 gm/Sodium Chloride 275 ml @ 183.708 mls/hr Q12HR@1000,2200 IVPB 09/30/20 22:00 10/05/20 21:59 09/30/20 21:15 Assessment/Plan Assessment/Plan: A: #Right breast abscess x2 s/p I&D #Right breast cellulitis #Chest pain #Essential HTN P: - antibiotics per ID, cefepime and vancomycin - for BP, clonidine and lisinopril per cardiology - Chest pain likely 2/2 breast abscess, but f/u TTE per cardiology - Surgery Dr. Giang following, appreciate recs - ID Dr. Meadows following, appreciate recs - Cardiology Dr. Tilley following, appreciate recs CODE: Full GI: None Diet: Regular DVT prophylaxis: Heparin Dispo: pending abscess cultures for appropriate antibiotic selection for discharge Time spent on this encounter was 47 minutes which included 26 minutes of counseling and care coordination. I discussed with the nurse at bedside. Also 16 minutes spent on tobacco cessation counseling. Time of note may not reflect time patient was seen. Donovan Ribera M.D. Oct 01, 2020 00:12
[2020-10-01 04:00] VITALS: BP 132/77
[2020-10-01] MEDS: HYDROcodone/Acetamin 5/325 tab ORAL PRN ×3 (04:37→16:41)
--- NOTE | 2020-10-01 06:29 | NUR ---
NURSE HAND-OFF: Important Events on Shift:pain on R breast Patient Status: stable Diet: reg Pending Orders: EKG Pending Results/Labs:AM labs Pending MD notification: Latest Vital Signs: Temperature 96.8 , Pulse 73 , B/P 132 /77 , Respiratory Rate 17 , O2 SAT 98 , Room Air, O2 Flow Rate . Vital Sign Comment: [] Latest Jackson Fall Score: 35 Fall Risk: Medium Risk Safety Measures: Call light Within Reach, Bed Alarm Zone 1, Side Rails Side Rails x2, Bed position Low and Locked. Fall Precautions: Yellow Socks Door Sign Patient Fall Education Addendum: 10/01/20 at 0732 by ADITYA MENDIOLA RN RN HAND-OFF: Report given to Claudine Iyer
[2020-10-01 06:58] LABS: BASOPHILS % (AUTO) 1.3 % (0.0-2.0); HEMATOCRIT 42.2 % (37.0-47.0); HEMOGLOBIN 13.5 G/DL (12.0-16.0); LYMPHOCYTES % (AUTO) 50.5 % (20.0-45.0); MEAN CORPUSCULAR VOLUME 83 FL (80-99); MONOCYTES % (AUTO) 11.8 % (1.0-10.0); NEUTROPHILS % (AUTO) 32.4 % (45.0-75.0); PLATELET COUNT 282 K/UL (150-450); RED BLOOD COUNT 5.09 M/UL (4.20-5.40); RED CELL DISTRIBUTION WIDTH 13.7 % (11.6-14.8); WHITE BLOOD COUNT 4.8 K/UL (4.8-10.8)
[2020-10-01 07:14] LABS: ALANINE AMINOTRANSFERASE 24 U/L (12-78); ALBUMIN 3.2 G/DL (3.4-5.0); ALBUMIN/GLOBULIN RATIO 0.7 (1.0-2.7); ALKALINE PHOSPHATASE 67 U/L (46-116); ANION GAP 5 mmol/L (5-15); ASPARTATE AMINO TRANSFERASE 14 U/L (15-37); BILIRUBIN,TOTAL 0.4 MG/DL (0.2-1.0); BLOOD UREA NITROGEN 13 mg/dL (7-18); CARBON DIOXIDE 32 MMOL/L (21-32); CHLORIDE 101 MMOL/L (98-107); CHOLESTEROL 175 MG/DL (< 200); HDL CHOLESTEROL 34 MG/DL (40-60); POTASSIUM 4.1 MMOL/L (3.5-5.1); SODIUM 138 MMOL/L (136-145); TRIGLYCERIDES 129 MG/DL (30-150)
--- NOTE | 2020-10-01 07:41 | NUR ---
NURSE NOTES: Patient is sitting up at the edge of the bed. Stable. Able to verbalize needs. Denies pain or SOB. Patient instructed to use call light for assistance, verbalized understanding. All safety measures provided. Bed is in locked and lowest position with call light within reach. All needs met at this time. Will continue to monitor.
[2020-10-01 08:00] VITALS: BP 116/45
[2020-10-01] MEDS: Lisinopril 10mg tab ORAL SCH (09:00)
[2020-10-01] MEDS: Heparin 5000 units/ml inj SUBQ SCH ×2 (09:19→21:20)
[2020-10-01] MEDS: Docusate 100mg cap ORAL SCH ×2 (09:20→21:19)
[2020-10-01] MEDS: Vancomycin 1 GM in NS 275 ML IVPB SCH ×2 (09:20→21:21)
[2020-10-01 12:00] VITALS: BP 143/85
[2020-10-01] MEDS ORDERED: Bismuth Subsalicylate 30ml ORAL PRN (12:15)
--- NOTE | 2020-10-01 12:57 | Cardiac Electrophysiology PN ---
Assessment/Plan Assessment/Plan 1. History of hypertension. On p.r.n. clonidine and lisinopril 10 mg daily 2. Chest pain. We will completely rule out VT protocol, likely due to breast abscess. Echocardiogram Nl EF 55% 3. Right breast abscess, status post I and D by Dr. Giang. Biopsy result is pending. Subjective Subjective Still has right breast incisional pain. No left sided chest pain.EF 55% Objective Last 24 Hour Vital Signs Date Time Temp Pulse Resp B/P (MAP) Pulse Ox O2 Delivery O2 Flow Rate FiO2 10/01/20 12:00 96.8 58 20 143/85 (104) 98 10/01/20 09:00 Room Air 10/01/20 08:00 97.9 64 19 116/45 (68) 99 10/01/20 04:00 96.8 73 17 132/77 (95) 98 10/01/20 00:00 97.8 80 17 132/76 (94) 95 09/30/20 21:00 Room Air 09/30/20 20:00 97.8 65 18 124/75 (91) 97 09/30/20 16:00 98.1 51 18 126/80 (95) 96 Intake and Output 09/30/20 10/01/20 19:00 07:00 Intake Total 1125 ml 360 ml Balance 1125 ml 360 ml Intake IV Total 225 ml Other 900 ml 360 ml # Voids 2 # Bowel Movements 1 Laboratory Tests Test 10/01/20 06:10 White Blood Count 4.8 K/UL (4.8-10.8) Red Blood Count 5.09 M/UL (4.20-5.40) Hemoglobin 13.5 G/DL (12.0-16.0) Hematocrit 42.2 % (37.0-47.0) Mean Corpuscular Volume 83 FL (80-99) Mean Corpuscular Hemoglobin 26.5 PG (27.0-31.0) L Mean Corpuscular Hemoglobin Concent 31.9 G/DL (32.0-36.0) L Red Cell Distribution Width 13.7 % (11.6-14.8) Platelet Count 282 K/UL (150-450) Mean Platelet Volume 8.3 FL (6.5-10.1) Neutrophils (%) (Auto) 32.4 % (45.0-75.0) L Lymphocytes (%) (Auto) 50.5 % (20.0-45.0) H Monocytes (%) (Auto) 11.8 % (1.0-10.0) H Eosinophils (%) (Auto) 4.0 % (0.0-3.0) H Basophils (%) (Auto) 1.3 % (0.0-2.0) Erythrocyte Sedimentation Rate 25 MM/HR (0-30) Sodium Level 138 MMOL/L (136-145) Potassium Level 4.1 MMOL/L (3.5-5.1) Chloride Level 101 MMOL/L (98-107) Carbon Dioxide Level 32 MMOL/L (21-32) Anion Gap 5 mmol/L (5-15) Blood Urea Nitrogen 13 mg/dL (7-18) Creatinine 1.0 MG/DL (0.55-1.30) Estimat Glomerular Filtration Rate > 60 mL/min (>60) Glucose Level 115 MG/DL (74-106) H Hemoglobin A1c 7.0 % (4.3-6.0) H Calcium Level 9.0 MG/DL (8.5-10.1) Total Bilirubin 0.4 MG/DL (0.2-1.0) Aspartate Amino Transf (AST/SGOT) 14 U/L (15-37) L Alanine Aminotransferase (ALT/SGPT) 24 U/L (12-78) Alkaline Phosphatase 67 U/L (46-116) Troponin I 0.000 ng/mL (0.000-0.056) C-Reactive Protein, Quantitative 0.5 mg/dL (0.00-0.90) Pro-B-Type Natriuretic Peptide 81 pg/mL (0-125) Total Protein 7.5 G/DL (6.4-8.2) Albumin 3.2 G/DL (3.4-5.0) L Globulin 4.3 g/dL Albumin/Globulin Ratio 0.7 (1.0-2.7) L Triglycerides Level 129 MG/DL (30-150) Cholesterol Level 175 MG/DL (< 200) LDL Cholesterol 115 mg/dL (<100) H HDL Cholesterol 34 MG/DL (40-60) L Cholesterol/HDL Ratio 5.1 (3.3-4.4) H Thyroid Stimulating Hormone (TSH) 0.199 uiU/mL (0.358-3.740) Microbiology Date/Time Source Procedure Growth Status 09/30/20 11:30 Breast Right Gram Stain - Final Resulted 09/30/20 11:30 Breast Right Wound Culture - Preliminary NO GROWTH Resulted 09/30/20 11:30 Breast Right Gram Stain - Final Resulted 09/30/20 11:30 Breast Right Wound Culture - Preliminary NO GROWTH Resulted Objective HEAD AND NECK: No JVD. LUNGS: Clear. CARDIOVASCULAR: Regular S1 and S2 with no gallop or murmur. ABDOMEN: Soft and obese. EXTREMITIES: No pitting edema. BREASTS: The right breast is covered with dressing. Abhilash Tilley MD Oct 01, 2020 12:57
--- NOTE | 2020-10-01 14:19 | Cardiology Report ---
APPROVED REPORT EKG Measurement Heart [id number] <Conclusion> Sinus bradycardia with sinus arrhythmia Otherwise normal ECG
--- NOTE | 2020-10-01 14:41 | NUR ---
CASE MANAGEMENT:INITIAL REVIEW 59 YR OLD FEMALE FROM HOME CC;SKIN RASH. ABSCESS. SI;RT BREAST ABSCESS. RT BREAST CELLULITIS. 98.2 82 21 165/76 94% ON RA NA 134 BG 137 UA (-) NEGATIVE WOUND CULTURE ~ NO GROWTH CXR ~ NO ACUTE PROCESS 2D ECHO W/DOPPLER IS;IVF NS BOLUS ZOSYN IV ONCE ADMITTED TO MED SURG MED SURG STATUS DCP;FROM HOME
--- NOTE | 2020-10-01 15:00 | NUR ---
NURSE NOTES: Dressing changed.
--- NOTE | 2020-10-01 15:55 | Surgery Progress Note ---
Surgery Progress Note Subjective Procedure Performed Incision and drainage of right breast abscess x2 Symptoms: improved, tolerating diet, passing flatus, BM, pain decreased Objective Last 24 Hour Vital Signs Date Time Temp Pulse Resp B/P (MAP) Pulse Ox O2 Delivery O2 Flow Rate FiO2 10/01/20 12:00 96.8 58 20 143/85 (104) 98 10/01/20 09:00 Room Air 10/01/20 08:00 97.9 64 19 116/45 (68) 99 10/01/20 04:00 96.8 73 17 132/77 (95) 98 10/01/20 00:00 97.8 80 17 132/76 (94) 95 09/30/20 21:00 Room Air 09/30/20 20:00 97.8 65 18 124/75 (91) 97 09/30/20 16:00 98.1 51 18 126/80 (95) 96 I&O Intake and Output 09/30/20 10/01/20 19:00 07:00 Intake Total 1125 ml 360 ml Balance 1125 ml 360 ml IV Total 225 ml Other 900 ml 360 ml # Voids 2 # Bowel Movements 1 Dressing: saturated Wound: clean Cardiovascular: RSR Respiratory: clear Abdomen: soft, non-tender, present bowel sounds Extremities: no edema, no tenderness, no cyanosis Laboratory Tests Test 10/01/20 06:10 White Blood Count 4.8 K/UL (4.8-10.8) Red Blood Count 5.09 M/UL (4.20-5.40) Hemoglobin 13.5 G/DL (12.0-16.0) Hematocrit 42.2 % (37.0-47.0) Mean Corpuscular Volume 83 FL (80-99) Mean Corpuscular Hemoglobin 26.5 PG (27.0-31.0) L Mean Corpuscular Hemoglobin Concent 31.9 G/DL (32.0-36.0) L Red Cell Distribution Width 13.7 % (11.6-14.8) Platelet Count 282 K/UL (150-450) Mean Platelet Volume 8.3 FL (6.5-10.1) Neutrophils (%) (Auto) 32.4 % (45.0-75.0) L Lymphocytes (%) (Auto) 50.5 % (20.0-45.0) H Monocytes (%) (Auto) 11.8 % (1.0-10.0) H Eosinophils (%) (Auto) 4.0 % (0.0-3.0) H Basophils (%) (Auto) 1.3 % (0.0-2.0) Erythrocyte Sedimentation Rate 25 MM/HR (0-30) Sodium Level 138 MMOL/L (136-145) Potassium Level 4.1 MMOL/L (3.5-5.1) Chloride Level 101 MMOL/L (98-107) Carbon Dioxide Level 32 MMOL/L (21-32) Anion Gap 5 mmol/L (5-15) Blood Urea Nitrogen 13 mg/dL (7-18) Creatinine 1.0 MG/DL (0.55-1.30) Estimat Glomerular Filtration Rate > 60 mL/min (>60) Glucose Level 115 MG/DL (74-106) H Hemoglobin A1c 7.0 % (4.3-6.0) H Calcium Level 9.0 MG/DL (8.5-10.1) Total Bilirubin 0.4 MG/DL (0.2-1.0) Aspartate Amino Transf (AST/SGOT) 14 U/L (15-37) L Alanine Aminotransferase (ALT/SGPT) 24 U/L (12-78) Alkaline Phosphatase 67 U/L (46-116) Troponin I 0.000 ng/mL (0.000-0.056) C-Reactive Protein, Quantitative 0.5 mg/dL (0.00-0.90) Pro-B-Type Natriuretic Peptide 81 pg/mL (0-125) Total Protein 7.5 G/DL (6.4-8.2) Albumin 3.2 G/DL (3.4-5.0) L Globulin 4.3 g/dL Albumin/Globulin Ratio 0.7 (1.0-2.7) L Triglycerides Level 129 MG/DL (30-150) Cholesterol Level 175 MG/DL (< 200) LDL Cholesterol 115 mg/dL (<100) H HDL Cholesterol 34 MG/DL (40-60) L Cholesterol/HDL Ratio 5.1 (3.3-4.4) H Thyroid Stimulating Hormone (TSH) 0.199 uiU/mL (0.358-3.740) Assessment Post-op Diagnosis Right breast abscess 3 o'clock position 4 cm x 3 cm x 2 cm deep Right breast abscess 6 o'clock position 2 cm x 2 cm x 1 cm deep Plan Problems: (1) Abscess of right breast Assessment & Plan: 59-year-old female with 2 right breast abscess identified on examination. States began a few days ago now worsening. On the right breast approximately 3:00 there is a 4 cm x 3 cm fluctuant area with a 2 mm necrotic apex. Furthermore at the 6 to 7 o'clock position there is a 2 cm x 2 cm fluctu ant area as well. Both areas of erythema tender but without current drainage. Consent was obtained with the patient and with her permission the right breast was cleansed prepped and draped. Using surgical instruments both abscesses were drained. Cultures were taken. Approximately 20 cc of purulent serosanguineous fluid was evacuated. Wound was irrigated with normal saline. Packing dressings were applied. Patient taught procedure well. IV antibiotics until cultures resulted and will transition to oral for discharge Local wound care with gauze packing and dressing. I will change first dressing myself tomorrow Okay for diet Pain medication ID consult Cardiology consult to ensure right sided chest pain is non cardiac and related to breast abscess Thank you will follow recommendations Dressings going well doing better improving Micro noted Transition to oral antibiotics for discharge Outpatient follow-up Local wound care Thank you (2) Cellulitis of right breast (3) Edema (4) Hypertension Eleno Giang Oct 01, 2020 15:55
[2020-10-01 16:00] VITALS: BP 131/73
--- NOTE | 2020-10-01 19:20 | NUR ---
NURSE NOTES: RECEIVED PATIENT FROM JACOBY SUNG. PATIENT IS AAX4, ON ROOM AIR, NO S.S OF DISTRESS. DRESSING ON RIGHT BREAST INTACT AND DRY. PIV INTACT AND PATENT. BED IS LOCKED AND LOW, BED ALARMS ACTIVE, SIDE RAILS UPX2 AND CALL LIGHT IS WITHIN REACH. WILL CONTINUE TO MONITOR.
--- NOTE | 2020-10-01 19:47 | NUR ---
NURSE HAND-OFF: Important Events on Shift: dressing change Patient Status: stable Diet: regular Pending Orders: n/a Pending Results/Labs:n/a Pending MD notification:n/a Latest Vital Signs: Temperature 97.7 , Pulse 64 , B/P 131 /73 , Respiratory Rate 20 , O2 SAT 96 , Room Air, O2 Flow Rate . Vital Sign Comment: n/a Latest Jackson Fall Score: 35 Fall Risk: Medium Risk Safety Measures: Call light Within Reach, Bed Alarm Zone 1, Side Rails Side Rails x2, Bed position Low and Locked. Fall Precautions: Yellow Socks Door Sign Patient Fall Education Report given to Donna RN.
[2020-10-01 20:00] VITALS: BP 131/98
--- NOTE | 2020-10-01 23:10 | General Progress Note ---
Subjective Date patient seen: Oct 01, 2020 ROS Limited/Unobtainable: No Constitutional: Denies: chills, diaphoresis, fever, malaise HEENT: Denies: eye pain, blurred vision, ear pain, throat pain, mouth pain Cardiovascular: Denies: chest pain, edema, lightheadedness, palpitations Respiratory: Denies: cough, orthopnea, shortness of breath Gastrointestinal/Abdominal: Denies: abdomen distended, abdominal pain, blood in stool, constipated, diarrhea, nausea Genitourinary: Denies: burning, hematuria Neurologic/Psychiatric: Denies: headache, numbness, paresthesia Endocrine: Denies: intolerance to cold, intolerance to heat Hematologic/Lymphatic: Denies: anemia, easy bleeding Allergies: Coded Allergies: No Known Allergies (Unverified , 04/07/19) Subjective No acute events overnight. Patient feeling generally well today, reports mild pain in right breast in sites of I&D, though feeling much better compared to prior to drainage. Objective Last 24 Hour Vital Signs Date Time Temp Pulse Resp B/P (MAP) Pulse Ox O2 Delivery O2 Flow Rate FiO2 10/01/20 16:00 97.7 64 20 131/73 (92) 96 10/01/20 12:00 96.8 58 20 143/85 (104) 98 10/01/20 09:00 Room Air 10/01/20 08:00 97.9 64 19 116/45 (68) 99 10/01/20 04:00 96.8 73 17 132/77 (95) 98 10/01/20 00:00 97.8 80 17 132/76 (94) 95 Intake and Output 09/30/20 10/01/20 19:00 07:00 Intake Total 1125 ml 360 ml Balance 1125 ml 360 ml IV Total 225 ml Other 900 ml 360 ml # Voids 2 # Bowel Movements 1 Laboratory Tests 10/01/20 06:10: White Blood Count 4.8, Red Blood Count 5.09, Hemoglobin 13.5, Hematocrit 42.2, Mean Corpuscular Volume 83, Mean Corpuscular Hemoglobin 26.5L, Mean Corpuscular Hemoglobin Concent 31.9L, Red Cell Distribution Width 13.7, Platelet Count 282, Mean Platelet Volume 8.3, Neutrophils (%) (Auto) 32.4L, Lymphocytes (%) (Auto) 50.5H, Monocytes (%) (Auto) 11.8H, Eosinophils (%) (Auto) 4.0H, Basophils (%) (Auto) 1.3, Erythrocyte Sedimentation Rate 25, Sodium Level 138, Potassium Level 4.1, Chloride Level 101, Carbon Dioxide Level 32, Anion Gap 5, Blood Urea Nitrogen 13, Creatinine 1.0, Estimat Glomerular Filtration Rate > 60, Glucose Level 115H, Hemoglobin A1c 7.0H, Calcium Level 9.0, Total Bilirubin 0.4, Aspartate Amino Transf (AST/SGOT) 14L, Alanine Aminotransferase (ALT/SGPT) 24, Alkaline Phosphatase 67, Troponin I 0.000, C-Reactive Protein, Quantitative 0.5, Pro-B-Type Natriuretic Peptide 81, Total Protein 7.5, Albumin 3.2L, Globulin 4.3, Albumin/Globulin Ratio 0.7L, Triglycerides Level 129, Cholesterol Level 175, LDL Cholesterol 115H, HDL Cholesterol 34L, Cholesterol/HDL Ratio 5.1H, Thyroid Stimulating Hormone (TSH) 0.199L Height (Feet): 5 Height (Inches): 7.00 Weight (Pounds): 300 Objective General Appearance: WD/WN, no apparent distress, alert HEENT: normocephalic, atraumatic, anicteric, mucous membranes moist, PERRL, EOMI, pharynx normal, supple, no JVD Neck: non-tender, normal alignment, supple, normal inspection Respiratory/Chest: chest wall non-tender, lungs clear, normal breath sounds, no respiratory distress, no accessory muscle use Breasts: other - right breast abscesses s/p drainage, bandaged, mildly tender to palpation, no further drainage noted Cardiovascular/Chest: normal rate, regular rhythm, no gallop/murmur Abdomen: normal bowel sounds, non tender, soft, no organomegaly, no mass Skin Exam: normal pigmentation, warm/dry Neurologic: neon glass blower II-XII grossly normal, alert, oriented x 3, responsive, normal mood/affect Musculoskeletal: normal muscle bulk Assessment/Plan Assessment/Plan: A: #Right breast abscess x2 s/p I&D - improving #Right breast cellulitis - stable #Chest pain - resolving #Essential HTN - stable P: - antibiotics per ID, cefepime and vancomycin - f/u abscess cultures, will adjust antibiotics as necessary - for BP, clonidine and lisinopril per cardiology - ordering home ASA and atorvastatin - Chest pain likely 2/2 breast abscess, but f/u TTE per cardiology - Surgery Dr. Giang following, appreciate recs - ID Dr. Meadows following, appreciate recs - Cardiology Dr. Tilley following, appreciate recs CODE: Full GI: None Diet: Regular DVT prophylaxis: Heparin Dispo: pending abscess cultures for appropriate antibiotic selection for discharge Time spent on this encounter was 32 minutes which included 19 minutes of counseling and care coordination. I discussed with the nurse at bedside. Time of note may not reflect time patient was seen. Dnoovan Ribera M.D. Oct 01, 2020 23:09
[2020-10-02 04:00] VITALS: BP 164/84
--- NOTE | 2020-10-02 06:53 | NUR ---
NURSE HAND-OFF: Important Events on Shift: Dressing changed Patient Status: stable Diet: regular Pending Orders: N/A Pending Results/Labs: VT 0800 Pending MD notification:N.A Latest Vital Signs: Temperature 98.1 , Pulse 82 , B/P 164 /84 , Respiratory Rate 17 , O2 SAT 95 , Room Air, O2 Flow Rate . Vital Sign Comment: STABLE Latest Jackson Fall Score: 35 Fall Risk: Medium Risk Safety Measures: Call light Within Reach, Bed Alarm Zone 1, Side Rails Side Rails x2, Bed position Low and Locked. Fall Precautions: Yellow Socks Door Sign Patient Fall Education
--- NOTE | 2020-10-02 07:08 | NUR ---
nurse notes received patient resting comfortably in bed,no sign of distress, denies pain or discomfort,on going IVF patent and infusing well,on fall and aspiration precaution observed and maintained,plan of care was discussed verbalized understading 4 P's in progress call light w/n reach will continue royce amador
--- NOTE | 2020-10-02 07:42 | NUR ---
HAND-OFF: Report given to JACOBY Murillo.
[2020-10-02 08:00] VITALS: BP 163/96
[2020-10-02] MEDS: Lisinopril 10mg tab ORAL SCH (08:49)
[2020-10-02] MEDS ORDERED: Aspirin EC 81mg tab ORAL SCH (09:00)
[2020-10-02 09:30] VITALS: BP 150/89
[2020-10-02] MEDS ORDERED: hydroCHLOROthiazide 12.5mg TAB ORAL SCH (09:30)
[2020-10-02] MEDS ORDERED: Losartan 50mg tab ORAL SCH (09:30)
--- NOTE | 2020-10-02 10:40 | Cardiac Electrophysiology PN ---
Assessment/Plan Assessment/Plan 1. History of hypertension. DC lisinopril. Resume Cozaar, HCTZ and Amlodipine as her home dosage 2. Chest pain. Ruled out for OR protocol, likely due to breast abscess. Echocardiogram Nl EF 55% 3. Right breast abscess, status post I and D by Dr. Giang. Biopsy result is pending. Subjective Subjective Still has right breast incisional pain. No left sided chest pain.EF 55% Wants to resume her home BP meds Objective Last 24 Hour Vital Signs Date Time Temp Pulse Resp B/P (MAP) Pulse Ox O2 Delivery O2 Flow Rate FiO2 10/02/20 09:00 Room Air 10/02/20 08:49 163/96 10/02/20 08:00 96.8 72 20 163/96 (118) 95 10/02/20 04:00 98.1 82 17 164/84 (110) 95 10/01/20 21:00 Room Air 10/01/20 20:00 97.7 68 16 131/98 (109) 96 10/01/20 16:00 97.7 64 20 131/73 (92) 96 10/01/20 12:00 96.8 58 20 143/85 (104) 98 l Intake and Output 10/01/20 10/02/20 19:00 07:00 Intake Total 675 ml 1242.416 ml Balance 675 ml 1242.416 ml Intake Oral 600 ml IV Total 75 ml 1242.416 ml # Voids 3 Laboratory Tests Test 10/02/20 08:45 Vancomycin Level Trough 8.7 ug/mL (5.0-12.0) Microbiology Date/Time Source Procedure Growth Status 09/30/20 11:30 Breast Right Gram Stain - Final Resulted 09/30/20 11:30 Breast Right Wound Culture - Preliminary NO GROWTH Resulted 09/30/20 11:30 Breast Right Gram Stain - Final Resulted 09/30/20 11:30 Breast Right Wound Culture - Preliminary NO GROWTH Resulted 09/30/20 08:20 Blood Blood Culture - Preliminary NO GROWTH AFTER 24 HOURS Resulted 09/30/20 08:20 Blood Blood Culture - Preliminary NO GROWTH AFTER 24 HOURS Resulted Objective HEAD AND NECK: No JVD. LUNGS: Clear. CARDIOVASCULAR: Regular S1 and S2 with no gallop or murmur. ABDOMEN: Soft and obese. EXTREMITIES: No pitting edema. BREASTS: The right breast is covered with dressing. Abhilash Tilley MD Oct 02, 2020 10:40
[2020-10-02] MEDS: Docusate 100mg cap ORAL SCH (11:08)
[2020-10-02] MEDS: Heparin 5000 units/ml inj SUBQ SCH (11:11)
[2020-10-02] MEDS: Vancomycin 1 GM in NS 275 ML IVPB SCH (11:12)
[2020-10-02 11:17] VITALS: BP 163/96
--- NOTE | 2020-10-02 11:40 | Surgery Progress Note ---
Surgery Progress Note Subjective Procedure Performed Incision and drainage of right breast abscess x2 Symptoms: improved, tolerating diet, voiding well, passing flatus, pain decreased Objective Last 24 Hour Vital Signs Date Time Temp Pulse Resp B/P (MAP) Pulse Ox O2 Delivery O2 Flow Rate FiO2 10/02/20 11:17 72 163/96 10/02/20 11:07 163/96 10/02/20 09:00 Room Air 10/02/20 08:49 163/96 10/02/20 08:00 96.8 72 20 163/96 (118) 95 10/02/20 04:00 98.1 82 17 164/84 (110) 95 10/01/20 21:00 Room Air 10/01/20 20:00 97.7 68 16 131/98 (109) 96 10/01/20 16:00 97.7 64 20 131/73 (92) 96 10/01/20 12:00 96.8 58 20 143/85 (104) 98 I&O Intake and Output 10/01/20 10/02/20 19:00 07:00 Intake Total 675 ml 1242.416 ml Balance 675 ml 1242.416 ml Intake Oral 600 ml IV Total 75 ml 1242.416 ml # Voids 3 Dressing: saturated Wound: clean Cardiovascular: RSR Respiratory: clear Abdomen: soft, non-tender, present bowel sounds Extremities: no edema, no tenderness, no cyanosis Laboratory Tests Test 10/02/20 08:45 Vancomycin Level Trough 8.7 ug/mL (5.0-12.0) Assessment Post-op Diagnosis Right breast abscess 3 o'clock position 4 cm x 3 cm x 2 cm deep Right breast abscess 6 o'clock position 2 cm x 2 cm x 1 cm deep Plan Problems: (1) Abscess of right breast Assessment & Plan: 59-year-old female with 2 right breast abscess identified on examination. States began a few days ago now worsening. On the right breast approximately 3:00 there is a 4 cm x 3 cm fluctuant area with a 2 mm necrotic apex. Furthermore at the 6 to 7 o'clock position there is a 2 cm x 2 cm fluctuant area as well. Both areas of erythema tender but without current drainage. Consent was obtained with the patient and with her permission the right breast was cleansed prepped and draped. Using surgical instruments both abscesses were drained. Cultures were taken. Approximately 20 cc of purulent serosanguineous fluid was evacuated. Wound was irrigated with normal saline. Packing dressings were applied. Patient taught procedure well. IV antibiotics until cultures resulted and will transition to oral for discharge Local wound care with gauze packing and dressing. I will change first dressing myself tomorrow Okay for diet Pain medication ID consult Cardiology consult to ensure right sided chest pain is non cardiac and related to breast abscess Thank you will follow recommendations Dressings going well doing better improving Micro noted Transition to oral antibiotics for discharge Outpatient follow-up Local wound care Thank you discussed with ID and pcp and patient cultures noted ? duct accumulation chronic? improving now d/c planning oral abx to be safe f/u with pcp dressings prn until dry thank you (2) Cellulitis of right breast (3) Edema (4) Hypertension Eleno Giang Oct 02, 2020 11:40
[2020-10-02] MEDS ORDERED: CEPHALEXIN500 MG ORAL (11:45)
[2020-10-02] MEDS ORDERED: BACTRIM-DS1 EA ORAL (11:45)
--- NOTE | 2020-10-02 11:47 | Discharge Instructions ---
Discharge Instructions Discharge Instructions Follow up with: primary care physician Dr. Darwin Park MD/Return to Hospital if: symptoms worsen or fail to improve Diet: low fat Resume Normal Activity?: Yes Activity: resume normal activities For Congestive Heart Failure Reminder Report to your physician any weight gain of 5 pounds or more in one week. Donovan Ribera M.D. Oct 02, 2020 11:47
--- NOTE | 2020-10-02 11:55 | Discharge Summary ---
Discharge Summary Hospital Course Date of Admission Sep 30, 2020 at 09:00 Date of Discharge Oct 02, 2020 Admitting Diagnosis breast abscess Reason for Hospitalization: Right breast abscess MINI Craig is a 59 year old female who was admitted on Sep 30, 2020 at 09:00 for Breast Abscess Consultations General Surgery - Dr. Giang Infectious Disease - Dr. Meadows Cardiology - Dr. Tilley Procedures Incision and drainage of right breast abscess x [address] Giang Hospital Course A: #Right breast abscess x2 s/p I&D - improving #Right breast cellulitis - stable #Chest pain - resolving #Essential HTN - stable P: - antibiotics per ID, cefepime and vancomycin - Discharge with 1 week of Bactrim and Keflex - F/U with Dr. Darwin Queen, primary care physician next week - f/u abscess cultures, will adjust antibiotics as necessary - for BP, clonidine and lisinopril per cardiology - ordering home ASA and atorvastatin - Chest pain likely 2/2 breast abscess, but f/u TTE per cardiology - Surgery Dr. Giang following, appreciate recs - ID Dr. Meadows following, appreciate recs - Cardiology Dr. Tilley following, appreciate recs CODE: Full GI: None Diet: Regular DVT prophylaxis: Heparin Dispo: pending abscess cultures for appropriate antibiotic selection for discharge Time spent on this encounter was 32 minutes which included 19 minutes of counseling and care coordination. I discussed with the nurse at bedside. Time of note may not reflect time patient was seen. Discharge Medications New Medications: Cephalexin* (Keflex*) 500 Mg Capsule 500 MG ORAL EVERY 12 HOURS, #14 CAP 0 Refills Continued Medications: Amlodipine Besylate* (Amlodipine Besylate*) 10 Mg Tablet 10 MG ORAL DAILY, TAB Aspirin* (Aspir 81*) 81 Mg Tablet. 81 MG ORAL DAILY, TAB Atorvastatin Calcium* (Atorvastatin Calcium*) 20 Mg Tablet 10 MG ORAL BEDTIME, TAB Bimatoprost (Lumigan) 2.5 Ml Drops 1 DROP BOTH EYES DAILY, #2.5 ML 0 Refills Hydrochlorothiazide* (Hydrochlorothiazide*) 12.5 Mg Tablet 12.5 MG ORAL DAILY for Hypertension, TAB Losartan Potassium* (Losartan Potassium*) 25 Mg Tablet MG ORAL DAILY for Hypertension, TAB Meloxicam* (Meloxicam*) 15 Mg Tablet 15 MG PO DAILY, TAB Omeprazole (Omeprazole) 20 Mg Tablet.dr 20 MG ORAL DAILY, TAB Paroxetine Hcl* (Paxil*) 20 Mg Tablet 20 MG ORAL DAILY for , TAB 0 Refills Timolol Maleate (Timolol Maleate) 5 Ml Drops 1 DROP BOTH EYES TWICE A DAY, #1 ML 0 Refills Trimethoprim/Sulfamethoxazole (Bactrim Ds Tablet) 1 Each Tablet 1 TAB ORAL TWICE A DAY for 7 Days, #14 TAB (This prescription has been renewed) Discontinued Medications: Amoxicillin/Potassium Clav 875-125* (Augmentin 875-125 Tablet*) 1 Each Tablet 1 TAB ORAL TWICE A DAY, #14 TAB Clotrimazole (Clotrimazole) 10 Gm Powder 10 GM MC, GM Levofloxacin (Levofloxacin*) 500 Mg Tablet 750 MG ORAL DAILY for 7 Days, TAB Lisinopril* (Lisinopril*) 10 Mg Tablet 10 MG ORAL DAILY, TAB Meloxicam* (Mobic*) 15 Mg Tablet 15 MG ORAL DAILY, #30 TAB 0 Refills Metronidazole* (Flagyl*) 500 Mg Tablet 500 MG ORAL EVERY 8 HOURS, TAB Naproxen* (Naproxen*) 500 Mg Tablet 500 MG ORAL TWICE A DAY, TAB Naproxen* (Naprosyn*) 250 Mg Tablet 500 MG ORAL TWICE A DAY, #60 TAB 0 Refills Discharge Condition Upon Discharge: improving Discharge Vital Signs Last Vital Signs Date Time Temp Pulse Resp B/P (MAP) Pulse Ox O2 Delivery O2 Flow Rate FiO2 10/02/20 11:17 72 163/96 10/02/20 09:00 Room Air 10/02/20 08:00 96.8 20 95 Physical Exam on day of discharge: Gen: NAD, WD, WN, alert and oriented x3 HEENT: NCAT, PERRLA, EOMI, Nares normal Neck: Supple, FROM, No LAD Breast: right breast wound clean, dry, bandaged. No drainage noted. Left breast unremarkable. Lung: CTA BL, no wheezes, or rales Heart: RRR, Normal S1/S2, No murmurs, rubs, or gallops Abdomen: Soft, nontender, nondistended, no rebound Extremities: No cyanosis or edema. FROM Neuro: Grossly intact Psych: pleasant, normal affect and mood Discharge Disposition Patient was discharged to home Discharge Diagnoses: (1) Abscess of right breast (2) Cellulitis of right breast (3) Hypertension Discharge Instructions Discharge Instructions Follow up with: primary care physician Dr. Darwin Queen Call MD/Return to Hospital if: symptoms worsen or fail to improve Activity: resume normal activities Special Instructions Take the two new antibiotic medications for the next one week. Bactrim - take 1 tablet twice a day for 7 days Keflex - take 1 tablet twice a day for 7 days These 2 new prescriptions have been sent to [facility] Dressing Care: may change Contact your physician for: redness, yellowish discharge in the op. site Donovan Ribera M.D. Oct 02, 2020 11:55
--- NOTE | 2020-10-02 13:00 | NUR ---
nurse notes discharge to home obtained, discharge instruction packet handed to patient, discharge teaching done all questions answered verbalized understanding [id number] discharged in stable condition with all belongings given ,accompanied by Du CAMARA, refused to be wheeled, discharged via private car royce amador
--- NOTE | 2020-10-02 17:06 | NUR ---
INSURANCE DC SUMMARY/ INSTRUCTIONS/ CLINICALS FAXED TO [facility] [phone]
[2020-10-02] MEDS ORDERED: Vancomycin 1.25gm/250ml Premix IVPB SCH (22:00)
== END 2020-10-02 13:10 | disposition home or self-care (01) | DRG 385 ==
LOC: EMR 08:19 → 4E 09:00 → EDBEDREQ 09:54 → 4E 12:20
PROC: 0H9T0ZZ Drainage of Right Breast, Open Approach (ICD-10-PCS; principal; 2020-09-30)
DX: N61.1 Abscess of the breast and nipple (principal); N61.0 Mastitis without abscess; E66.01 Morbid (severe) obesity due to excess calories; Z68.42 Body mass index [BMI] 45.0-49.9, adult; I10 Essential (primary) hypertension; Z79.82 Long term (current) use of aspirin; H40.9 Unspecified glaucoma; E78.00 Pure hypercholesterolemia, unspecified
CPT/HCPCS: 36415; 71045; 80053; 80061; 80202; 81003; 83036; 83605; 83880; 84443; 84484; 85025; 85610; 85651; 85730; 86140; 86850; 86900; 86901; 87040; 87070; 87205; 93005; 93306; 96361; 96365; 99285; J7030